=== PATIENT | female | born 1960 | race Caucasian/White ===

== ENCOUNTER 2021-12-31 16:18 | Inpatient (IN) ==
[2021-12-31] MEDS ORDERED: IOPAMIDOL 100 ML BOTTLE IV ONE (16:19)
[2021-12-31] MEDS ORDERED: IPRATROPIUM/ALBUTEROL 3 ML AMPUL.NEB NEB ONE ×3 (16:24→20:20)
[2021-12-31] MEDS ORDERED: methylPREDNISolone SOD SUCC 125 MG/2 ML VIAL IV ONE (16:35)
--- NOTE | 2021-12-31 16:43 | Emergency Department Note ---
SOB HPI General Chief Complaint: Shortness of Breath/Dyspnea Stated Complaint: shortness of breath Time Seen by Provider: 12/31/21 16:24 Source: patient Mode of arrival: wheelchair Limitations: no limitations History of Present Illness HPI Narrative: Narrative: 62-year-old female who with a history of suprapubic catheter, degenerative disc disease, chronic pain, asthma, hypertension, psoriasis and anxiety disorder presents the ER from the [facility] where she had oxygen saturations in the 70s. She states her asthma has been flaring up a lot lately and she uses albuterol as needed but it has not been helping her today. She also takes fluticasone. But this is intranasally for allergies. She denies chest pain, chest pressure, fever or chills. She states she has been wheezing significantly and has a hard time breathing. Related Data Home Medications Medication Instructions Recorded Confirmed albuterol sulfate 90 mcg/actuation 2 puff INHALATION .Q4-6H g 04/03/20 12/31/21 aerosol inhaler (ProAir HFA) fluticasone propionate 50 1 spray INTRANASAL PRN ml 04/03/20 12/31/21 mcg/actuation nasal spray,suspension gabapentin 800 mg tablet 800 mg PO TID 04/03/20 12/31/21 (Neurontin) hydrocodone 10 mg-acetaminophen 1 tab PO TID tab 04/03/20 12/31/21 325 mg tablet ([place]) omeprazole 40 mg capsule,delayed 40 mg PO QDAY 04/03/20 12/31/21 release clonazepam 1 mg tablet 1 tab PO TID PRN 12/31/21 12/31/21 cyclobenzaprine 10 mg tablet 1 tab PO HS 12/31/21 12/31/21 tizanidine 4 mg tablet 1 tab PO TID 12/31/21 12/31/21 Previous Rx's Medication Instructions Recorded guaifenesin 400 mg tablet 400 mg PO .q6 hours PRN #30 tab 07/09/18 Allergies Allergy/AdvReac Type Severity Reaction Status Date / Time codeine Allergy Severe Headache Verified 12/31/21 16:21 Sulfa (Sulfonamide Allergy Mild Unknown Verified 12/31/21 16:21 Antibiotics) methylprednisolone AdvReac Severe Nausea Verified 12/31/21 16:21 Review of Systems ROS ROS Narrative: Narrative: All systems ED: reviewed and negative except as stated. PFSH Narrative Patient History Narrative: Narrative: Medical/Surgical/Family History All Active Problems (Updated 12/31/21 @ 19:22 by Collin Moctezuma PA-C) Asthma exacerbation (Acute) Acute hypoxemic respiratory failure (Acute) Acute exacerbation of chronic obstructive pulmonary disease (COPD) (Acute) Current smoker (Acute) Suprapubic catheter dysfunction (Acute) Encounter for suprapubic catheter care (Acute) Chronic suprapubic catheter (Acute) History of mandibular surgery (Acute) History of surgery (Chronic ~2011) Chronic pain syndrome (Chronic) Degenerative disc disease (Chronic) Acute retention of urine (Chronic) Ovarian mass (Chronic) Neurogenic bladder (Chronic) Abnormal weight loss (Acute) Lumbar back pain with radiculopathy affecting left lower extremity (Chronic) Muscle cramps (Chronic) Hypomagnesemia (Chronic) Vitamin D deficiency (Chronic) Spasm of back muscles (Chronic) Hypertension (Chronic) Vitamin B 12 deficiency (Chronic 09/12/13) Allergic rhinitis (Chronic) Psoriasis (Chronic) Peripheral neuropathy (Chronic 09/12/13) Osteoporosis (Chronic 06/15/13) Migraine (Chronic) Menopausal syndrome (Chronic 04/18/13) Low back pain (Chronic) snf current use of anticoagulant (Chronic) Gastroesophageal reflux (Chronic) Depression (Chronic) Chronic pain (Chronic) Breast pain (Chronic 04/18/13) Asthma (Chronic) Anxiety disorder (Chronic) Alcohol abuse, in remission (Chronic) Medical History (Updated 12/31/21 @ 19:22 by Collin Moctezuma PA-C) Acute retention of urine Alcohol abuse, in remission Allergic rhinitis Anemia Angioedema (09/19/14) Anxiety disorder Arthropathy Asthma Breast pain (04/18/13) Capsular contracture of breast implant (04/18/13) Chronic pain Chronic pain syndrome Degenerative disc disease Depression Edema Encounter for routine gynecological examination (04/18/13) Family history of diabetes mellitus (03/16/13) Fatigue Gastric ulcer, chronic (08/23/11) [facility] Dr. 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 Spasm of back muscles Thrombosis/embolism, venous Tobacco abuse (12/14/13) still smoking advised to quit, counselled for 5 mins UTI (urinary tract infection) Vitamin B 12 deficiency (09/12/13) on 1,000mcg daily check b12 levels Vitamin D deficiency Surgical History History of breast augmentation (~1987) bilateral implants, with intracapsular leaks, but not extracapsular. History of colonoscopy done in jul 2011, while patient was inpatient for GI bleed. as per note in system, no abnormalities detected History of esophagogastroduodenoscopy (08/23/11) [facility] Dr. Cooper did an exploratory laparotomy with enterotomy and oversew of bleeding duodenal ulcer converted to Bilroth II partial gastric resection with gastrojejunostomy History of mandibular surgery History of surgery (~2011) Perforated ulcer; partial pancreas, partial liver, partial small intestine and partial stomach removal Family History Brother Alcohol abuse Grandfather Alcohol abuse Maternal Uncle Alcohol abuse Mother Alzheimer's disease Type 2 diabetes mellitus Manic affective disorder, recurrent episode, unspecified degree Diabetes mellitus Unknown No problems noted. Father Cardiac disease Malignant neoplasm of pancreas May have had but does not know details Schizophrenia Social History Smoking Status: Current every day smoker Alcohol Intake Frequency: does not drink Substance Use: marijuana Exam Narrative Narrative: Narrative: Gen: Patient is tripoding having difficulty breathing Eyes: PERRL, no conjunctival injection , and symmetrical lids. Sclerae non icteric HENMT: Normocephalic Atraumatic head, external nose and ears. Moist MM. Neck: Symmetric, trachea midline, no accessory muscle use CVS: +S1/S2, No murmurs or gallops. Radial pulses 2+ and equal bilat. No swelling RESP: Patient has very poor air movement with diffuse wheezing heard throughout GI: Nontender/Nondistended (NTND), No focal tenderness suprapubic catheter in place MSK: Extremities w/o deformity or ttp. No cyanosis or clubbing. Skin: Warm, Dry . No rashes or lesions . Cap refill less than 2. Neuro: No focal neurological deficit Psych: Awake, Alert, & Oriented (AAO) x3. Appropriate mood and affect . General Limitations: no limitations Course Vital Signs Vital signs: Vital Signs Temperature 97.2 F 12/31/21 16:18 Pulse Rate 119 H 12/31/21 16:18 Respiratory Rate 22 12/31/21 16:18 Blood Pressure 148/90 12/31/21 16:18 Pulse Oximetry (%) 70 L 12/31/21 16:18 Temperature 97.2 F 12/31/21 16:18 Pulse Rate 96 H 12/31/21 19:17 Respiratory Rate 16 12/31/21 19:17 Blood Pressure 132/87 12/31/21 16:46 Pulse Oximetry (%) 95 12/31/21 19:17 [facility] MDM Narrative Medical decision making narrative: Narrative: Patient presented with oxygen saturation in the 70s, she was placed on high flow oxygen, she was given [id number] DuoNeb's and 125 mg of Solu-Medrol. An EKG and chest x-ray was obtained as well as CBC, CMP and troponin. As well as venous blood gas and COVID testing. CBC: Unremarkable CMP: Hyponatremia 126 otherwise unremarkable CXR: Normal Troponin: Low Venous blood gas: Lactate normal, CO2 64, chronic retention COVID: EKG: Sinus tachycardia at a rate of 102 with right atrial enlargement, posterior fascicular block, no ST changes to suggest ischemia, computer is falsely calling artifact possible acute pericarditis Patient got up and ambulated to the bathroom under her own accord and had saturations in the 60s. Patient will also be given magnesium at this time and another DuoNeb to round out 3 DuoNeb's. Hospitalist will be consulted for admission. She remains to be extremely wheezy with very poor air movement. Hospitalist: Dr Marvin Graciously agreed to admit the patient Lab Data Result diagrams: 12/31/21 16:40 12/31/21 16:40 Labs: Lab Results 12/31/21 12/31/21 12/31/21 Range/Units 16:40 16:40 16:44 WBC 7.7 (4.5-11.0) K/mcL RBC 4.25 (3.59-5.38) M/mcL Hgb 14.1 (11.2-15.7) g/dL Hct 42.3 (34.1-44.9) % MCV 99.5 (80.0-100.0) fL MCH 33.2 (26.0-34.0) pg MCHC 33.3 (31.0-36.0) g/dL RDW 10.8 L (11.5-14.5) % Plt Count 248 (140-440) K/mcL MPV 8.7 (7.4-10.4) fL Neut % (Auto) 67.1 (38.0-78.0) % Lymph % (Auto) 22.9 (15.5-49.0) % Dane % (Auto) 8.0 (1.0-12.0) % Eos % (Auto) 1.6 (0.0-7.0) % Baso % (Auto) 0.4 (0.0-2.0) % Lymph # (Auto) 1.77 (1.50-4.80) K/mcL Dane # (Auto) 0.62 (0.10-0.90) K/mcL Eos # (Auto) 0.12 (0.00-0.70) K/mcL Baso # (Auto) 0.03 (0.00-0.30) K/mcL Absolute Neutrophils 5.18 (1.80-8.00) K/mcL POC VBG pH 7.32 (7.32-7.42) POC VBG pCO2 at Temp 64.4 H* (41-51) POC VBG pO2 100 H (25-40) POC VBG HCO3 33.3 H (24-28) POC VBG Total CO2 35.0 H (25-29) POC Venous O2 Sat 97.0 H (40-70) POC VBG Base Excess 7.0 H* (-2-2) Sodium 126 L (133-145) mmol/L Potassium 4.7 (3.3-5.1) mmol/L Chloride 88 L (96-108) mmol/L Carbon Dioxide 32 H (22-30) mmol/L Anion Gap 6.0 L (8.0-16.0) BUN 8 (8-23) mg/dL Creatinine 0.5 L (0.6-1.1) mg/dL GFR Calculation 104 Glucose 87 (70-105) mg/dL POC Venous Lactate 0.6 (0.5-2) Calcium 8.8 (8.6-10.4) mg/dL Total Bilirubin 0.2 (0.1-1.0) mg/dL AST 16 (<32) U/L ALT 11 (<40) U/L Alkaline Phosphatase 45 (39-117) U/L Total Protein 6.9 (5.9-8.4) gm/dL Albumin 4.3 (3.2-5.2) gm/dL Globulin 2.6 (2.2-3.7) gm/dL Albumin/Globulin Ratio 1.7 (1.0-2.3) POC Troponin I (0.02-0.08) 12/31/21 Range/Units 16:46 WBC (4.5-11.0) K/mcL RBC (3.59-5.38) M/mcL Hgb (11.2-15.7) g/dL Hct (34.1-44.9) % MCV (80.0-100.0) fL MCH (26.0-34.0) pg MCHC (31.0-36.0) g/dL RDW (11.5-14.5) % Plt Count (140-440) K/mcL MPV (7.4-10.4) fL Neut % (Auto) (38.0-78.0) % Lymph % (Auto) (15.5-49.0) % Dane % (Auto) (1.0-12.0) % Eos % (Auto) (0.0-7.0) % Baso % (Auto) (0.0-2.0) % Lymph # (Auto) (1.50-4.80) K/mcL Dane # (Auto) (0.10-0.90) K/mcL Eos # (Auto) (0.00-0.70) K/mcL Baso # (Auto) (0.00-0.30) K/mcL Absolute Neutrophils (1.80-8.00) K/mcL POC VBG pH (7.32-7.42) POC VBG pCO2 at Temp (41-51) POC VBG pO2 (25-40) POC VBG HCO3 (24-28) POC VBG Total CO2 (25-29) POC Venous O2 Sat (40-70) POC VBG Base Excess (-2-2) Sodium (133-145) mmol/L Potassium (3.3-5.1) mmol/L Chloride (96-108) mmol/L Carbon Dioxide (22-30) mmol/L Anion Gap (8.0-16.0) BUN (8-23) mg/dL Creatinine (0.6-1.1) mg/dL GFR Calculation Glucose (70-105) mg/dL POC Venous Lactate (0.5-2) Calcium (8.6-10.4) mg/dL Total Bilirubin (0.1-1.0) mg/dL AST (<32) U/L ALT (<40) U/L Alkaline Phosphatase (39-117) U/L Total Protein (5.9-8.4) gm/dL Albumin (3.2-5.2) gm/dL Globulin (2.2-3.7) gm/dL Albumin/Globulin Ratio (1.0-2.3) POC Troponin I 0.01 L (0.02-0.08) ED POC Tests ED POC Tests: JAXON - SARS Antigen Negative Discharge Plan Patient/Caregiver Discharge Instructions Pt seen by INVESTIGATIVE AGENT/PA only: Yes Clinical Impression: Asthma exacerbation Patient Disposition: Xfer As Inpt ([facility]) Follow up with: Garland Cadena ARNP [Primary Care Provider] - Prescriptions: No Action fluticasone propionate 50 mcg/actuation spray,suspension 1 spray INTRANASAL PRN 0RF Rx Instructions: administer into each nostril omeprazole 40 mg capsule,delayed release(DR/EC) 40 mg PO QDAY 0RF albuterol sulfate [ProAir HFA] 90 mcg/actuation HFA aerosol inhaler 2 puff INHALATION .Q4-6H 0RF gabapentin [Neurontin] 800 mg tablet 800 mg PO TID 0RF hydrocodone-acetaminophen [[place]] 10-325 mg tablet 1 tab PO Q4H 0RF guaifenesin 400 mg tablet 400 mg PO .q6 hours PRN (Reason: congestion) Qty: 30 0RF cyclobenzaprine 10 mg tablet 1 tab PO HS 0RF tizanidine 4 mg tablet 1 tab PO TID 0RF clonazepam 1 mg tablet 1 tab PO TID PRN (Reason: Pain) 0RF Plan of Treatment: At this time, she will be started on duo nebs, and Pulmicort. She received Solu-Medrol 125 mg IV x1. She will be empirically covered with ceftriaxone and Zithromax. In the interim, respiratory panel, COVID-19 PCR, and CT chest angiogram is pending. We will continue supplemental O2 for sat goal greater t peres 92%.
--- NOTE | 2021-12-31 16:48 | XRay Report ---
INDICATION: SOB TECHNIQUE: AP portable supine chest x-ray COMPARISON: Previous chest x-ray dated 01/25/2012 FINDINGS: Lungs:No focal pulmonary parenchymal infiltrate or mass Heart, vascular:No significant cardiomegaly. Pulmonary vascularity is normal. No pulmonary edema or pulmonary congestion Mediastinum, stone:No mediastinal widening. No hilar mass Pleura:No pleural fluid. No pleural-based mass or calcification Skeletal:Negative. There are densely calcified breast implants, unchanged IMPRESSION: 1. No acute abnormality 2. No interval change since 01/25/2012 Interpreted and Authenticated by: Marck Sanchez 12/31/21
[2021-12-31] MEDS ORDERED: MAGNESIUM SULFATE 2 GM/50 ML BAG IV ONE (17:08)
[2021-12-31 17:22] LABS: Basophils # (Auto) 0.03 K/mcL (0.00-0.30); Basophils % (Auto) 0.4 % (0.0-2.0); Eosinophils # (Auto) 0.12 K/mcL (0.00-0.70); Eosinophils % (Auto) 1.6 % (0.0-7.0); Hematocrit 42.3 % (34.1-44.9); Hemoglobin 14.1 g/dL (11.2-15.7); Lymphocytes # (Auto) 1.77 K/mcL (1.50-4.80); Lymphocytes % (Auto) 22.9 % (15.5-49.0); Mean Cell Volume 99.5 fL (80.0-100.0); Mean Corpuscular HGB Conc 33.3 g/dL (31.0-36.0); Mean Platelet Volume 8.7 fL (7.4-10.4); Monocytes # (Auto) 0.62 K/mcL (0.10-0.90); Neutrophils % (Auto) 67.1 % (38.0-78.0); Platelet Count 248 K/mcL (140-440); RBC 4.25 M/mcL (3.59-5.38); Red Cell Distribution Width 10.8 % (11.5-14.5); WBC 7.7 K/mcL (4.5-11.0)
[2021-12-31 17:43] LABS: ALT/SGPT 11 U/L (<40); AST/SGOT 16 U/L (<32); Albumin 4.3 gm/dL (3.2-5.2); Albumin/Globulin Ratio 1.7 (1.0-2.3); Alkaline Phosphatase 45 U/L (39-117); Bilirubin,Total 0.2 mg/dL (0.1-1.0); Blood Urea Nitrogen 8 mg/dL (8-23); Calcium 8.8 mg/dL (8.6-10.4); Carbon Dioxide 32 mmol/L (22-30); Chloride 88 mmol/L (96-108); Globulin 2.6 gm/dL (2.2-3.7); Glomerular Filtration Rate 104; Glucose 87 mg/dL (70-105)
[2021-12-31] MEDS ORDERED: cefTRIAXone 1 GM VIAL IV ONE (17:47)
[2021-12-31] MEDS ORDERED: AZITHROMYCIN 500 MG in DEXTROSE 5% IN WATER 250 ML IV ONE (17:47)
--- NOTE | 2021-12-31 18:03 | Internal Med History&Physical ---
HPI History of Present Illness Patient information: Note initiated : 12/31/21 at 5:59 pm Service Date, if different from initiated Date: [as above] Patient: Dorcas Velasquez a 61 y/o F admitted on for shortness of breath. Chief Complaint: [SOB] Chief complaint: SOB History of present illness: Ms. Velasquez is a 61 year old F smoker with a past medical history significant for COPD, chronic pain syndrome, and anxiety/depression who presents to the hospital with 1 day onset of progressive dyspnea. She states that she has had chronic respiratory issues in the past and is presented to the hospital several times but unfortunately continues to smoke 1 to 5 cigarettes daily. She denied a productive cough, fevers or chills. She denies any sick contacts. In terms of COVID-19, she is only received 1 vaccine and she is not interested in further vaccinations. She states that her rapid COVID-19 was negative. On arrival to the ER, she was hemodynamically tenuous and afebrile. Her O2 sat was in the 60s to 70s. She was placed on supplemental O2 and her O2 recovered quite quickly. The patient's chest x-ray revealed no acute abnormality. The hospitalist service was asked admit the patient for further management and evaluation of her acute hypoxemic respiratory failure in the setting of COPD exacerbation. Review of Systems All systems: reviewed and no additional remarkable complaints except as stated Constitutional Constitutional: Present as per HPI EENT Eyes: Present as per HPI; Absent blurry vision Cardiovascular Cardiovascular: Present as per HPI; Absent chest pain, dyspnea, dyspnea on exertion, leg edema or palpatations Respiratory Respiratory: Present as per HPI, dyspnea, dyspnea on exertion and wheezing; Absent cough or stridor Gastrointestinal Gastrointestinal: Present as per HPI; Absent abdominal pain, diarrhea, dysphagia, hematemesis, melena, nausea or vomiting Musculoskeletal Musculoskeletal: Present as per HPI; Absent joint swelling, limited range of motion, muscle cramps, muscle weakness or myalgias Integumentary Integumentary: Present as per HPI; Absent erythema, new lesions, rash or wounds Neurological Neurological: Present as per HPI; Absent abnormal gait, behavioral changes, focal weakness, headache(s), loss of vision, numbness, sensory deficit or syncope Endocrine Endocrine: Absent change in body appearance, fatigue or heat intolerance Hematologic/Lymphatic Hematologic/Lymphatic: Present as per HPI PFSH PFSH All Active Problems (Updated 12/31/21 @ 18:02 by Doc Wong MD) Acute hypoxemic respiratory failure (Acute) Acute exacerbation of chronic obstructive pulmonary disease (COPD) (Acute) Current smoker (Acute) Suprapubic catheter dysfunction (Acute) Encounter for suprapubic catheter care (Acute) Chronic suprapubic catheter (Acute) History of mandibular surgery (Acute) History of surgery (Chronic ~2011) Chronic pain syndrome (Chronic) Degenerative disc disease (Chronic) Acute retention of urine (Chronic) Ovarian mass (Chronic) Neurogenic bladder (Chronic) Abnormal weight loss (Acute) Lumbar back pain with radiculopathy affecting left lower extremity (Chronic) Muscle cramps (Chronic) Hypomagnesemia (Chronic) Vitamin D deficiency (Chronic) Spasm of back muscles (Chronic) Hypertension (Chronic) Vitamin B 12 deficiency (Chronic 09/12/13) Allergic rhinitis (Chronic) Psoriasis (Chronic) Peripheral neuropathy (Chronic 09/12/13) Osteoporosis (Chronic 06/15/13) Migraine (Chronic) Menopausal syndrome (Chronic 04/18/13) Low back pain (Chronic) 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) Gastroesophageal reflux (Chronic) Depression (Chronic) Chronic pain (Chronic) Breast pain (Chronic 04/18/13) Asthma (Chronic) Anxiety disorder (Chronic) Alcohol abuse, in remission (Chronic) Medical History (Updated 12/31/21 @ 18:02 by Doc Wong MD) Acute retention of urine Alcohol abuse, in remission Allergic rhinitis Anemia Angioedema (09/19/14) Anxiety disorder Arthropathy Asthma Breast pain (04/18/13) Capsular contracture of breast implant (04/18/13) Chronic pain Chronic pain syndrome Degenerative disc disease Depression Edema Encounter for routine gynecological examination (04/18/13) Family history of diabetes mellitus (03/16/13) Fatigue Gastric ulcer, chronic (08/23/11) [facility] Dr. Cooper did an exploratory laparotomy with enterotomy and oversew of bleeding duodenal ulcer converted to Bilroth II partial gastric resection with gastrojejunostomy Gastroesophageal reflux Hyperkalemia NOrmal now, Hypertension Hypokalemia (09/01/11) As in patient Hypomagnesemia snf current use of anticoagulant Low back pain chr, refer to PT Menopausal syndrome (04/18/13) Migraine Muscle cramps Neurogenic bladder Osteoporosis (06/15/13) Calcium Vit D3 1,000 units Alendronate 70mg q weekly Ovarian mass Pain in joint christian knee pain, refer to PT Pain in joint, lower leg Peripheral neuropathy (09/12/13) Psoriasis Pulmonary embolism s/p treatment for 6 months Routine cervical smear (04/18/13) Spasm of back muscles chr issue, now has been flaring up, remote h/o trauma, notes used to use soma before, will give trial of cyclobenzapril 5mg tid. Spasm of back muscles Thrombosis/embolism, venous Tobacco abuse (12/14/13) still smoking advised to quit, counselled for 5 mins UTI (urinary tract infection) Vitamin B 12 deficiency (09/12/13) on 1,000mcg daily check b12 levels Vitamin D deficiency Surgical History History of breast augmentation (~1987) bilateral implants, with intracapsular leaks, but not extracapsular. History of colonoscopy done in jul 2011, while patient was inpatient for GI bleed. as per note in system, no abnormalities detected History of esophagogastroduodenoscopy (08/23/11) [facility] Dr. Cooper did an exploratory laparotomy with enterotomy and oversew of bleeding duodenal ulcer converted to Bilroth II partial gastric resection with gastrojejunostomy History of mandibular surgery History of surgery (~2011) Perforated ulcer; partial pancreas, partial liver, partial small intestine and partial stomach removal Family History Brother Alcohol abuse Grandfather Alcohol abuse Maternal Uncle Alcohol abuse Mother Alzheimer's disease Type 2 diabetes mellitus Manic affective disorder, recurrent episode, unspecified degree Diabetes mellitus Unknown No problems noted. Father Cardiac disease Malignant neoplasm of pancreas May have had but does not know details Schizophrenia Social History marital status: legally occupational status: disabled physical activity: none alcohol intake frequency: does not drink substance use type: marijuana additional history: Patient has a prescription for medical marijuana. MEDS/ALLERGIES Home Medications and Allergies Home Medications Medication Instructions Recorded Confirmed Type guaifenesin 400 mg tablet 400 mg PO .q6 hours PRN #30 tab 07/09/18 12/31/21 Rx albuterol sulfate 90 mcg/actuation 2 puff INHALATION .Q4-6H g 04/03/20 12/31/21 History aerosol inhaler (ProAir HFA) fluticasone propionate 50 1 spray INTRANASAL PRN ml 04/03/20 12/31/21 History mcg/actuation nasal spray,suspension gabapentin 800 mg tablet 800 mg PO TID 04/03/20 12/31/21 History (Neurontin) hydrocodone 10 mg-acetaminophen 1 tab PO TID tab 04/03/20 12/31/21 History 325 mg tablet ([place]) omeprazole 40 mg capsule,delayed 40 mg PO QDAY 04/03/20 12/31/21 History release alprazolam 2 mg tablet See Rx Instructions PO QDAY tab 04/24/20 12/31/21 History Allergies Allergy/AdvReac Type Severity Reaction Status Date / Time codeine Allergy Severe Headache Verified 12/31/21 16:21 Sulfa (Sulfonamide Allergy Mild Unknown Verified 12/31/21 16:21 Antibiotics) methylprednisolone AdvReac Severe Nausea Verified 12/31/21 16:21 EXAM Constitutional Vitals: Temp Pulse Resp BP Pulse Ox 97.2 F 88 14 132/87 100 12/31/21 16:18 12/31/21 17:34 12/31/21 17:34 12/31/21 16:46 12/31/21 17:34 General appearance: average body habitus Head Head exam: Present atraumatic, normal inspection and normocephalic Eye Eye exam: Present EOMI, normal appearance and PERRL; Absent conjunctival injection ENT ENT exam: Present normal exam; Absent mucous membranes dry Neck Neck exam: Present full ROM; Absent lymphadenopathy Respiratory Respiratory exam: Present decreased breath sounds and prolonged expiratory phase; Absent CTAB, respiratory distress or wheezes Cardiovascular Cardiovascular exam: Present normal rate and rhythm and RRR; Absent JVD GI/Abdominal GI/Abdominal exam: Present normal bowel sounds and soft; Absent diminished bowel sounds, distended, guarding, mass, rebound or tenderness Neurological Exam Neurological exam: Present alert, CN II-XII intact and oriented X3 Psychiatric Psychiatric exam: Present normal affect and normal mood Skin Skin exam: Present intact and warm; Absent erythema, pallor, petechiae or rash DATA Data Completed and Pending Labs: Labs from last 24 hours 12/31/21 12/31/2122 16:46 16:44 16:40 WBC RBC Hgb Hct MCV MCH MCHC RDW Plt Count MPV Neut % (Auto) Lymph % (Auto) [place] % (Auto) Eos % (Auto) Baso % (Auto) Lymph # (Auto) [place] # (Auto) Eos # (Auto) Baso # (Auto) Absolute Neutrophils POC VBG pH 7.32 POC VBG pCO2 at Temp 64.4 H* POC VBG pO2 100 H POC VBG HCO3 33.3 H POC VBG Total CO2 35.0 H POC Venous O2 Sat 97.0 H POC VBG Base Excess 7.0 H* Sodium 126 L Potassium 4.7 Chloride 88 L Carbon Dioxide 32 H Anion Gap 6.0 L BUN 8 Creatinine 0.5 L GFR Calculation 104 Glucose 87 POC Venous Lactate 0.6 Calcium 8.8 Total Bilirubin 0.2 AST 16 ALT 11 Alkaline Phosphatase 45 Total Protein 6.9 Albumin 4.3 Globulin 2.6 Albumin/Globulin Ratio 1.7 POC Troponin I 0.01 L 12/31/21 16:40 WBC 7.7 RBC 4.25 Hgb 14.1 Hct 42.3 MCV 99.5 MCH 33.2 MCHC 33.3 RDW 10.8 L Plt Count 248 MPV 8.7 Neut % (Auto) 67.1 Lymph % (Auto) 22.9 [place] % (Auto) 8.0 Eos % (Auto) 1.6 Baso % (Auto) 0.4 Lymph # (Auto) 1.77 [place] # (Auto) 0.62 Eos # (Auto) 0.12 Baso # (Auto) 0.03 Absolute Neutrophils 5.18 POC VBG pH POC VBG pCO2 at Temp POC VBG pO2 POC VBG HCO3 POC VBG Total CO2 POC Venous O2 Sat POC VBG Base Excess Sodium Potassium Chloride Carbon Dioxide Anion Gap BUN Creatinine GFR Calculation Glucose POC Venous Lactate Calcium Total Bilirubin AST ALT Alkaline Phosphatase Total Protein Albumin Globulin Albumin/Globulin Ratio POC Troponin I A/P Assessment and plan (1) Current smoker: Status: Acute (2) Acute exacerbation of chronic obstructive pulmonary disease (COPD): Status: Acute (3) Acute hypoxemic respiratory failure: Status: Acute (4) Depression: Status: Chronic (5) Chronic pain: Status: Chronic (6) Anxiety disorder: Status: Chronic (7) Alcohol abuse, in remission: Status: Chronic Narrative A/P Narrative: The patient has acute hypoxemic respiratory failure in the setting of COPD exacerbation she continues to smoke. Smoking cessation counseling was provided. Plan of Treatment: At this time, she will be started on duo nebs, and Pulmicort. She received Solu-Medrol 125 mg IV x1. She will be empirically covered with ceftriaxone and Zithromax. In the interim, respiratory panel, COVID-19 PCR, and CT chest angiogram is pending. We will continue supplemental O2 for sat goal greater than 92%. Time Spent With Patient Time: Total time spent is greater than 50% in coordination of care (as documented) at patient's floor/unit and/or counseling patient: Total time spent with greater than 50% in coordination of care (as documented) at patient's floor/unit and/or counseling patient:: 50 - 70 minutes
--- NOTE | 2021-12-31 19:49 | Cat Scan Report ---
INDICATION: hypoxic resp failure COMPARISON: Previous chest x-ray dated 03/02/2022. Previous chest CTA dated 01/25/2012 TECHNIQUE: Axial images obtained through the chest. 80ml Isovue 370 injected intravenously, and scanning was performed during pulmonary arterial phase. Sagittally and coronally reformatted images were obtained. MIP reformatted images. FINDINGS: Lungs:Severe centrilobular emphysema. No focal pulmonary parenchymal mass or infiltrate. No focal abnormality. Mediastinum, vascular:Main pulmonary artery, right pulmonary artery, left pulmonary artery are negative. No intraluminal filling defects. No lobar, segmental, or subsegmental emboli. Thoracic aorta is negative. No aneurysmal dilatation No pathologic mediastinal or hilar adenopathy Main pulmonary artery measures 3.0 cm in cross-sectional diameter. This is borderline enlarged Heart:No cardiomegaly. No pericardial effusion. There is no reflux of contrast material into the inferior vena cava or hepatic veins Pleura:No significant pleural effusion. No pleural mass or calcification Axilla, supraclavicular regions, chest wall:No pathologic axillary or supraclavicular adenopathy. Musculoskeletal:Compression deformities of T7 and T8 vertebral bodies are new since previous examination. Appearance is consistent with benign osteoporotic fractures. Sternum is negative. Ribs are negative. No fracture. Incidental note is made of densely calcified breast implants Upper Abdomen:Negative IMPRESSION: 1. Severe centrilobular emphysema 2. Negative pulmonary CTA 3. Compression deformities of the T7 and T8 vertebral bodies, consistent with benign osteoporotic fractures. These are new since 2011 The exam was performed using radiation dose optimization techniques including, but not limited to, automated exposure control, adjustment of the mA and/or kV according to patient size and use of iterative reconstruction technique. Interpreted and Authenticated by: Marck Sanchez 12/31/21
[2021-12-31] MEDS ORDERED: SENNOSIDES 1 TABLET PO PRN (20:03)
[2021-12-31] MEDS ORDERED: ACETAMINOPHEN 325 MG TABLET PO PRN (20:03)
[2021-12-31] MEDS ORDERED: ONDANSETRON 4 MG/2 ML VIAL IV PRN (20:03)
[2021-12-31] MEDS ORDERED: LACTULOSE 20 GM/30 ML ORAL.SOL PO PRN (20:03)
[2021-12-31] MEDS: IPRATROPIUM/ALBUTEROL 3 ML AMPUL.NEB NEB SCH (20:15)
[2021-12-31] MEDS: BUDESONIDE 0.5 MG/2 ML AMPUL.NEB NEB SCH (20:15)
[2021-12-31] MEDS ORDERED: GABAPENTIN 400 MG CAPSULE PO SCH (21:00)
[2021-12-31] MEDS: DOCUSATE SODIUM 100 MG CAPSULE PO SCH (21:36)
[2021-12-31] MEDS: GABAPENTIN 400 MG CAPSULE PO SCH (22:10)
[2021-12-31] MEDS: 0.9 % SODIUM CHLORIDE 10 ML SYRINGE IV SCH (22:11)
[2021-12-31] MEDS ORDERED: GABAPENTIN 300 MG CAPSULE ONE (22:16)
[2021-12-31] MEDS ORDERED: GABAPENTIN 100 MG CAPSULE PO ONE (22:17)
[2022-01-01] MEDS: HYDROcodone/APAP 10/325MG TABLET PO PRN ×5 (00:28→23:24)
[2022-01-01] MEDS: IPRATROPIUM/ALBUTEROL 3 ML AMPUL.NEB NEB SCH ×4 (00:28→19:18)
[2022-01-01] MEDS: 0.9 % SODIUM CHLORIDE 10 ML SYRINGE IV SCH ×3 (05:13→20:21)
[2022-01-01 06:52] LABS: Basophils # (Auto) 0 K/mcL (0.00-0.30); Basophils % (Auto) 0 % (0.0-2.0); Eosinophils # (Auto) 0 K/mcL (0.00-0.70); Eosinophils % (Auto) 0 % (0.0-7.0); Hematocrit 41.4 % (34.1-44.9); Hemoglobin 13.7 g/dL (11.2-15.7); Lymphocytes # (Auto) 0.67 K/mcL (1.50-4.80); Lymphocytes % (Auto) 13.7 % (15.5-49.0); Mean Corpuscular HGB Conc 33.1 g/dL (31.0-36.0); Mean Platelet Volume 8.7 fL (7.4-10.4); Monocytes # (Auto) 0.11 K/mcL (0.10-0.90); Monocytes % (Auto) 2.3 % (1.0-12.0); Platelet Count 236 K/mcL (140-440); RBC 4.14 M/mcL (3.59-5.38); Red Cell Distribution Width 10.6 % (11.5-14.5); WBC 4.9 K/mcL (4.5-11.0)
[2022-01-01 07:29] LABS: Blood Urea Nitrogen 9 mg/dL (8-23); Calcium 8.7 mg/dL (8.6-10.4); Carbon Dioxide 28 mmol/L (22-30); Chloride 86 mmol/L (96-108); Glomerular Filtration Rate 111; Glucose 117 mg/dL (70-105)
[2022-01-01] MEDS: BUDESONIDE 0.5 MG/2 ML AMPUL.NEB NEB SCH ×2 (07:38→19:18)
[2022-01-01] MEDS: GABAPENTIN 400 MG CAPSULE PO SCH ×3 (07:38→20:21)
[2022-01-01] MEDS: ENOXAPARIN 40 MG/0.4 ML SYRINGE SQ SCH (07:38)
[2022-01-01] MEDS: DOCUSATE SODIUM 100 MG CAPSULE PO SCH ×2 (07:39→20:21)
[2022-01-01] MEDS: OMEPRAZOLE 20 MG CAPSULE PO SCH (07:40)
[2022-01-01] MEDS: AZITHROMYCIN 250 MG TABLET PO SCH (08:56)
[2022-01-01] MEDS: cefTRIAXone 1 GM VIAL IV SCH (08:56)
[2022-01-01] MEDS: NICOTINE 14 MG PATCH TOPICAL SCH (11:48)
--- NOTE | 2022-01-01 13:20 | Internal Med Progress Note ---
SUBJECTIVE Subjective Patient information: Note initiated : 01/01/22 at 1:18 pm Service Date, if different from initiated Date: as above Patient: Dorcas Velasquez 61 y/o F admitted on 12/31/21 for shortness of breath. Chief Complaint: [SOB] Principal diagnosis: Acute COPD exacerbation Interval history: The patient was resting comfortably in bed. She had no active complaints or concerns. She was pleasant, calm and good spirits. We discussed plan of care and disposition. Constitutional Vitals: Vital Signs Temp Pulse Resp BP Pulse Ox 97.2 F 80 16 124/70 95 01/01/22 12:14 01/01/22 13:07 01/01/22 13:07 01/01/22 12:14 01/01/22 12:14 Period Temp Pulse Resp BP Sys/Robles Pulse Ox Last 24 Hr 97.1 F-98.4 F 79-119 9-25 112-155/58-101 70-100 Intake and Output 12/31/21 01/01/22 01/01/22 21:59 05:59 13:59 Intake Total 900 2200 240 Output Total 1200 1400 250 Balance -300 800 -10 Weight 68.402 kg Intake & Output: Intake & Output 12/31/21 01/01/22 01/01/22 21:59 05:59 13:59 Intake Total 900 2200 240 Output Total 1200 1400 250 Balance -300 800 -10 Weight 68.402 kg Intake: IV 300 Zithromax 500 mg In Dextrose 5% 250 in Water 250 ml @ 250 mls/hr IV ONCE ONE Rx#:[id number] Oral 600 2200 240 Output: Urine Catheter Amount 1200 1400 250 Other: Meal Dinner Lunch Percent of Meal Consumed 100% 100% Feeding Ability Independent Urine Appearance Clear Clear Suprapubic Clear Urine Color Pale Pale Suprapubic Pale Urine Odor Normal Normal Head Head exam: Present atraumatic and normal inspection Eye Eye exam: Present normal appearance ENT ENT exam: Present mucous membranes moist, normal exam and normal external ear exam Neck Neck exam: Present normal inspection Respiratory Respiratory exam: Present decreased breath sounds and wheezes Cardiovascular Cardiovascular exam: Present normal rate and rhythm GI/Abdominal GI/Abdominal exam: Present normal bowel sounds Back Exam Back exam: Present normal inspection Neurological Exam Neurological exam: Present alert and oriented X3 Skin Skin exam: Present intact and warm OBJ DATA Labs CBC & Chem 7: 01/01/22 05:15 01/01/22 05:15 Labs: Abnormal Lab Results 01/01/22 01/01/22 12/31/21 05:15 05:15 16:46 RDW 10.6 L Neut % (Auto) 84.0 H Lymph % (Auto) 13.7 L Lymph # (Auto) 0.67 L POC VBG pCO2 at Temp POC VBG pO2 POC VBG HCO3 POC VBG Total CO2 POC Venous O2 Sat POC VBG Base Excess Sodium 125 L Chloride 86 L Carbon Dioxide Anion Gap Creatinine 0.4 L Glucose 117 H POC Troponin I 0.01 L 12/31/21 12/31/21 12/31/21 16:44 16:40 16:40 RDW 10.8 L Neut % (Auto) Lymph % (Auto) Lymph # (Auto) POC VBG pCO2 at Temp 64.4 H* POC VBG pO2 100 H POC VBG HCO3 33.3 H POC VBG Total CO2 35.0 H POC Venous O2 Sat 97.0 H POC VBG Base Excess 7.0 H* Sodium 126 L Chloride 88 L Carbon Dioxide 32 H Anion Gap 6.0 L Creatinine 0.5 L Glucose POC Troponin I Meds: Medications Acetaminophen (Acetaminophen 325 Mg Tablet) 650 mg PO Q6HP PRN; Protocol PRN Reason: Per Pain Protocol/Fever > 101 Hydrocodone Bitart/Acetaminophen (Hydrocodone/Apap 10/325mg Tablet) 1 tab PO Q4HP PRN; Protocol PRN Reason: Pain Last Admin: 01/01/22 07:38 Dose: 1 tab Documented by: Albuterol/Ipratropium (Ipratropium/Albuterol 3 Ml Ampul.Neb) 3 ml NEB Q6HRT [facility] Last Admin: 01/01/22 13:04 Dose: 3 ml Documented by: Azithromycin (Azithromycin 250 Mg Tablet) 250 mg PO DAILY KAYA; Protocol Stop: 01/04/22 09:01 Last Admin: 01/01/22 08:56 Dose: 250 mg Documented by: Budesonide (Budesonide 0.5 Mg/2 Ml Ampul.Neb) 0.5 mg NEB Q12 KAYA Last Admin: 01/01/22 07:38 Dose: 0.5 mg Documented by: Ceftriaxone Sodium (Ceftriaxone 1 Gm Vial) 1 gm IV Q24H KAYA; Protocol Last Admin: 01/01/22 08:56 Dose: 1 gm Documented by: Docusate Sodium (Docusate Sodium 100 Mg Capsule) 100 mg PO BID [facility] Last Admin: 01/01/22 07:39 Dose: Not Given Documented by: Enoxaparin Sodium (Enoxaparin 40 Mg/0.4 Ml Syringe) 40 mg SQ DAILY [facility] Last Admin: 01/01/22 07:38 Dose: 40 mg Documented by: Gabapentin (Gabapentin 400 Mg Capsule) 400 mg PO TID [facility] Last Admin: 01/01/22 07:38 Dose: 400 mg Documented by: Lactulose (Lactulose 20 Gm/30 Ml Oral.Emilie) 10 gm PO DAILYP PRN PRN Reason: Constipation Nicotine (Nicotine 14 Mg Patch) 14 mg TOPICAL DAILY@1000 [facility] Last Admin: 01/01/22 11:48 Dose: 14 mg Documented by: Omeprazole (Omeprazole 20 Mg Capsule) 40 mg PO ACB [facility] Last Admin: 01/01/22 07:40 Dose: 40 mg Documented by: Ondansetron HCl (Ondansetron 4 Mg/2 Ml Vial) 4 mg IV Q4HP PRN; Protocol PRN Reason: Nausea And Vomiting Prednisone (Prednisone 20 Mg Tablet) 40 mg PO [facility] Senna (Sennosides 1 Tablet) 2 tab PO HSP PRN PRN Reason: Constipation Sodium Chloride (0.9 % Sodium Chloride 10 Ml Syringe) 10 ml IV Q8 [facility] Last Admin: 01/01/22 05:13 Dose: 10 ml Documented by: A/P Assessment and plan (1) Current smoker: Status: Acute (2) Acute exacerbation of chronic obstructive pulmonary disease (COPD): Status: Acute (3) Acute hypoxemic respiratory failure: Status: Acute (4) Depression: Status: Chronic (5) Chronic pain: Status: Chronic (6) Anxiety disorder: Status: Chronic (7) Alcohol abuse, in remission: Status: Chronic Narrative A/P Narrative: The patient has acute hypoxemic respiratory failure in the setting of COPD exacerbation she continues to smoke. Smoking cessation counseling was provided. Plan of Treatment: At this time, she will be started on duo nebs, and Pulmicort. She received Solu-Medrol 125 mg IV x1. She will be empirically covered with ceftriaxone and Zithromax. In the interim, respiratory panel, COVID-19 PCR, and CT chest angiogram is pending. We will continue supplemental O2 for sat goal greater than 92%. 01/01: The patient is slowly improve however there is slightly better air entry on auscultation bilaterally. Continue duo nebs, Pulmicort, ceftriaxone, and Zithromax. She will be transition to prednisone 40 mg p.o. daily for 5 days. Encourage pulmonary toileting. Of note, she will be transferred out of the ICU to [facility] today Time Spent With Patient Time: Total time spent is greater than 50% in coordination of care (as documented) at patient's floor/unit and/or counseling patient: Total time spent with greater than 50% in coordination of care (as documented) at patient's floor/unit and/or counseling patient:: 25 - 35 minutes QUALITY VTE Deep Vein Thrombosis/Pulmonary Embolism Present on Admission: No
[2022-01-01] MEDS: clonazePAM 1 MG TABLET PO PRN (21:57)
[2022-01-02] MEDS: IPRATROPIUM/ALBUTEROL 3 ML AMPUL.NEB NEB SCH ×5 (01:15→23:54)
[2022-01-02] MEDS: HYDROcodone/APAP 10/325MG TABLET PO PRN ×5 (03:46→23:51)
[2022-01-02] MEDS: 0.9 % SODIUM CHLORIDE 10 ML SYRINGE IV SCH ×3 (05:06→19:59)
[2022-01-02] MEDS: OMEPRAZOLE 20 MG CAPSULE PO SCH (07:33)
[2022-01-02] MEDS: BUDESONIDE 0.5 MG/2 ML AMPUL.NEB NEB SCH ×2 (07:37→19:25)
[2022-01-02] MEDS: cefTRIAXone 1 GM VIAL IV SCH (09:34)
[2022-01-02] MEDS: GABAPENTIN 400 MG CAPSULE PO SCH ×3 (09:34→19:58)
[2022-01-02] MEDS: predniSONE 20 MG TABLET PO SCH (09:34)
[2022-01-02] MEDS: ENOXAPARIN 40 MG/0.4 ML SYRINGE SQ SCH (09:34)
[2022-01-02] MEDS: AZITHROMYCIN 250 MG TABLET PO SCH (09:35)
[2022-01-02] MEDS: DOCUSATE SODIUM 100 MG CAPSULE PO SCH ×2 (09:35→19:58)
[2022-01-02] MEDS: NICOTINE 14 MG PATCH TOPICAL SCH (09:37)
--- NOTE | 2022-01-02 10:25 | Internal Med Progress Note ---
SUBJECTIVE Subjective Patient information: Note initiated : 01/02/22 at 10:21 am Service Date, if different from initiated Date: [] Patient: Dorcas Velasquez 61 y/o F admitted on 12/31/21 for shortness of breath. Chief Complaint: [] Principal diagnosis: Acute COPD exacerbation Interval history: This morning, the patient was complaining of some dizziness. Overall her breathing remained stable. We discussed disposition and she was agreeable to lay staying another day. Constitutional Vitals: Vital Signs Temp Pulse Resp BP Pulse Ox 98.3 F 78 17 116/80 93 01/02/22 08:51 01/02/22 08:51 01/02/22 08:51 01/02/22 08:51 01/02/22 08:51 Period Temp Pulse Resp BP Sys/Robles Pulse Ox Last 24 Hr 97.2 F-98.3 F 70-94 16-20 116-154/70-105 90-98 Intake and Output 01/01/22 01/02/22 01/02/22 21:59 05:59 13:59 Intake Total 1480 840 Output Total 1300 2075 850 Balance -1300 -595 -10 Weight 68.991 kg Intake & Output: Intake & Output 01/01/22 01/02/22 01/02/22 21:59 05:59 13:59 Intake Total 1480 840 Output Total 1300 2075 850 Balance -1300 -595 -10 Weight 68.991 kg Intake: Oral 1480 840 Output: Urine Catheter Amount 1300 2075 850 Other: Meal Breakfast Percent of Meal Consumed 100% Urine Appearance Clear Clear Suprapubic Clear Urine Color Bright Yellow Bright Yellow Suprapubic Bright Yellow Urine Odor Normal # Bowel Movements 0 # of times incontinent of 0 Bowels Head Head exam: Present atraumatic and normal inspection Eye Eye exam: Present normal appearance ENT ENT exam: Present mucous membranes moist, normal exam and normal external ear exam Neck Neck exam: Present normal inspection Respiratory Respiratory exam: Present decreased breath sounds and wheezes; Absent normal respiratory exam Cardiovascular Cardiovascular exam: Present normal rate and rhythm GI/Abdominal GI/Abdominal exam: Present normal bowel sounds Back Exam Back exam: Present normal inspection Neurological Exam Neurological exam: Present alert and oriented X3 Skin Skin exam: Present intact and warm OBJ DATA Labs CBC & Chem 7: 01/01/22 05:15 01/01/22 05:15 Labs: Abnormal Lab Results 01/01/22 01/01/22 12/31/21 05:15 05:15 16:46 RDW 10.6 L Neut % (Auto) 84.0 H Lymph % (Auto) 13.7 L Lymph # (Auto) 0.67 L POC VBG pCO2 at Temp POC VBG pO2 POC VBG HCO3 POC VBG Total CO2 POC Venous O2 Sat POC VBG Base Excess Sodium 125 L Chloride 86 L Carbon Dioxide Anion Gap Creatinine 0.4 L Glucose 117 H POC Troponin I 0.01 L 12/31/21 12/31/21 12/31/21 16:44 16:40 16:40 RDW 10.8 L Neut % (Auto) Lymph % (Auto) Lymph # (Auto) POC VBG pCO2 at Temp 64.4 H* POC VBG pO2 100 H POC VBG HCO3 33.3 H POC VBG Total CO2 35.0 H POC Venous O2 Sat 97.0 H POC VBG Base Excess 7.0 H* Sodium 126 L Chloride 88 L Carbon Dioxide 32 H Anion Gap 6.0 L Creatinine 0.5 L Glucose POC Troponin I Meds: Medications Acetaminophen (Acetaminophen 325 Mg Tablet) 650 mg PO Q6HP PRN; Protocol PRN Reason: Per Pain Protocol/Fever > 101 Hydrocodone Bitart/Acetaminophen (Hydrocodone/Apap 10/325mg Tablet) 1 tab PO Q4HP PRN; Protocol PRN Reason: Pain Last Admin: 01/02/22 07:25 Dose: 1 tab Documented by: Albuterol/Ipratropium (Ipratropium/Albuterol 3 Ml Ampul.Neb) 3 ml NEB Q6HRT KAYA Last Admin: 01/02/22 07:37 Dose: 3 ml Documented by: Azithromycin (Azithromycin 250 Mg Tablet) 250 mg PO DAILY KAYA; Protocol Stop: 01/04/22 09:01 Last Admin: 01/02/22 09:35 Dose: 250 mg Documented by: Budesonide (Budesonide 0.5 Mg/2 Ml Ampul.Neb) 0.5 mg NEB Q12 KAYA Last Admin: 01/02/22 07:37 Dose: 0.5 mg Documented by: Ceftriaxone Sodium (Ceftriaxone 1 Gm Vial) 1 gm IV Q24H KAYA; Protocol Last Admin: 01/02/22 09:34 Dose: 1 gm Documented by: Clonazepam (Clonazepam 1 Mg Tablet) 1 mg PO TIDP PRN PRN Reason: Anxiety Last Admin: 01/01/22 21:57 Dose: 1 mg Documented by: Docusate Sodium (Docusate Sodium 100 Mg Capsule) 100 mg PO BID [facility] Last Admin: 01/02/22 09:35 Dose: 100 mg Documented by: Enoxaparin Sodium (Enoxaparin 40 Mg/0.4 Ml Syringe) 40 mg SQ DAILY [facility] Last Admin: 01/02/22 09:34 Dose: 40 mg Documented by: Gabapentin (Gabapentin 400 Mg Capsule) 400 mg PO TID [facility] Last Admin: 01/02/22 09:34 Dose: 400 mg Documented by: Sodium Chloride (Sodium Chloride 0.9%) 1,000 mls @ 75 mls/hr IV .[id number] [facility] Lactulose (Lactulose 20 Gm/30 Ml Oral.Emilie) 10 gm PO DAILYP PRN PRN Reason: Constipation Nicotine (Nicotine 14 Mg Patch) 14 mg TOPICAL DAILY@1000 [facility] Last Admin: 01/02/22 09:37 Dose: 14 mg Documented by: Omeprazole (Omeprazole 20 Mg Capsule) 40 mg PO ACB [facility] Last Admin: 01/02/22 07:33 Dose: 40 mg Documented by: Ondansetron HCl (Ondansetron 4 Mg/2 Ml Vial) 4 mg IV Q4HP PRN; Protocol PRN Reason: Nausea And Vomiting Prednisone (Prednisone 20 Mg Tablet) 40 mg PO QAMCC [facility] Last Admin: 01/02/22 09:34 Dose: 40 mg Documented by: Senna (Sennosides 1 Tablet) 2 tab PO HSP PRN PRN Reason: Constipation Sodium Chloride (0.9 % Sodium Chloride 10 Ml Syringe) 10 ml IV Q8 [facility] Last Admin: 01/02/22 05:06 Dose: Not Given Documented by: A/P Assessment and plan (1) Current smoker: Status: Acute (2) Acute exacerbation of chronic obstructive pulmonary disease (COPD): Status: Acute (3) Acute hypoxemic respiratory failure: Status: Acute (4) Depression: Status: Chronic (5) Chronic pain: Status: Chronic (6) Anxiety disorder: Status: Chronic (7) Alcohol abuse, in remission: Status: Chronic (8) Hyponatremia: Status: Acute Narrative A/P Narrative: The patient has acute hypoxemic respiratory failure in the setting of COPD exacerbation she continues to smoke. Smoking cessation counseling was provided. Plan of Treatment: At this time, she will be started on duo nebs, and Pulmicort. She received Solu-Medrol 125 mg IV x1. She will be empirically covered with ceftriaxone and Zithromax. In the interim, respiratory panel, COVID-19 PCR, and CT chest angiogram is pending. We will continue supplemental O2 for sat goal greater than 92%. 01/01: The patient is slowly improve however there is slightly better air entry on auscultation bilaterally. Continue duo nebs, Pulmicort, ceftriaxone, and Zithromax. She will be transition to prednisone 40 mg p.o. daily for 5 days. Encourage pulmonary toileting. Of note, she will be transferred out of the ICU to [facility] today 01/02: We will continue her respiratory regimen as above. She is very slow to improve. There is concerns for poor p.o. intake and she is experiencing likely some orthostatic hypotension and will start NS 75 cc an hour. We will repeat her BMP tomorrow morning as her sodium most recently has been trending down towards 125. Time Spent With Patient Time: Total time spent is greater than 50% in coordination of care (as documented) at patient's floor/unit and/or counseling patient: Total time spent with greater than 50% in coordination of care (as documented) at patient's floor/unit and/or counseling patient:: 25 - 35 minutes QUALITY VTE Deep Vein Thrombosis/Pulmonary Embolism Present on Admission: No
[2022-01-02] MEDS: 0.9 % SODIUM CHLORIDE 1,000 ML IV SCH ×2 (10:53→23:51)
[2022-01-02] MEDS: MAG HYDROX/AL HYDROX/SIMETH 30 ML ORAL.SUSP PO PRN ×2 (11:05→19:11)
--- NOTE | 2022-01-02 12:33 | EKG ---
[facility] Test Date: 2021-12-31 Pat Name: Dorcas Velasquez Department: ED Room: Gender: Female Manager Cost: : 1960 Requested By: Walter Conway Order Number: [id number] Reading MD: Andrews Solano Measurements Intervals [place] Rate: 102 P: 85 HI: 133 QRS: 123 QRSD: 102 T: 64 QT: 325 QTc: 424 Interpretive Statements Sinus tachycardia Right atrial enlargement Electronically Signed On 01-02-2022 12:33:12 PDT by Andrews Solano /store/[email or web address]/[id number]/[id number]
[2022-01-02] MEDS: clonazePAM 1 MG TABLET PO PRN (13:58)
[2022-01-02] MEDS ORDERED: BISACODYL 10 MG SUPP.RECT PR PRN (15:21)
[2022-01-02] MEDS ORDERED: MAGNESIUM HYDROXIDE 30 ML ORAL.SUSP PO PRN (15:21)
[2022-01-02] MEDS ORDERED: MINERAL OIL 1 DOSE ENEMA PR PRN (15:22)
[2022-01-03] MEDS: 0.9 % SODIUM CHLORIDE 10 ML SYRINGE IV SCH ×3 (04:07→20:43)
[2022-01-03] MEDS: OMEPRAZOLE 20 MG CAPSULE PO SCH (07:20)
[2022-01-03] MEDS: HYDROcodone/APAP 10/325MG TABLET PO PRN ×4 (07:21→19:46)
[2022-01-03] MEDS: BUDESONIDE 0.5 MG/2 ML AMPUL.NEB NEB SCH ×2 (07:41→19:15)
[2022-01-03] MEDS: IPRATROPIUM/ALBUTEROL 3 ML AMPUL.NEB NEB SCH ×3 (07:41→19:15)
[2022-01-03 07:48] LABS: Blood Urea Nitrogen 10 mg/dL (8-23); Calcium 8.6 mg/dL (8.6-10.4); Carbon Dioxide 30 mmol/L (22-30); Chloride 93 mmol/L (96-108); Glomerular Filtration Rate 111; Glucose 67 mg/dL (70-105)
[2022-01-03] MEDS: ENOXAPARIN 40 MG/0.4 ML SYRINGE SQ SCH (08:54)
[2022-01-03] MEDS: GABAPENTIN 400 MG CAPSULE PO SCH ×3 (08:54→20:43)
[2022-01-03] MEDS: AZITHROMYCIN 250 MG TABLET PO SCH (08:54)
[2022-01-03] MEDS: DOCUSATE SODIUM 100 MG CAPSULE PO SCH ×2 (08:54→20:43)
[2022-01-03] MEDS: predniSONE 20 MG TABLET PO SCH (08:54)
[2022-01-03] MEDS: NICOTINE 14 MG PATCH TOPICAL SCH (09:06)
[2022-01-03] MEDS: cefTRIAXone 1 GM VIAL IV SCH (09:08)
--- NOTE | 2022-01-03 13:40 | Internal Med Progress Note ---
SUBJECTIVE Subjective Patient information: Note initiated : 01/03/22 at 1:38 pm Service Date, if different from initiated Date: [] Patient: Dorcas Velasquez 61 y/o F admitted on 12/31/21 for shortness of breath. Chief Complaint: [SOB] Principal diagnosis: Acute COPD exacerbation Interval history: The patient was resting comfortably in bed. She states that her dizziness had improved. We discussed plan of care and disposition. She also showed me how she was doing with the incentive spirometer. She got up to 1999. The patient prefers to discharge home tomorrow. Constitutional Vitals: Vital Signs Temp Pulse Resp BP Pulse Ox 97.1 F 96 H 20 132/83 92 01/03/22 11:00 01/03/22 13:28 01/03/22 13:28 01/03/22 11:00 01/03/22 13:28 Period Temp Pulse Resp BP Sys/Robles Pulse Ox Last 24 Hr 97.1 F-98.6 F 85-102 16-20 132-177/83-96 92-100 Intake and Output 01/02/22 01/03/22 01/03/22 21:59 05:59 13:59 Intake Total 400 1933 450 Output Total 3150 2325 2024 Balance -2753 -392 -1575 Weight 70.307 kg Intake & Output: Intake & Output 01/02/22 01/03/22 01/03/22 21:59 05:59 13:59 Intake Total 400 1933 450 Output Total 3150 2325 5 Balance -2750 -392 -1575 Weight 70.307 kg Intake: IV 973 Sodium Chloride 0.9% 1,000 ml @ 973 75 mls/hr IV .[id number] [facility] Rx#: [id number] Oral 400 960 450 Output: Urine Catheter Amount 3150 1375 2024 Void Amount 950 Other: Meal Lunch Percent of Meal Consumed 100% Feeding Ability Independent Urine Appearance Clear Clear Clear Suprapubic Clear Urine Color Pale Pale Dark Yellow Suprapubic Bright Yellow Urine Odor Normal Normal Stool Size Copious Stool Color Brown Stool Consistency Soft Formed Head Head exam: Present atraumatic and normal inspection Eye Eye exam: Present normal appearance ENT ENT exam: Present mucous membranes moist, normal exam and normal external ear exam Neck Neck exam: Present normal inspection Respiratory Respiratory exam: Present decreased breath sounds and wheezes; Absent normal respiratory exam Cardiovascular Cardiovascular exam: Present normal rate and rhythm GI/Abdominal GI/Abdominal exam: Present normal bowel sounds Back Exam Back exam: Present normal inspection Neurological Exam Neurological exam: Present alert and oriented X3 Skin Skin exam: Present intact and warm OBJ DATA Labs CBC & Chem 7: 01/01/22 05:15 01/03/22 05:20 Labs: Abnormal Lab Results 01/03/22 01/01/22 01/01/22 05:20 05:15 05:15 RDW 10.6 L Neut % (Auto) 84.0 H Lymph % (Auto) 13.7 L Lymph # (Auto) 0.67 L POC VBG pCO2 at Temp POC VBG pO2 POC VBG HCO3 POC VBG Total CO2 POC Venous O2 Sat POC VBG Base Excess Sodium 125 L Chloride 93 L 86 L Carbon Dioxide Anion Gap Creatinine 0.4 L 0.4 L Glucose 67 L 117 H POC Troponin I 12/31/21 12/31/21 12/31/21 16:46 16:44 16:40 RDW Neut % (Auto) Lymph % (Auto) Lymph # (Auto) POC VBG pCO2 at Temp 64.4 H* POC VBG pO2 100 H POC VBG HCO3 33.3 H POC VBG Total CO2 35.0 H POC Venous O2 Sat 97.0 H POC VBG Base Excess 7.0 H* Sodium 126 L Chloride 88 L Carbon Dioxide 32 H Anion Gap 6.0 L Creatinine 0.5 L Glucose POC Troponin I 0.01 L 12/31/21 16:40 RDW 10.8 L Neut % (Auto) Lymph % (Auto) Lymph # (Auto) POC VBG pCO2 at Temp POC VBG pO2 POC VBG HCO3 POC VBG Total CO2 POC Venous O2 Sat POC VBG Base Excess Sodium Chloride Carbon Dioxide Anion Gap Creatinine Glucose POC Troponin I Meds: Medications Acetaminophen (Acetaminophen 325 Mg Tablet) 650 mg PO Q6HP PRN; Protocol PRN Reason: Per Pain Protocol/Fever > 101 Hydrocodone Bitart/Acetaminophen (Hydrocodone/Apap 10/325mg Tablet) 1 tab PO Q4HP PRN; Protocol PRN Reason: Pain Last Admin: 01/03/22 11:35 Dose: 1 tab Documented by: Al Hydrox/Mg Hydrox/Simethicone (Mag Hydrox/Al Hydrox/Simeth 30 Ml Oral.Susp) 30 ml PO Q4-6HP PRN PRN Reason: Dyspepsia Last Admin: 01/02/22 11:05 Dose: 30 ml Documented by: Albuterol/Ipratropium (Ipratropium/Albuterol 3 Ml Ampul.Neb) 3 ml NEB Q6HRT [facility] Last Admin: 01/03/22 13:25 Dose: 3 ml Documented by: Azithromycin (Azithromycin 250 Mg Tablet) 250 mg PO DAILY [facility]; Protocol Stop: 01/04/22 09:01 Last Admin: 01/03/22 08:54 Dose: 250 mg Documented by: Bisacodyl (Bisacodyl 10 Mg Supp.Rect) 10 mg DE DAILYP PRN PRN Reason: Constipation Budesonide (Budesonide 0.5 Mg/2 Ml Ampul.Neb) 0.5 mg NEB Q12 [facility] Last Admin: 01/03/22 07:41 Dose: 0.5 mg Documented by: Ceftriaxone Sodium (Ceftriaxone 1 Gm Vial) 1 gm IV Q24H [facility]; Protocol Last Admin: 01/03/22 09:08 Dose: 1 gm Documented by: Clonazepam (Clonazepam 1 Mg Tablet) 1 mg PO TIDP PRN PRN Reason: Anxiety Last Admin: 01/02/22 13:58 Dose: 1 mg Documented by: Docusate Sodium (Docusate Sodium 100 Mg Capsule) 100 mg PO BID [facility] Last Admin: 01/03/22 08:54 Dose: 100 mg Documented by: Enoxaparin Sodium (Enoxaparin 40 Mg/0.4 Ml Syringe) 40 mg SQ DAILY [facility] Last Admin: 01/03/22 08:54 Dose: 40 mg Documented by: Gabapentin (Gabapentin 400 Mg Capsule) 400 mg PO TID [facility] Last Admin: 01/03/22 08:54 Dose: 400 mg Documented by: Sodium Chloride (Sodium Chloride 0.9%) 1,000 mls @ 75 mls/hr IV .[id number] [facility] Last Admin: 01/02/22 23:51 Dose: 75 mls/hr Documented by: Lactulose (Lactulose 20 Gm/30 Ml Oral.Emilie) 10 gm PO DAILYP PRN PRN Reason: Constipation Magnesium Hydroxide (Magnesium Hydroxide 30 Ml Oral.Susp) 30 ml PO DAILYP PRN PRN Reason: Constipation Mineral Oil (Mineral Oil 1 Dose Enema) 1 dose DE DAILYP PRN PRN Reason: Constipation Stop: 01/12/22 15:21 Nicotine (Nicotine 14 Mg Patch) 14 mg TOPICAL DAILY@1000 [facility] Last Admin: 01/03/22 09:06 Dose: 14 mg Documented by: Omeprazole (Omeprazole 20 Mg Capsule) 40 mg PO ACB [facility] Last Admin: 01/03/22 07:20 Dose: 40 mg Documented by: Ondansetron HCl (Ondansetron 4 Mg/2 Ml Vial) 4 mg IV Q4HP PRN; Protocol PRN Reason: Nausea And Vomiting Prednisone (Prednisone 20 Mg Tablet) [facility] Last Admin: 01/03/22 08:54 Dose: 40 mg Documented by: Senna (Sennosides 1 Tablet) 2 tab PO HSP PRN PRN Reason: Constipation Sodium Chloride (0.9 % Sodium Chloride 10 Ml Syringe) 10 ml IV Q8 [facility] Last Admin: 01/03/22 04:07 Dose: Not Given Documented by: A/P Narrative Plan of Treatment: At this time, she will be started on duo nebs, and Pulmicort. She received Solu-Medrol 125 mg IV x1. She will be empirically covered with ceftriaxone and Zithromax. In the interim, respiratory panel, COVID-19 PCR, and CT chest angiogram is pending. We will continue supplemental O2 for sat goal greater than 92%. 01/01: The patient is slowly improve however there is slightly better air entry on auscultation bilaterally. Continue duo nebs, Pulmicort, ceftriaxone, and Zithromax. She will be transition to prednisone 40 mg p.o. daily for 5 days. Encourage pulmonary toileting. Of note, she will be transferred out of the ICU to [facility] today 01/02: We will continue her respiratory regimen as above. She is very slow to improve. There is concerns for poor p.o. intake and she is experiencing likely some orthostatic hypotension and will start NS 75 cc an hour. We will repeat her BMP tomorrow morning as her sodium most recently has been trending down towards 125. 01/03: Continue to encourage use of incentive spirometry. There is improved air entry on auscultation as there is wheezing noted. The patient will require home O2 eval prior to discharge. Of note, her sodium has improved to 134 with IV fluid resuscitation. She will likely discharge home tomorrow morning. Time Spent With Patient Time: Total time spent is greater than 50% in coordination of care (as documented) at patient's floor/unit and/or counseling patient: Total time spent with greater than 50% in coordination of care (as documented) at patient's floor/unit and/or counseling patient:: 25 - 35 minutes QUALITY VTE Deep Vein Thrombosis/Pulmonary Embolism Present on Admission: No
[2022-01-03] MEDS: 0.9 % SODIUM CHLORIDE 1,000 ML IV SCH (13:54)
--- NOTE | 2022-01-03 14:03 | Discharge Summary ---
Discharge Provider Provider IMPORTANT FOLLOW-UP INFORMATION FOR PCP: Patient information: Note initiated : 01/03/22 at 2:03 pm Service Date, if different from initiated Date: [] Patient: Dorcas Velasquez 61 y/o F admitted on 12/31/21 for shortness of breath. Chief Complaint: [] Date of admission: 12/31/21 19:43 Primary care physician: GIORGI Lopez Consults: 12/31/21 Consult to Physician [CONS] Stat Comment: Consulting Provider: Doc Wong Reason For Exam: Physician to Consult COURSE Time Spent with Patient Time attestation: Total time spent providing and/or coordinating discharge services: EXAM Constitutional Vitals: Temp Pulse Resp BP Pulse Ox 97.1 F 96 H 20 132/83 92 01/03/22 11:00 01/03/22 13:28 01/03/22 13:28 01/03/22 11:00 01/03/22 13:28 Discharge Data Data Completed and Pending Labs on day of discharge: Labs from last 24 hours 01/03/22 05:20 Sodium 134 Potassium 3.8 Chloride 93 L Carbon Dioxide 30 Anion Gap 11.0 BUN 10 Creatinine 0.4 L GFR Calculation 111 Glucose 67 L Calcium 8.6 Discharge Plan Patient/Caregiver Discharge Instructions Activity: increase activity as tolerated Diet: Consistent Carbohydrate Instructions: Diabetic Gastroparesis (DC) Prescriptions: Continued fluticasone propionate 50 mcg/actuation spray,suspension 1 spray INTRANASAL PRN 0RF Rx Instructions: administer into each nostril omeprazole 40 mg capsule,delayed release(DR/EC) 40 mg PO QDAY 0RF albuterol sulfate [ProAir HFA] 90 mcg/actuation HFA aerosol inhaler 2 puff INHALATION Q2-4HP PRN (Reason: Respiratory Distress) 0RF hydrocodone-acetaminophen [[place]] 10-325 mg tablet 1 tab PO Q4H PRN (Reason: Pain) 0RF guaifenesin 400 mg tablet 400 mg PO .q6 hours PRN (Reason: congestion) Qty: 30 0RF cyclobenzaprine 10 mg tablet 1 tab PO HS 0RF tizanidine 4 mg tablet 1 tab PO TID 0RF clonazepam 1 mg tablet 1 tab PO TID PRN (Reason: Pain) 0RF gabapentin 400 mg Capsule 400 mg PO TID 0RF Follow Up Plan Follow up with: Garland Cadena ARNP [Primary Care Provider] - Patient Disposition: Home, Self-Care Rehab Potential: Good I certify that the patient requires SNF services: No Overall status at discharge: patient is progressing back to baseline QUALITY VTE Deep Vein Thrombosis/Pulmonary Embolism Present on Admission: No
[2022-01-04] MEDS: IPRATROPIUM/ALBUTEROL 3 ML AMPUL.NEB NEB SCH ×3 (01:01→13:15)
[2022-01-04] MEDS: HYDROcodone/APAP 10/325MG TABLET PO PRN ×2 (01:13→05:16)
[2022-01-04] MEDS: 0.9 % SODIUM CHLORIDE 1,000 ML IV SCH (03:34)
[2022-01-04] MEDS: clonazePAM 1 MG TABLET PO PRN ×2 (03:35→08:38)
[2022-01-04] MEDS: 0.9 % SODIUM CHLORIDE 10 ML SYRINGE IV SCH ×2 (05:01→13:07)
[2022-01-04] MEDS: OMEPRAZOLE 20 MG CAPSULE PO SCH (07:08)
[2022-01-04] MEDS: BUDESONIDE 0.5 MG/2 ML AMPUL.NEB NEB SCH (07:47)
[2022-01-04] MEDS: AZITHROMYCIN 250 MG TABLET PO SCH (08:28)
[2022-01-04] MEDS: GABAPENTIN 400 MG CAPSULE PO SCH (08:29)
[2022-01-04] MEDS: ENOXAPARIN 40 MG/0.4 ML SYRINGE SQ SCH (08:29)
[2022-01-04] MEDS: DOCUSATE SODIUM 100 MG CAPSULE PO SCH (08:29)
[2022-01-04] MEDS: predniSONE 20 MG TABLET PO SCH (08:29)
[2022-01-04] MEDS: cefTRIAXone 1 GM VIAL IV SCH (08:38)
[2022-01-04] MEDS: NICOTINE 14 MG PATCH TOPICAL SCH (08:38)
--- NOTE | 2022-01-04 10:07 | Discharge Summary ---
Discharge Provider Provider IMPORTANT FOLLOW-UP INFORMATION FOR PCP: 1. Referral to Pulmonology 2. PFTs 3. Repeat home O2 eval in 1 months' time. Patient information: Note initiated : 01/04/22 at 10:05 am Service Date, if different from initiated Date: [] Patient: Dorcas Velasquez 61 y/o F admitted on 12/31/21 for shortness of breath. Chief Complaint: [SOB] Date of admission: 12/31/21 19:43 Discharge date: 01/04/22 Primary care physician: GIORGI Lopez Admitting clinician: Doc Wong Consults: 12/31/21 Consult to Physician [CONS] Stat Comment: Consulting Provider: Doc Wong Reason For Exam: Physician to Consult Attending physician on discharge: Doc Wong COURSE Hospital Course Hospital course: Ms. Velasquez is a 61 year old F smoker with a past medical history significant for COPD, chronic pain syndrome, and anxiety/depression who presents to the hospital with 1 day onset of progressive dyspnea. She states that she has had chronic respiratory issues in the past and is presented to the hospital several times but unfortunately continues to smoke 1 to 5 cigarettes daily. She denied a productive cough, fevers or chills. She denies any sick contacts. In terms of COVID-19, she is only received 1 vaccine and she is not interested in further vaccinations. She states that her rapid COVID-19 was negative. On arrival to the ER, she was hemodynamically tenuous and afebrile. Her O2 sat was in the 60s to 70s. She was placed on supplemental O2 and her O2 recovered quite quickly. The patient's chest x-ray revealed no acute abnormality. The hospitalist service was asked admit the patient for further management and evaluation of her acute hypoxemic respiratory failure in the setting of COPD exacerbation. Plan of Treatment: At this time, she will be started on duo nebs, and Pulmicort. She received Solu-Medrol 125 mg IV x1. She will be empirically covered with ceftriaxone and Zithromax. In the interim, respiratory panel, COVID-19 PCR, and CT chest angiogram is pending. We will continue supplemental O2 for sat goal greater than 92%. 01/01: The patient is slowly improve however there is slightly better air entry on auscultation bilaterally. Continue duo nebs, Pulmicort, ceftriaxone, and Zithromax. She will be transition to prednisone 40 mg p.o. daily for 5 days. Encourage pulmonary toileting. Of note, she will be transferred out of the ICU to [facility] today 01/02: We will continue her respiratory regimen as above. She is very slow to improve. There is concerns for poor p.o. intake and she is experiencing likely some orthostatic hypotension and will start NS 75 cc an hour. We will repeat her BMP tomorrow morning as her sodium most recently has been trending down t owards 125. 01/03: Continue to encourage use of incentive spirometry. There is improved air entry on auscultation as there is wheezing noted. The patient will require home O2 eval prior to discharge. Of note, her sodium has improved to 134 with IV fluid resuscitation. She will likely discharge home tomorrow morning. 01/04: The patient is doing much better. She will complete a total of 5 days of prednisone and 5 days of Zithromax. She has 1 day remaining of each. She will be discharged on Advair and continue home albuterol. She will be prescribed nicotine patches. She will require supplemental O2 upon discharge. She should follow-up with pulmonary in an outpatient setting. She should have a baseline set of PFTs. She will need a repeat home O2 eval in approximately 4 to 6 weeks time. She should follow-up with her primary care physician in 1 week's time. Discharge plan was discussed and she was in agreement. Discharge diagnosis: Acute hypoxemic respiratory failure, acute exacerbation of COPD Time spent discussing smoking cessation with patient: 3 to 10 minutes Time Spent with Patient Time attestation: Total time spent providing and/or coordinating discharge services: Time spent: Greater than 30 minutes EXAM Constitutional Vitals: Temp Pulse Resp BP Pulse Ox 97.6 F 87 16 134/82 98 01/04/22 06:57 01/04/22 08:13 01/04/22 08:13 01/04/22 06:57 01/04/22 06:57 General appearance: average body habitus Head Head exam: Present atraumatic, normal inspection and normocephalic Eye Eye exam: Present EOMI, normal appearance and PERRL; Absent conjunctival inj ection ENT ENT exam: Present normal exam; Absent mucous membranes dry Neck Neck exam: Present full ROM; Absent lymphadenopathy Respiratory Respiratory exam: Present decreased breath sounds, prolonged expiratory phase and wheezes; Absent normal respiratory exam, CTAB or respiratory distress Cardiovascular Cardiovascular exam: Present normal rate and rhythm and RRR; Absent JVD GI/Abdominal GI/Abdominal exam: Present normal bowel sounds and soft; Absent diminished bowel sounds, distended, guarding, mass, rebound or tenderness Neurological Exam Neurological exam: Present alert, CN II-XII intact and oriented X3 Psychiatric Psychiatric exam: Present normal affect and normal mood Skin Skin exam: Present intact and warm; Absent erythema, pallor, petechiae or rash Discharge Plan Patient/Caregiver Discharge Instructions Activity: increase activity as tolerated Diet: Regular Diet Instructions: Using Oxygen at Home (DC), COPD (Chronic Obstructive Pulmonary Disease) (DC), Bronchospasm (GEN), Chronic Lung Disease and Infection Prevention (DC) Prescriptions: New nicotine 14 mg/24 hr Patch 24 Hour 14 mg topical DAILY@1000 Qty: 28 0RF prednisone 20 mg Table[facility] [place] [facility] 2 0RF gabapentin 400 mg Capsule 400 mg PO TID Qty: 90 0RF azithromycin [Zithromax] 250 mg tablet 250 mg PO QDAY 1 Days Qty: 1 0RF Rx Instructions: start on day 2 of therapy fluticasone propion-salmeterol [Advair Diskus] 250-50 mcg/dose blister with device 1 inh inhalation BID Qty: 60 0RF Continued fluticasone propionate 50 mcg/actuation spray,suspension 1 spray INTRANASAL PRN 0RF Rx Instructions: administer into each nostril omeprazole 40 mg capsule,delayed release(DR/EC) 40 mg PO QDAY 0RF albuterol sulfate [ProAir HFA] 90 mcg/actuation HFA aerosol inhaler 2 puff INHALATION Q2-4HP PRN (Reason: Respiratory Distress) 0RF hydrocodone-acetaminophen [[place]] 10-325 mg tablet 1 tab PO Q4H PRN (Reason: Pain) 0RF guaifenesin 400 mg tablet 400 mg PO .q6 hours PRN (Reason: congestion) Qty: 30 0RF cyclobenzaprine 10 mg tablet 1 tab PO HS 0RF tizanidine 4 mg tablet 1 tab PO TID 0RF clonazepam 1 mg tablet 1 tab PO TID PRN (Reason: Pain) 0RF gabapentin 400 mg Capsule 400 mg PO TID 0RF Other Ambulatory Orders: Home Oxygen Order (Routine) Location: None Selected Ordered By: Doc Wong Follow Up Plan Follow up with: Garland Cadena ARNP [Primary Care Provider] - Patient Disposition: Home, Self-Care Prognosis: Good Rehab Potential: Good I certify that the patient requires SNF services: No Overall status at discharge: patient is progressing back to baseline Discharge Orders: Discharge Order (Routine); Ordered 01/04/22 Ordered By: Doc Wong QUALITY VTE Deep Vein Thrombosis/Pulmonary Embolism Present on Admission: No
== END 2022-01-04 13:56 | disposition home or self-care (01) | DRG 190 ==
LOC: ED 16:18 → ICU 19:43 → MEDSUR 01-01 17:56
PROVIDERS: ADMIT Student in an Organized Health Care Education/Training Program; ATTEND Student in an Organized Health Care Education/Training Program

== ENCOUNTER 2022-02-02 23:04 | Inpatient (IN) ==
[2022-02-02] MEDS ORDERED: 0.9 % SODIUM CHLORIDE 1,000 ML IV ONE (23:13)
--- NOTE | 2022-02-02 23:22 | Emergency Department Note ---
Altered Mental Status HPI General Chief Complaint: Altered Mental Status Stated Complaint: confused Time Seen by Provider: 02/02/22 23:13 Source: patient and EMS Mode of arrival: wheelchair Limitations: no limitations History of Present Illness HPI Narrative: Narrative: Patient presents to ED via EMS with family concerns of altered mental status. Family states that she has not been acting right. He states that she is a little sluggish. Patient reports back pain that she rates 6/10. She has a suprapubic catheter in and she does have a history of frequent UTIs. Patient states she is felt feverish. She denies chills, nausea, vomiting, abdominal pain, diarrhea, cardiac chest pain, heart palpitations, shortness of breath, cough, sputum production. She denies [id number] medication. Denies any other alleviating or aggravating factors. Related Data Home Medications Medication Instructions Recorded Confirmed albuterol sulfate 90 mcg/actuation 2 puff inhalation Q2-4HP PRN 04/03/20 01/29/22 aerosol inhaler (ProAir HFA) Respiratory Distress fluticasone propionate 50 1 spray intranasal PRN 04/03/20 01/29/22 mcg/actuation nasal spray,suspension hydrocodone 10 mg-acetaminophen 1 tab PO Q4H PRN Pain 04/03/20 01/29/22 325 mg tablet ([place]) omeprazole 40 mg capsule,delayed 40 mg PO QDAY 04/03/20 01/29/22 release clonazepam 1 mg tablet 1 tab PO TID PRN Pain 12/31/21 01/29/22 cyclobenzaprine 10 mg tablet 1 tab PO HS 12/31/21 01/29/22 gabapentin 400 mg capsule 400 mg PO TID 12/31/21 01/29/22 tizanidine 4 mg tablet 1 tab PO TID 12/31/21 01/29/22 Previous Rx's Medication Instructions Recorded guaifenesin 400 mg tablet 400 mg PO .q6 hours PRN congestion 07/09/18 #30 tabs fluticasone 250 mcg-salmeterol 50 1 inh inhalation BID #60 ea 01/04/22 mcg/dose blistr powdr for inhalation (Advair Diskus) gabapentin 400 mg capsule 400 mg PO TID #90 caps 01/04/22 nicotine 14 mg/24 hr daily 14 mg topical DAILY@1000 #28 ea 01/04/22 transdermal patch prednisone 20 mg tablet 40 mg PO [facility] #2 tabs 01/04/22 Allergies Allergy/AdvReac Type Severity Reaction Status Date / Time Sulfa (Sulfonamide Allergy Mild Rash Verified 01/29/22 15:57 Antibiotics) codeine AdvReac Mild Headache Verified 01/29/22 15:57 methylprednisolone AdvReac Mild Nausea Verified 01/29/22 15:57 Review of Systems ROS ROS Narrative: Narrative: All systems ED: reviewed and negative except as stated. 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) Low back pain (Chronic) Menopausal syndrome (Chronic 04/18/13) Migraine (Chronic) Osteoporosis (Chronic 06/15/13) Peripheral neuropathy (Chronic 09/12/13) Psoriasis (Chronic) Allergic rhinitis (Chronic) Vitamin B 12 deficiency (Chronic 09/12/13) Hypertension (Chronic) Spasm of back muscles (Chronic) Vitamin D deficiency (Chronic) Hypomagnesemia (Chronic) Muscle cramps (Chronic) Lumbar back pain with radiculopathy affecting left lower extremity (Chronic) Abnormal weight loss (Acute) Neurogenic bladder (Chronic) Ovarian mass (Chronic) Acute retention of urine (Chronic) Degenerative disc disease (Chronic) Chronic pain syndrome (Chronic) History of surgery (Chronic ~2011) History of mandibular surgery (Acute) Chronic suprapubic catheter (Acute) Suprapubic catheter dysfunction (Acute) Encounter for suprapubic catheter care (Acute) Current smoker (Acute) Acute exacerbation of chronic obstructive pulmonary disease (COPD) (Acute) Acute hypoxemic respiratory failure (Acute) Asthma exacerbation (Acute) Hyponatremia (Acute) Acute hypokalemia (Acute) AMS (altered mental status) (Acute) Hardness of breast (Acute) UTI (urinary tract infection) (Acute) Medical History (Updated 02/03/22 @ 01:38 by Mark Mae DO) Acute retention of urine Alcohol abuse, in remission Allergic rhinitis Anemia Angioedema (09/19/14) Anxiety disorder Arthropathy Asthma Breast pain (04/18/13) Capsular contracture of breast implant (04/18/13) Chronic pain Chronic pain syndrome Degenerative disc disease Depression Edema Encounter for routine gynecological examination (04/18/13) Family history of diabetes mellitus (03/16/13) Fatigue Gastric ulcer, chronic (08/23/11) [facility] Dr. 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 Spasm of back muscles Thrombosis/embolism, venous Tobacco abuse (12/14/13) still smoking advised to quit, counselled for 5 mins UTI (urinary tract infection) Vitamin B 12 deficiency (09/12/13) on 1,000mcg daily check b12 levels Vitamin D deficiency Surgical History History of breast augmentation (~1987) bilateral implants, with intracapsular leaks, but not extracapsular. History of colonoscopy done in jul 2011, while patient was inpatient for GI bleed. as per note in system, no abnormalities detected History of esophagogastroduodenoscopy (08/23/11) [facility] Dr. Cooper did an exploratory laparotomy with enterotomy and oversew of bleeding duodenal ulcer converted to Bilroth II partial gastric resection with gastrojejunostomy History of mandibular surgery History of surgery (~2011) Perforated ulcer; partial pancreas, partial liver, partial small intestine and partial stomach removal Family History Brother Alcohol abuse Grandfather Alcohol abuse Maternal Uncle Alcohol abuse Mother Alzheimer's disease Type 2 diabetes mellitus Manic affective disorder, recurrent episode, unspecified degree Diabetes mellitus Unknown No problems noted. Father Cardiac disease Malignant neoplasm of pancreas May have had but does not know details Schizophrenia Social History Smoking Status: Current every day smoker Alcohol Intake Frequency: does not drink Substance Use: marijuana Exam Narrative Narrative: Narrative: General Limitations: no limitations General appearance: Present alert Head Head: Present atraumatic and normocephalic Eye Eye: Present PERRL and EOMI ENT ENT: Present normal exam and normal oropharynx Neck Neck: Present normal inspection and full ROM; Absent meningismus Chest Chest: Present other (Breast are rockhard with no erythema or tenderness to palpation) Respiratory Respiratory: Present normal lung sounds bilaterally and other (Tachypnea); Absent respiratory distress, wheezes or stridor Cardiovascular Cardiovascular: Present normal rhythm and tachycardia Adbominal Abdominal: Present soft and normal bowel sounds; Absent tenderness Extremities Extremities: Present normal capillary refill Neurological Neurological: Present oriented X3 Psychiatric Psychiatric: Present flat affect and poor eye contact Skin Skin: Present warm (WNL) and intact Course Course Course Narrative: Patient was evaluated for altered mental status. Patient is alert and oriented x3 but little bit slow. Labs show that she was hyponatremic with a sodium level 117. CT of the head was obtained with image reviewed myself with no acute abnormalities. Patient also has a mild UTI. She is given IV fluids and also some IV Rocephin. Blood pressure was elevated and she did meet hypertensive urgency criteria so she was given some IV Lopressor and labetalol. Case was discussed with hospitalist has agreed to admit the patient. Patient be admitted to PCU. Patient is agreement with plan Reevaluation(s) Reevaluation #1: Patient remains hemodynamically stable. No new complaints at this time Time: 00:20 Vital Signs Vital signs: Vital Signs Temperature 96.8 F L 02/02/22 23:05 Pulse Rate 115 H 02/02/22 23:05 Respiratory Rate 24 H 02/02/22 23:05 Blood Pressure 163/123 02/02/22 23:05 Pulse Oximetry (%) 94 02/02/22 23:05 Oxygen Delivery Method 02/02/22 23:05 Temperature 96.8 F L 02/02/22 23:05 Pulse Rate 80 02/03/22 04:31 Respiratory Rate 27 H 02/03/22 04:21 Blood Pressure 201/101 02/03/22 04:31 Pulse Oximetry (%) 93 02/03/22 04:31 Oxygen Delivery Method 02/03/22 01:00 Oxygen Flow Rate (L/min) 1 02/03/22 01:00 MDM MDM Narrative Medical decision making narrative: Narrative: Differential Diagnosis Differential Diagnosis: Viral illness, altered mental status, stroke, urinary tract infection, seps Medical Records Medical records reviewed: Yes I reviewed the patient's medical records. Lab Data Lab results reviewed: Yes I reviewed the patient's lab results. Result diagrams: 02/02/22 23:38 02/02/22 23:38 Labs: Lab Results 02/02/22 02/02/22 02/02/22 Range/Units 23:30 23:30 23:30 WBC (4.5-11.0) K/mcL RBC (3.59-5.38) M/mcL Hgb (11.2-15.7) g/dL Hct (34.1-44.9) % POC Hct (36-48) MCV (80.0-100.0) fL MCH (26.0-34.0) pg MCHC (31.0-36.0) g/dL RDW (11.5-14.5) % Plt Count (140-440) K/mcL MPV (7.4-10.4) fL Immature Gran % (Auto) (0.0-0.5) % Neut % (Auto) (38.0-78.0) % Lymph % (Auto) (15.5-49.0) % [place] % (Auto) (1.0-12.0) % Eos % (Auto) (0.0-7.0) % Baso % (Auto) (0.0-2.0) % Lymph # (Auto) (1.50-4.80) K/mcL [place] # (Auto) (0.10-0.90) K/mcL Eos # (Auto) (0.00-0.70) K/mcL Baso # (Auto) (0.00-0.30) K/mcL Immature Gran # (0.00-0.05) K/mcl Absolute Neutrophils (1.80-8.00) K/mcL D-Dimer (0.27-0.5) ug/mL POC VBG pH (7.32-7.42) POC VBG pCO2 at Temp (41-51) POC VBG pO2 (25-40) POC VBG HCO3 (24-28) POC VBG Total CO2 (25-29) POC Venous O2 Sat (40-70) POC VBG Base Excess (-2-2) VBG Lactic Acid (0.5-2) POC Sodium (133-145) Sodium (133-145) mmol/L POC Potassium (3.3-5.1) Potassium (3.3-5.1) mmol/L POC Chloride (96-108) Chloride (96-108) mmol/L Carbon Dioxide (22-30) mmol/L POC Total CO2 (22-30) Anion Gap (8.0-16.0) POC BUN (6-20) BUN (8-23) mg/dL Creatinine (0.6-1.1) mg/dL POC Creatinine (0.6-1.2) GFR Calculation Glucose (70-105) mg/dL POC Glucose (70-105) Osmolality (280-300) mOSM/kg Calcium (8.6-10.4) mg/dL POC WB Ioniz Calcium (1.16-1.32) Total Bilirubin (0.1-1.0) mg/dL AST (<32) U/L ALT (<40) U/L Alkaline Phosphatase (39-117) U/L Total Protein (5.9-8.4) gm/dL Albumin (3.2-5.2) gm/dL Globulin (2.2-3.7) gm/dL Albumin/Globulin Ratio (1.0-2.3) Procalcitonin (<0.10) ng/mL Urine Color Yellow Urine Appearance Cloudy A (Clear) Urine pH 6.0 (5.0-9.0) Ur Specific [place] 1.023 (1.000-1.035) Urine Protein >=500 A (Negative) mg/dL Urine Glucose (UA) Negative (Negative) mg/dL Urine Ketones 80 A (Negative) mg/dL Urine Occult Blood 0.03 (Negative) mg/dL Urine Nitrate Negative (Negative) Urine Bilirubin Negative (Negative) mg/dL Urine Urobilinogen Negative mg/dL Ur Leukocyte Esterase 500 A (Negative) /uL Urine RBC 12 H (0-3) /hpf Urine WBC 97 H (0-4) /hpf Ur Squamous Epith Cells 0 (0-4) /hpf Urine Bacteria Few A (0) /hpf Urine Mucus Many A (None) /hpf Ur Culture Indicated? yes Urine Osmolality 663 (80-1000) mOSM/kg Ur Random Sodium 10 mmol/L Ethyl Alcohol mg/dL mg/dL Ethyl Alcohol g/dL (<0.010) gm/dL 02/02/22 02/02/22 02/02/22 Range/Units 23:38 23:38 23:38 WBC 9.6 (4.5-11.0) K/mcL RBC 4.36 (3.59-5.38) M/mcL Hgb 14.3 (11.2-15.7) g/dL Hct 39.0 (34.1-44.9) % POC Hct (36-48) MCV 89.4 (80.0-100.0) fL MCH 32.8 (26.0-34.0) pg MCHC 36.7 H (31.0-36.0) g/dL RDW 9.7 L (11.5-14.5) % Plt Count 261 (140-440) K/mcL MPV 9.1 (7.4-10.4) fL Immature Gran % (Auto) 0.4 (0.0-0.5) % Neut % (Auto) 82.3 H (38.0-78.0) % Lymph % (Auto) 10.5 L (15.5-49.0) % [place] % (Auto) 6.7 (1.0-12.0) % Eos % (Auto) 0 (0.0-7.0) % Baso % (Auto) 0.1 (0.0-2.0) % Lymph # (Auto) 1.01 L (1.50-4.80) K/mcL [place] # (Auto) 0.65 (0.10-0.90) K/mcL Eos # (Auto) 0 (0.00-0.70) K/mcL Baso # (Auto) 0.01 (0.00-0.30) K/mcL Immature Gran # 0.04 (0.00-0.05) K/mcl Absolute Neutrophils 7.97 (1.80-8.00) K/mcL D-Dimer (0.27-0.5) ug/mL POC VBG pH (7.32-7.42) POC VBG pCO2 at Temp (41-51) POC VBG pO2 (25-40) POC VBG HCO3 (24-28) POC VBG Total CO2 (25-29) POC Venous O2 Sat (40-70) POC VBG Base Excess (-2-2) VBG Lactic Acid (0.5-2) POC Sodium (133-145) Sodium 117 L* (133-145) mmol/L POC Potassium (3.3-5.1) Potassium 3.5 (3.3-5.1) mmol/L POC Chloride (96-108) Chloride 71 L (96-108) mmol/L Carbon Dioxide 32 H (22-30) mmol/L POC Total CO2 (22-30) Anion Gap 14.0 (8.0-16.0) POC BUN (6-20) BUN 14 (8-23) mg/dL Creatinine 0.5 L (0.6-1.1) mg/dL POC Creatinine (0.6-1.2) GFR Calculation 104 Glucose 179 H (70-105) mg/dL POC Glucose (70-105) Osmolality (280-300) mOSM/kg Calcium 9.6 (8.6-10.4) mg/dL POC WB Ioniz Calcium (1.16-1.32) Total Bilirubin 0.7 (0.1-1.0) mg/dL AST 32 H (<32) U/L ALT 22 (<40) U/L Alkaline Phosphatase 62 (39-117) U/L Total Protein 7.5 (5.9-8.4) gm/dL Albumin 4.8 (3.2-5.2) gm/dL Globulin 2.7 (2.2-3.7) gm/dL Albumin/Globulin Ratio 1.8 (1.0-2.3) Procalcitonin 0.03 (<0.10) ng/mL Urine Color Urine Appearance (Clear) Urine pH (5.0-9.0) Ur Specific [place] (1.000-1.035) Urine Protein (Negative) mg/dL Urine Glucose (UA) (Negative) mg/dL Urine Ketones (Negative) mg/dL Urine Occult Blood (Negative) mg/dL Urine Nitrate (Negative) Urine Bilirubin (Negative) mg/dL Urine Urobilinogen mg/dL Ur Leukocyte Esterase (Negative) /uL Urine RBC (0-3) /hpf Urine WBC (0-4) /hpf Ur Squamous Epith Cells (0-4) /hpf Urine Bacteria (0) /hpf Urine Mucus (None) /hpf Ur Culture Indicated? Urine Osmolality (80-1000) mOSM/kg Ur Random Sodium mmol/L Ethyl Alcohol mg/dL mg/dL Ethyl Alcohol g/dL (<0.010) gm/dL 02/02/22 02/02/22 02/02/22 Range/Units 23:38 23:38 23:38 WBC (4.5-11.0) K/mcL RBC (3.59-5.38) M/mcL Hgb (11.2-15.7) g/dL Hct (34.1-44.9) % POC Hct (36-48) MCV (80.0-100.0) fL MCH (26.0-34.0) pg MCHC (31.0-36.0) g/dL RDW (11.5-14.5) % Plt Count (140-440) K/mcL MPV (7.4-10.4) fL Immature Gran % (Auto) (0.0-0.5) % Neut % (Auto) (38.0-78.0) % Lymph % (Auto) (15.5-49.0) % [place] % (Auto) (1.0-12.0) % Eos % (Auto) (0.0-7.0) % Baso % (Auto) (0.0-2.0) % Lymph # (Auto) (1.50-4.80) K/mcL [place] # (Auto) (0.10-0.90) K/mcL Eos # (Auto) (0.00-0.70) K/mcL Baso # (Auto) (0.00-0.30) K/mcL Immature Gran # (0.00-0.05) K/mcl Absolute Neutrophils (1.80-8.00) K/mcL D-Dimer < 0.27 L (0.27-0.5) ug/mL POC VBG pH (7.32-7.42) POC VBG pCO2 at Temp (41-51) POC VBG pO2 (25-40) POC VBG HCO3 (24-28) POC VBG Total CO2 (25-29) POC Venous O2 Sat (40-70) POC VBG Base Excess (-2-2) VBG Lactic Acid (0.5-2) POC Sodium (133-145) Sodium (133-145) mmol/L POC Potassium (3.3-5.1) Potassium (3.3-5.1) mmol/L POC Chloride (96-108) Chloride (96-108) mmol/L Carbon Dioxide (22-30) mmol/L POC Total CO2 (22-30) Anion Gap (8.0-16.0) POC BUN (6-20) BUN (8-23) mg/dL Creatinine (0.6-1.1) mg/dL POC Creatinine (0.6-1.2) GFR Calculation Glucose (70-105) mg/dL POC Glucose (70-105) Osmolality 249 L (280-300) mOSM/kg Calcium (8.6-10.4) mg/dL POC WB Ioniz Calcium (1.16-1.32) Total Bilirubin (0.1-1.0) mg/dL AST (<32) U/L ALT (<40) U/L Alkaline Phosphatase (39-117) U/L Total Protein (5.9-8.4) gm/dL Albumin (3.2-5.2) gm/dL Globulin (2.2-3.7) gm/dL Albumin/Globulin Ratio (1.0-2.3) Procalcitonin (<0.10) ng/mL Urine Color Urine Appearance (Clear) Urine pH (5.0-9.0) Ur Specific [place] (1.000-1.035) Urine Protein (Negative) mg/dL Urine Glucose (UA) (Negative) mg/dL Urine Ketones (Negative) mg/dL Urine Occult Blood (Negative) mg/dL Urine Nitrate (Negative) Urine Bilirubin (Negative) mg/dL Urine Urobilinogen mg/dL Ur Leukocyte Esterase (Negative) /uL Urine RBC (0-3) /hpf Urine WBC (0-4) /hpf Ur Squamous Epith Cells (0-4) /hpf Urine Bacteria (0) /hpf Urine Mucus (None) /hpf Ur Culture Indicated? Urine Osmolality (80-1000) mOSM/kg Ur Random Sodium mmol/L Ethyl Alcohol mg/dL < 10.0 mg/dL Ethyl Alcohol g/dL < 0.010 (<0.010) gm/dL 02/03/22 02/03/22 Range/Units 01:31 01:36 WBC (4.5-11.0) K/mcL RBC (3.59-5.38) M/mcL Hgb (11.2-15.7) g/dL Hct (34.1-44.9) % POC Hct 41.0 (36-48) MCV (80.0-100.0) fL MCH (26.0-34.0) pg MCHC (31.0-36.0) g/dL RDW (11.5-14.5) % Plt Count (140-440) K/mcL MPV (7.4-10.4) fL Immature Gran % (Auto) (0.0-0.5) % Neut % (Auto) (38.0-78.0) % Lymph % (Auto) (15.5-49.0) % [place] % (Auto) (1.0-12.0) % Eos % (Auto) (0.0-7.0) % Baso % (Auto) (0.0-2.0) % Lymph # (Auto) (1.50-4.80) K/mcL [place] # (Auto) (0.10-0.90) K/mcL Eos # (Auto) (0.00-0.70) K/mcL Baso # (Auto) (0.00-0.30) K/mcL Immature Gran # (0.00-0.05) K/mcl Absolute Neutrophils (1.80-8.00) K/mcL D-Dimer (0.27-0.5) ug/mL POC VBG pH 7.40 (7.32-7.42) POC VBG pCO2 at Temp 56.7 H (41-51) POC VBG pO2 158 H (25-40) POC VBG HCO3 35.3 H (24-28) POC VBG Total CO2 37.0 H (25-29) POC Venous O2 Sat 99.0 H (40-70) POC VBG Base Excess 11.0 H* (-2-2) VBG Lactic Acid 2.0 (0.5-2) POC Sodium 118 L* (133-145) Sodium (133-145) mmol/L POC Potassium 3.5 (3.3-5.1) Potassium (3.3-5.1) mmol/L POC Chloride 75 L (96-108) Chloride (96-108) mmol/L Carbon Dioxide (22-30) mmol/L POC Total CO2 32.0 H (22-30) Anion Gap (8.0-16.0) POC BUN 14 (6-20) BUN (8-23) mg/dL Creatinine (0.6-1.1) mg/dL POC Creatinine 0.4 L (0.6-1.2) GFR Calculation Glucose (70-105) mg/dL POC Glucose 142 H (70-105) Osmolality (280-300) mOSM/kg Calcium (8.6-10.4) mg/dL POC WB Ioniz Calcium 1.07 L (1.16-1.32) Total Bilirubin (0.1-1.0) mg/dL AST (<32) U/L ALT (<40) U/L Alkaline Phosphatase (39-117) U/L Total Protein (5.9-8.4) gm/dL Albumin (3.2-5.2) gm/dL Globulin (2.2-3.7) gm/dL Albumin/Globulin Ratio (1.0-2.3) Procalcitonin (<0.10) ng/mL Urine Color Urine Appearance (Clear) Urine pH (5.0-9.0) Ur Specific [place] (1.000-1.035) Urine Protein (Negative) mg/dL Urine Glucose (UA) (Negative) mg/dL Urine Ketones (Negative) mg/dL Urine Occult Blood (Negative) mg/dL Urine Nitrate (Negative) Urine Bilirubin (Negative) mg/dL Urine Urobilinogen mg/dL Ur Leukocyte Esterase (Negative) /uL Urine RBC (0-3) /hpf Urine WBC (0-4) /hpf Ur Squamous Epith Cells (0-4) /hpf Urine Bacteria (0) /hpf Urine Mucus (None) /hpf Ur Culture Indicated? Urine Osmolality (80-1000) mOSM/kg Ur Random Sodium mmol/L Ethyl Alcohol mg/dL mg/dL Ethyl Alcohol g/dL (<0.010) gm/dL ED POC Tests ED POC Tests: JAXON - Influenza A Negative JAXON - Influenza B Negative JAXON - SARS Antigen Negative Radiology Data Radiology results reviewed: Yes I reviewed the patient's radiology results. Radiology results narrative: CT of the head obtained with image reviewed myself, no acute findings X-ray of the chest obtained with image reviewed myself, no acute cardiopulmonary findings Core Measures AMI Core Measures Followed: Yes Discharge Plan Patient/Caregiver Discharge Instructions Pt seen by TEST TECHNICIAN/PA only: No Clinical Impression: Acute hypokalemia, Hardness of breast AMS (altered mental status) Qualifiers: Altered mental status type: unspecified Qualified Code(s): R41.82 - Altered mental status, unspecified UTI (urinary tract infection) Qualifiers: Urinary tract infection type: catheter-associated UTI Indwelling urinary catheter type: cystostomy catheter Encounter type: initial encounter Qualified Code(s): T83.510A - Infection and inflammatory reaction due to cystostomy cath eter, initial encounter Patient Disposition: Xfer As Inpt ([facility]) Condition: Fair Discharge Date/Time: 02/03/22 04:37
[2022-02-02] MEDS ORDERED: METOPROLOL TARTRATE 5 MG/5 ML VIAL IV ONE (23:59)
[2022-02-03 00:10] LABS: Basophils # (Auto) 0.01 K/mcL (0.00-0.30); Basophils % (Auto) 0.1 % (0.0-2.0); Eosinophils # (Auto) 0 K/mcL (0.00-0.70); Eosinophils % (Auto) 0 % (0.0-7.0); Hemoglobin 14.3 g/dL (11.2-15.7); Lymphocytes # (Auto) 1.01 K/mcL (1.50-4.80); Lymphocytes % (Auto) 10.5 % (15.5-49.0); Mean Cell Volume 89.4 fL (80.0-100.0); Mean Corpuscular HGB Conc 36.7 g/dL (31.0-36.0); Mean Platelet Volume 9.1 fL (7.4-10.4); Monocytes # (Auto) 0.65 K/mcL (0.10-0.90); Monocytes % (Auto) 6.7 % (1.0-12.0); Neutrophils % (Auto) 82.3 % (38.0-78.0); Platelet Count 261 K/mcL (140-440); RBC 4.36 M/mcL (3.59-5.38); Red Cell Distribution Width 9.7 % (11.5-14.5); WBC 9.6 K/mcL (4.5-11.0)
[2022-02-03 00:16] LABS: Appearance,Urine CLOUDY (Clear); Bacteria,Urine FEW /hpf (0); Bilirubin,Urine Negative (Negative); Color,Urine Yellow; Culture Indicated,Urine yes; Glucose,Urine (UA) Negative (Negative); Ketones,Urine 80 mg/dL (Negative); Leukocyte Esterase,Urine 500 /uL (Negative); Mucus,Urine MANY /hpf; Nitrate,Urine Negative (Negative); Protein,Urine >=500 mg/dL (Negative); Specific Gravity,Urine 1.023 (1.000-1.035); Urine Blood 0.03 mg/dL (Negative); Urine RBC 12 /hpf (0-3); Urine Squamous Epithelial Cell 0 /hpf (0-4); Urine WBC 97 /hpf (0-4); Urobilinogen,Urine Negative
[2022-02-03 00:45] LABS: ALT/SGPT 22 U/L (<40); AST/SGOT 32 U/L (<32); Albumin 4.8 gm/dL (3.2-5.2); Albumin/Globulin Ratio 1.8 (1.0-2.3); Alkaline Phosphatase 62 U/L (39-117); Bilirubin,Total 0.7 mg/dL (0.1-1.0); Blood Urea Nitrogen 14 mg/dL (8-23); Calcium 9.6 mg/dL (8.6-10.4); Carbon Dioxide 32 mmol/L (22-30); Chloride 71 mmol/L (96-108); Globulin 2.7 gm/dL (2.2-3.7); Glomerular Filtration Rate 104; Glucose 179 mg/dL (70-105)
[2022-02-03 01:34] LABS: POC Calcium, Ionized 1.07 (1.16-1.32); POC Creatinine 0.4 (0.6-1.2); POC Potassium 3.5 (3.3-5.1)
[2022-02-03] MEDS ORDERED: METOPROLOL TARTRATE 5 MG/5 ML VIAL IV ONE (02:40)
[2022-02-03] MEDS ORDERED: LABETALOL 5 MG/ML ML IV ONE (03:44)
[2022-02-03] MEDS ORDERED: ENALAPRILAT 1.25 MG/ML VIAL IV ONE (03:44)
[2022-02-03] MEDS ORDERED: 0.9 % SODIUM CHLORIDE 1,000 ML IV SCH (04:00)
[2022-02-03 04:27] LABS: Alcohol, Blood < 10.0 mg/dL; Alcohol,Blood < 0.010 gm/dL (<0.010)
[2022-02-03] MEDS: METOPROLOL TARTRATE 5 MG/5 ML VIAL IV PRN ×2 (05:16→12:17)
--- NOTE | 2022-02-03 05:57 | Cat Scan Report ---
INDICATION: ams COMPARISON: None. TECHNIQUE: Axial noncontrast-enhanced images through the brain. Sagittally and coronally reformatted images. FINDINGS: Examination was initially interpreted by [facility]. Examination is significantly limited as this patient was unable to hold still. Cerebral hemispheres:No detectable acute intracranial hemorrhage. No intra-axial abnormality.Brain volume is within normal limits for age. Periventricular white matter is negative without significant attenuation abnormality. Brainstem and cerebellum:No intra-axial abnormality Extra-axial:No acute hemorrhage. No subdural or epidural hematoma. No subarachnoid hemorrhage. Basilar cisterns are normal Calvarial:No calvarial fracture. No lytic lesion Temporal bones are negative. No destructive lesions Soft tissue, orbits, sinuses:Orbits and visualized facial soft tissues and paranasal sinuses are negative IMPRESSION: 1. Very limited evaluation due to patient motion 2. No acute or focal abnormality identified The exam was performed using radiation dose optimization techniques including, but not limited to, automated exposure control, adjustment of the mA and/or kV according to patient size and use of iterative reconstruction technique. Interpreted and Authenticated by: Marck Sanchez 02/03/22
--- NOTE | 2022-02-03 05:59 | XRay Report ---
INDICATION: ams TECHNIQUE: AP upright chest x-ray COMPARISON: Previous examination dated 12/31/2021 FINDINGS: Lungs:Lungs are negative. No focal pulmonary parenchymal infiltrate or mass Heart, vascular:No significant cardiomegaly. Pulmonary vascularity is normal. No pulmonary edema or pulmonary congestion Mediastinum, stone:No mediastinal widening. No hilar mass Pleura:No pleural fluid. No pleural-based mass or calcification Skeletal:Negative. There are densely calcified breast implants, unchanged IMPRESSION: No acute abnormality Interpreted and Authenticated by: Marck Sanchez 02/03/22
--- NOTE | 2022-02-03 06:12 | Cat Scan Report ---
INDICATION: sob, hard breast COMPARISON: Previous chest x-ray dated 02/02/2022. Previous chest CT scan dated 12/31/2021 TECHNIQUE: Axial images obtained through the chest. 80ml Isovue 370 injected intravenously, and scanning was performed during pulmonary arterial phase. Sagittally and coronally reformatted images were obtained. MIP reformatted images. FINDINGS: Lungs:Panlobar emphysema. No focal mass. No consolidation. No acute abnormality Mediastinum, vascular:Main pulmonary artery, right pulmonary artery, left pulmonary artery are negative. No intraluminal filling defects. No lobar, segmental, or subsegmental emboli. Main pulmonary artery is mildly enlarged and measures 3.2 cm in cross-sectional diameter. Pulmonary arterial hypertension is possible. Thoracic aorta is negative. No aneurysmal dilatation. Ascending aorta measures 3.9 cm in cross-sectional diameter. No pathologic mediastinal or hilar adenopathy Heart:No cardiomegaly. No pericardial effusion. There is reflux of contrast material into the inferior vena cava and hepatic veins consistent with right heart strain Pleura:No significant pleural effusion. No pleural mass or calcification Axilla, supraclavicular regions, chest wall:No pathologic axillary or supraclavicular adenopathy. There are densely calcified breast implants Musculoskeletal:Compression fractures of the T8 and T9 vertebral bodies are unchanged since 12/31/2021. New mild compression deformity of the T7 vertebral body. There are no lytic lesions. Findings are consistent with benign osteoporotic fractures Upper Abdomen:Negative IMPRESSION: 1. Negative pulmonary CTA. No pulmonary emboli 2. Mildly dilated main pulmonary artery suggests pulmonary arterial hypertension 3. Panlobar emphysema 4. Reflux of contrast material into the inferior vena cava and hepatic veins consistent with right heart strain 5. Mild T7 compression deformity, new since 12/31/2021. Chronic compression deformities of T8 and T9 vertebral bodies The exam was performed using radiation dose optimization techniques including, but not limited to, automated exposure control, adjustment of the mA and/or kV according to patient size and use of iterative reconstruction technique. Interpreted and Authenticated by: Marck Sanchez 02/03/22
[2022-02-03] MEDS ORDERED: ALBUTEROL SULFATE 200 PUFF INHALER INH PRN (08:20)
[2022-02-03] MEDS ORDERED: ONDANSETRON 4 MG/2 ML VIAL IV PRN (08:29)
[2022-02-03] MEDS ORDERED: LACTULOSE 20 GM/30 ML ORAL.SOL PO PRN (08:29)
[2022-02-03] MEDS ORDERED: SENNOSIDES 1 TABLET PO PRN (08:29)
[2022-02-03] MEDS ORDERED: cefTRIAXone 1 GM in DEXTROSE 5% IN WATER 50 ML IV SCH (08:30)
[2022-02-03] MEDS: 0.9 % SODIUM CHLORIDE 1,000 ML IV SCH ×2 (08:31→17:39)
[2022-02-03] MEDS: cefTRIAXone 1 GM VIAL IV SCH (08:41)
[2022-02-03] MEDS ORDERED: ESCITALOPRAM 10 MG TABLET PO SCH (09:00)
[2022-02-03] MEDS ORDERED: NON FORMULARY MEDICATION 1 DOSE MISCELL (Omeprazole 40 mg capsule,delayed release(DR/EC)) PO SCH (09:00)
[2022-02-03] MEDS ORDERED: ESCITALOPRAM OXALATE 5 MG PO SCH (09:00)
[2022-02-03] MEDS: FLUTICASONE/SALMETEROL 250/50 INHALER #14 INH SCH ×2 (11:22→20:04)
[2022-02-03] MEDS: DOCUSATE SODIUM 100 MG CAPSULE PO SCH ×2 (11:22→19:59)
[2022-02-03] MEDS: ENOXAPARIN 40 MG/0.4 ML SYRINGE SQ SCH (11:51)
[2022-02-03] MEDS: OMEPRAZOLE 20 MG CAPSULE PO SCH (11:52)
[2022-02-03] MEDS: 0.9 % SODIUM CHLORIDE 10 ML SYRINGE IV SCH ×2 (12:17→20:03)
[2022-02-03] MEDS ORDERED: methylPREDNISolone SOD SUCC 125 MG/2 ML VIAL IV SCH (12:50)
--- NOTE | 2022-02-03 12:52 | Internal Med History&Physical ---
HPI History of Present Illness Patient information: Note initiated : 02/03/22 at 12:43 pm Service Date, if different from initiated Date: [] Patient: Dorcas Velasquez a 61 y/o F admitted on 02/03/22 for confused. Chief Complaint: [ALOC] Chief complaint: Toxic metabolic encephalopathy History of present illness: Ms. Velasquez is a 61 year old F past medical history significant for polypharmacy, anxiety/depression, failure to thrive, and end-stage COPD with chronic hypoxemic respiratory failure requiring supplemental O2 who is admitted again this month to the hospital for altered sensorium. The patient is a poor historian. There has been concerns for short-term memory impairment. It is unclear if she is able to look after herself at home. She states that she continues to take multiple sedatives including gabapentin, tizanidine, lorazepam, and Coggon. It is unclear whether she has had worsening CO2 retention resulting in altered mental status. With her ongoing issues with memory and sedation, it is likely that she has had poor p.o. intake. On arrival she was hemodynamically stable however was severely hyponatremic with a sodium of 118. There is also concerns that she may have a UTI as her UA was grossly abnormal. The hospitalist service has been asked admit the patient for further management and evaluation. Review of Systems All systems: reviewed and no additional remarkable complaints except as stated Constitutional Constitutional: Present as per HPI EENT Eyes: Present as per HPI; Absent blurry vision Cardiovascular Cardiovascular: Present as per HPI; Absent chest pain, dyspnea, dyspnea on exertion, leg edema or palpatations Respiratory Respiratory: Present as per HPI, dyspnea and dyspnea on exertion; Absent cough or stridor Gastrointestinal Gastrointestinal: Present as per HPI; Absent abdominal pain, diarrhea, dysphagia, hematemesis, melena, nausea or vomiting Musculoskeletal Musculoskeletal: Present as per HPI; Absent joint swelling, limited range of motion, muscle cramps, muscle weakness or myalgias Integumentary Integumentary: Present as per HPI; Absent erythema, new lesions, rash or wounds Neurological Neurological: Present as per HPI; Absent abnormal gait, behavioral changes, focal weakness, headache(s), loss of vision, numbness, sensory deficit or syncope Endocrine Endocrine: Absent change in body appearance, fatigue or heat intolerance Hematologic/Lymphatic Hematologic/Lymphatic: Present as per HPI PFSH PFSH All Active Problems (Updated 02/03/22 @ 12:50 by Doc Wong MD) End stage COPD (Acute) Toxic metabolic encephalopathy (Acute) Alcohol abuse, in remission (Chronic) Anxiety disorder (Chronic) Asthma (Chronic) Breast pain (Chronic 04/18/13) Chronic pain (Chronic) Depression (Chronic) Gastroesophageal reflux (Chronic) 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) Low back pain (Chronic) Menopausal syndrome (Chronic 04/18/13) Migraine (Chronic) Osteoporosis (Chronic 06/15/13) Peripheral neuropathy (Chronic 09/12/13) Psoriasis (Chronic) Allergic rhinitis (Chronic) Vitamin B 12 deficiency (Chronic 09/12/13) Hypertension (Chronic) Spasm of back muscles (Chronic) Vitamin D deficiency (Chronic) Hypomagnesemia (Chronic) Muscle cramps (Chronic) Lumbar back pain with radiculopathy affecting left lower extremity (Chronic) Abnormal weight loss (Acute) Neurogenic bladder (Chronic) Ovarian mass (Chronic) Acute retention of urine (Chronic) Degenerative disc disease (Chronic) Chronic pain syndrome (Chronic) History of surgery (Chronic ~2011) History of mandibular surgery (Acute) Chronic suprapubic catheter (Acute) Suprapubic catheter dysfunction (Acute) Encounter for suprapubic catheter care (Acute) Current smoker (Acute) Acute exacerbation of chronic obstructive pulmonary disease (COPD) (Acute) Acute hypoxemic respiratory failure (Acute) Asthma exacerbation (Acute) Hyponatremia (Acute) Acute hypokalemia (Acute) AMS (altered mental status) (Acute) Hardness of breast (Acute) UTI (urinary tract infection) (Acute) Medical History (Updated 02/03/22 @ 12:50 by Doc Wong MD) Acute retention of urine Alcohol abuse, in remission Allergic rhinitis Anemia Angioedema (09/19/14) Anxiety disorder Arthropathy Asthma Breast pain (04/18/13) Capsular contracture of breast implant (04/18/13) Chronic pain Chronic pain syndrome Degenerative disc disease Depression Edema Encounter for routine gynecological examination (04/18/13) Family history of diabetes mellitus (03/16/13) Fatigue Gastric ulcer, chronic (08/23/11) [facility] Dr. Cooper did an exploratory laparotomy with enterotomy and oversew of bleeding duodenal ulcer converted to Bilroth II partial gastric resection with gastrojejunostomy Gastroesophageal reflux Hyperkalemia NOrmal now, Hypertension Hypokalemia (09/01/11) As in patient Hypomagnesemia [facility] current use of anticoagulant Low back pain chr, refer to PT Menopausal syndrome (04/18/13) Migraine Muscle cramps Neurogenic bladder Osteoporosis (06/15/13) Calcium Vit D3 1,000 units Alendronate 70mg q weekly Ovarian mass Pain in joint christian knee pain, refer to PT Pain in joint, lower leg Peripheral neuropathy (09/12/13) Psoriasis Pulmonary embolism s/p treatment for 6 months Routine cervical smear (04/18/13) Spasm of back muscles chr issue, now has been flaring up, remote h/o trauma, notes used to use soma before, will give trial of cyclobenzapril 5mg tid. Spasm of back muscles Thrombosis/embolism, venous Tobacco abuse (12/14/13) still smoking advised to quit, counselled for 5 mins UTI (urinary tract infection) Vitamin B 12 deficiency (09/12/13) on 1,000mcg daily check b12 levels Vitamin D deficiency Surgical History History of breast augmentation (~1987) bilateral implants, with intracapsular leaks, but not extracapsular. History of colonoscopy done in jul 2011, while patient was inpatient for GI bleed. as per note in system, no abnormalities detected History of esophagogastroduodenoscopy (08/23/11) [facility] Dr. Cooper did an exploratory laparotomy with enterotomy and oversew of bleeding duodenal ulcer converted to Bilroth II partial gastric resection with gastrojejunostomy History of mandibular surgery History of surgery (~2011) Perforated ulcer; partial pancreas, partial liver, partial small intestine and partial stomach removal Family History Brother Alcohol abuse Grandfather Alcohol abuse Maternal Uncle Alcohol abuse Mother Alzheimer's disease Type 2 diabetes mellitus Manic affective disorder, recurrent episode, unspecified degree Diabetes mellitus Unknown No problems noted. Father Cardiac disease Malignant neoplasm of pancreas May have had but does not know details Schizophrenia Social History marital status: legally occupational status: disabled physical activity: none alcohol intake frequency: does not drink substance use type: marijuana additional history: Patient has a prescription for medical marijuana. MEDS/ALLERGIES Home Medications and Allergies Home Medications Medication Instructions Recorded Confirmed Type albuterol sulfate 90 mcg/actuation 2 puff inhalation Q4-6HP PRN 04/03/20 02/03/22 History aerosol inhaler (ProAir HFA) Respiratory Distress fluticasone propionate 50 1 spray intranasal Q12H PRN 04/03/20 02/03/22 History mcg/actuation nasal Congestion spray,suspension hydrocodone 10 mg-acetaminophen 1 tab PO Q4H PRN Pain 04/03/20 02/03/22 History 325 mg tablet (Coggon) fluticasone 250 mcg-salmeterol 50 1 inh inhalation BID #60 ea 01/04/22 02/03/22 Rx mcg/dose blistr powdr for inhalation (Advair Diskus) gabapentin 400 mg capsule 400 mg PO TID #90 caps 01/04/22 02/03/22 Rx clonazepam 1 mg tablet 1 tab PO TID 02/03/22 02/03/22 History doxepin 50 mg capsule 1 cap PO HS 02/03/22 02/03/22 History escitalopram oxalate 10 mg tablet 1 tab PO QDAY 02/03/22 02/03/22 History escitalopram oxalate 5 mg tablet 1 tab PO QDAY 02/03/22 02/03/22 History lorazepam 1 mg tablet 1 tab PO BID 02/03/22 02/03/22 History omeprazole 20 mg capsule,delayed 1 cap PO QDAY PRN Heartburn 02/03/22 02/03/22 History release tizanidine 4 mg tablet 1 tab PO TID 02/03/22 02/03/22 History Allergies Allergy/AdvReac Type Severity Reaction Status Date / Time Sulfa (Sulfonamide Allergy Mild Rash Verified 01/29/22 15:57 Antibiotics) codeine AdvReac Mild Headache Verified 01/29/22 15:57 methylprednisolone AdvReac Mild Nausea Verified 01/29/22 15:57 EXAM Constitutional Vitals: Temp Pulse Resp BP Pulse Ox O2 Del Method O2 Flow Rate 97.9 F 96 H 23 H 189/97 95 2 02/03/22 12:01 02/03/22 12:01 02/03/22 12:01 02/03/22 12:01 02/03/22 12:01 02/03/22 07:21 02/03/22 12:01 General appearance: average body habitus Head Head exam: Present atraumatic, normal inspection and normocephalic Eye Eye exam: Present EOMI, normal appearance and PERRL; Absent conjunctival injection ENT ENT exam: Present normal exam; Absent mucous membranes dry Neck Neck exam: Present full ROM; Absent lymphadenopathy Respiratory Respiratory exam: Present decreased breath sounds, prolonged expiratory phase, respiratory distress, rhonchi and wheezes; Absent normal respiratory exam or CTAB Cardiovascular Cardiovascular exam: Present normal rate and rhythm and RRR; Absent JVD GI/Abdominal GI/Abdominal exam: Present normal bowel sounds and soft; Absent diminished bowel sounds, distended, guarding, mass, rebound or tenderness Neurological Exam Neurological exam: Present alert, CN II-XII intact and oriented X3 Psychiatric Psychiatric exam: Present normal affect and normal mood Skin Skin exam: Present intact and warm; Absent erythema, pallor, petechiae or rash DATA Data Completed and Pending Labs: Labs from last 24 hours 02/03/22 02/03/22 02/03/22 09:09 01:36 01:31 WBC RBC Hgb Hct POC Hct 41.0 MCV MCH MCHC RDW Plt Count MPV Immature Gran % (Auto) Neut % (Auto) Lymph % (Auto) [place] % (Auto) Eos % (Auto) Baso % (Auto) Lymph # (Auto) [place] # (Auto) Eos # (Auto) Baso # (Auto) Immature Gran # Absolute Neutrophils D-Dimer POC VBG pH 7.40 POC VBG pCO2 at Temp 56.7 H POC VBG pO2 158 H POC VBG HCO3 35.3 H POC VBG Total CO2 37.0 H POC Venous O2 Sat 99.0 H POC VBG Base Excess 11.0 H* VBG Lactic Acid 2.0 POC Sodium 118 L* Sodium Pending POC Potassium 3.5 Potassium Pending POC Chloride 75 L Chloride Pending Carbon Dioxide Pending POC Total CO2 32.0 H Anion Gap Pending POC BUN 14 BUN Pending Creatinine Pending POC Creatinine 0.4 L GFR Calculation Pending Glucose Pending POC Glucose 142 H Osmolality Calcium Pending POC WB Ioniz Calcium 1.07 L Total Bilirubin AST ALT Alkaline Phosphatase Total Protein Albumin Globulin Albumin/Globulin Ratio Procalcitonin Urine Color Urine Appearance Urine pH Ur Specific Sears Urine Protein Urine Glucose (UA) Urine Ketones Urine Occult Blood Urine Nitrate Urine Bilirubin Urine Urobilinogen Ur Leukocyte Esterase Urine RBC Urine WBC Ur Squamous Epith Cells Urine Bacteria Urine Mucus Ur Culture Indicated? Urine Osmolality Ur Random Sodium Ethyl Alcohol mg/dL Ethyl Alcohol g/dL 02/02/22 02/02/22 02/02/22 23:38 23:38 23:38 WBC RBC Hgb Hct POC Hct MCV MCH MCHC RDW Plt Count MPV Immature Gran % (Auto) Neut % (Auto) Lymph % (Auto) [place] % (Auto) Eos % (Auto) Baso % (Auto) Lymph # (Auto) [place] # (Auto) Eos # (Auto) Baso # (Auto) Immature Gran # Absolute Neutrophils D-Dimer < 0.27 L POC VBG pH POC VBG pCO2 at Temp POC VBG pO2 POC VBG HCO3 POC VBG Total CO2 POC Venous O2 Sat POC VBG Base Excess VBG Lactic Acid POC Sodium Sodium POC Potassium Potassium POC Chloride Chloride Carbon Dioxide POC Total CO2 Anion Gap POC BUN BUN Creatinine POC Creatinine GFR Calculation Glucose POC Glucose Osmolality 249 L Calcium POC WB Ioniz Calcium Total Bilirubin AST ALT Alkaline Phosphatase Total Protein Albumin Globulin Albumin/Globulin Ratio Procalcitonin Urine Color Urine Appearance Urine pH Ur Specific Sears Urine Protein Urine Glucose (UA) Urine Ketones Urine Occult Blood Urine Nitrate Urine Bilirubin Urine Urobilinogen Ur Leukocyte Esterase Urine RBC Urine WBC Ur Squamous Epith Cells Urine Bacteria Urine Mucus Ur Culture Indicated? Urine Osmolality Ur Random Sodium Ethyl Alcohol mg/dL < 10.0 Ethyl Alcohol g/dL < 0.010 02/02/22 02/02/22 02/02/22 23:38 23:38 23:38 WBC 9.6 RBC 4.36 Hgb 14.3 Hct 39.0 POC Hct MCV 89.4 MCH 32.8 MCHC 36.7 H RDW 9.7 L Plt Count 261 MPV 9.1 Immature Gran % (Auto) 0.4 Neut % (Auto) 82.3 H Lymph % (Auto) 10.5 L [place] % (Auto) 6.7 Eos % (Auto) 0 Baso % (Auto) 0.1 Lymph # (Auto) 1.01 L [place] # (Auto) 0.65 Eos # (Auto) 0 Baso # (Auto) 0.01 Immature Gran # 0.04 Absolute Neutrophils 7.97 D-Dimer POC VBG pH POC VBG pCO2 at Temp POC VBG pO2 POC VBG HCO3 POC VBG Total CO2 POC Venous O2 Sat POC VBG Base Excess VBG Lactic Acid POC Sodium Sodium 117 L* POC Potassium Potassium 3.5 POC Chloride Chloride 71 L Carbon Dioxide 32 H POC Total CO2 Anion Gap 14.0 POC BUN BUN 14 Creatinine 0.5 L POC Creatinine GFR Calculation 104 Glucose 179 H POC Glucose Osmolality Calcium 9.6 POC WB Ioniz Calcium Total Bilirubin 0.7 AST 32 H ALT 22 Alkaline Phosphatase 62 Total Protein 7.5 Albumin 4.8 Globulin 2.7 Albumin/Globulin Ratio 1.8 Procalcitonin 0.03 Urine Color Urine Appearance Urine pH Ur Specific Sears Urine Protein Urine Glucose (UA) Urine Ketones Urine Occult Blood Urine Nitrate Urine Bilirubin Urine Urobilinogen Ur Leukocyte Esterase Urine RBC Urine WBC Ur Squamous Epith Cells Urine Bacteria Urine Mucus Ur Culture Indicated? Urine Osmolality Ur Random Sodium Ethyl Alcohol mg/dL Ethyl Alcohol g/dL 02/02/22 02/02/22 02/02/22 23:30 23:30 23:30 WBC RBC Hgb Hct POC Hct MCV MCH MCHC RDW Plt Count MPV Immature Gran % (Auto) Neut % (Auto) Lymph % (Auto) [place] % (Auto) Eos % (Auto) Baso % (Auto) Lymph # (Auto) [place] # (Auto) Eos # (Auto) Baso # (Auto) Immature Gran # Absolute Neutrophils D-Dimer POC VBG pH POC VBG pCO2 at Temp POC VBG pO2 POC VBG HCO3 POC VBG Total CO2 POC Venous O2 Sat POC VBG Base Excess VBG Lactic Acid POC Sodium Sodium POC Potassium Potassium POC Chloride Chloride Carbon Dioxide POC Total CO2 Anion Gap POC BUN BUN Creatinine POC Creatinine GFR Calculation Glucose POC Glucose Osmolality Calcium POC WB Ioniz Calcium Total Bilirubin AST ALT Alkaline Phosphatase Total Protein Albumin Globulin Albumin/Globulin Ratio Procalcitonin Urine Color Yellow Urine Appearance Cloudy A Urine pH 6.0 Ur Specific Sears 1.023 Urine Protein >=500 A Urine Glucose (UA) Negative Urine Ketones 80 A Urine Occult Blood 0.03 Urine Nitrate Negative Urine Bilirubin Negative Urine Urobilinogen Negative Ur Leukocyte Esterase 500 A Urine RBC 12 H Urine WBC 97 H Ur Squamous Epith Cells 0 Urine Bacteria Few A Urine Mucus Many A Ur Culture Indicated? yes Urine Osmolality 663 Ur Random Sodium 10 Ethyl Alcohol mg/dL Ethyl Alcohol g/dL A/P Assessment and plan (1) Toxic metabolic encephalopathy: Status: Acute (2) UTI (urinary tract infection): Status: Acute Qualifiers: Encounter type: initial encounter Indwelling urinary catheter type: cystostomy catheter Urinary tract infection type: catheter-associated UTI Qualified Code(s): T83.510A - Infection and inflammatory reaction due to cystostomy catheter, initial encounter; N39.0 - Urinary tract infection, site not specified (3) Chronic pain: Status: Chronic (4) Hypertension: Status: Chronic (5) Hyponatremia: Status: Acute (6) End stage COPD: Status: Acute Narrative A/P Narrative: At this point, the patient has multiple medical issues. Firstly, polypharmacy needs to be addressed and I am holding majority of her home sedatives. She would benefit from a cognitive evaluation with a MoCA. There are concerns that she may have a urinary tract infection as well and she is being empirically covered with ceftriaxone. Due to the patient's poor p.o. intake she likely has hypovolemic hyponatremia. We will trial normal saline IV fluid resuscitation. Her urine studies were not completely consistent with SIADH. Lastly, the patient has ongoing issues with her COPD and we will start duo nebs, Pulmicort and give her a dose of Solu-Medrol. Time Spent With Patient Time: Total time spent is greater than 50% in coordination of care (as documented) at patient's floor/unit and/or counseling patient: Total time spent with greater than 50% in coordination of care (as documented) at patient's floor/unit and/or counseling patient:: 50 - 70 minutes QUALITY VTE Deep Vein Thrombosis/Pulmonary Embolism Present on Admission: No
[2022-02-03] MEDS: ACETAMINOPHEN 325 MG TABLET PO PRN ×2 (13:51→20:03)
[2022-02-03] MEDS: ESCITALOPRAM 10 MG TABLET PO SCH (13:52)
[2022-02-03] MEDS: IPRATROPIUM/ALBUTEROL 3 ML AMPUL.NEB NEB SCH ×2 (14:02→18:37)
[2022-02-03 14:16] LABS: Blood Urea Nitrogen 16 mg/dL (8-23); Calcium 9.1 mg/dL (8.6-10.4); Carbon Dioxide 36 mmol/L (22-30); Chloride 77 mmol/L (96-108); Glomerular Filtration Rate 111; Glucose 181 mg/dL (70-105)
[2022-02-03] MEDS: NICOTINE 14 MG PATCH TOPICAL SCH (14:32)
[2022-02-03 16:10] LABS: Blood Urea Nitrogen 18 mg/dL (8-23); Carbon Dioxide 37 mmol/L (22-30); Chloride 80 mmol/L (96-108); Glomerular Filtration Rate 104; Glucose 146 mg/dL (70-105)
[2022-02-03] MEDS: BUDESONIDE 0.5 MG/2 ML AMPUL.NEB NEB SCH (19:31)
[2022-02-03 21:23] LABS: Blood Urea Nitrogen 14 mg/dL (8-23); Calcium 8.5 mg/dL (8.6-10.4); Carbon Dioxide 31 mmol/L (22-30); Chloride 81 mmol/L (96-108); Glomerular Filtration Rate 111; Glucose 164 mg/dL (70-105)
[2022-02-04] MEDS: IPRATROPIUM/ALBUTEROL 3 ML AMPUL.NEB NEB SCH ×4 (00:47→20:07)
[2022-02-04] MEDS: ACETAMINOPHEN 325 MG TABLET PO PRN (01:13)
[2022-02-04] MEDS: 0.9 % SODIUM CHLORIDE 1,000 ML IV SCH ×4 (03:35→23:38)
[2022-02-04] MEDS: 0.9 % SODIUM CHLORIDE 10 ML SYRINGE IV SCH ×3 (05:24→21:52)
[2022-02-04] MEDS: METOPROLOL TARTRATE 5 MG/5 ML VIAL IV PRN (06:36)
[2022-02-04] MEDS: BUDESONIDE 0.5 MG/2 ML AMPUL.NEB NEB SCH ×2 (07:08→20:07)
[2022-02-04 07:45] LABS: Blood Urea Nitrogen 16 mg/dL (8-23); Calcium 8.6 mg/dL (8.6-10.4); Carbon Dioxide 30 mmol/L (22-30); Chloride 85 mmol/L (96-108); Glomerular Filtration Rate 111; Glucose 159 mg/dL (70-105)
[2022-02-04 07:59] LABS: Basophils # (Auto) 0.01 K/mcL (0.00-0.30); Basophils % (Auto) 0.1 % (0.0-2.0); Eosinophils # (Auto) 0 K/mcL (0.00-0.70); Eosinophils % (Auto) 0 % (0.0-7.0); Hematocrit 34.3 % (34.1-44.9); Hemoglobin 12.1 g/dL (11.2-15.7); Lymphocytes # (Auto) 0.85 K/mcL (1.50-4.80); Lymphocytes % (Auto) 11.4 % (15.5-49.0); Mean Corpuscular HGB Conc 35.3 g/dL (31.0-36.0); Mean Platelet Volume 9.3 fL (7.4-10.4); Monocytes # (Auto) 1.18 K/mcL (0.10-0.90); Monocytes % (Auto) 15.9 % (1.0-12.0); Neutrophils % (Auto) 72.3 % (38.0-78.0); Platelet Count 227 K/mcL (140-440); RBC 3.69 M/mcL (3.59-5.38); WBC 7.4 K/mcL (4.5-11.0)
[2022-02-04] MEDS: FLUTICASONE/SALMETEROL 250/50 INHALER #14 INH SCH ×2 (09:31→20:00)
[2022-02-04] MEDS: DOCUSATE SODIUM 100 MG CAPSULE PO SCH ×2 (09:32→20:01)
[2022-02-04] MEDS: ENOXAPARIN 40 MG/0.4 ML SYRINGE SQ SCH (09:38)
[2022-02-04] MEDS: OMEPRAZOLE 20 MG CAPSULE PO SCH (09:38)
[2022-02-04] MEDS: ESCITALOPRAM 10 MG TABLET PO SCH (09:38)
[2022-02-04] MEDS: amLODIPine 10 MG TABLET PO SCH (09:38)
[2022-02-04] MEDS: cefTRIAXone 1 GM VIAL IV SCH (09:39)
[2022-02-04] MEDS: NICOTINE 14 MG PATCH TOPICAL SCH (09:42)
--- NOTE | 2022-02-04 10:15 | EKG ---
[facility] Minor Care Test Date: 2022-02-02 Pat Name: Dorcas Velasquez Department: ED Room: Gender: Female Cotton Header: carmencita : 1960 Requested By: Mark Mae Order Number: [id number] Reading MD: Andrews Solano Measurements Intervals [place] Rate: 115 P: 85 [place]: 127 QRS: 0 QRSD: 99 T: 55 QT: 334 QTc: 462 Interpretive Statements Excessive artifact Sinus tachycardia Atrial premature complex Indeterminate axis Abnormal R-wave progression, late transition Artifact in lead(s) III,aVL,V2,V3,V4,V5,V6 Electronically Signed On 02-04-2022 10:14:48 PDT by Andrews Solano /store/M0/[id number]
--- NOTE | 2022-02-04 12:08 | Internal Med Progress Note ---
SUBJECTIVE Subjective Patient information: Note initiated : 02/04/22 at 12:03 pm Service Date, if different from initiated Date: [] Patient: Dorcas Velasquez 61 y/o F admitted on 02/03/22 for confused. Chief Complaint: [AMS] Principal diagnosis: Acute hyponatremia, polypharmacy Interval history: The patient's mentation is much improved. She is tachycardic and slightly diaphoretic. We will reinstitute her home Turlock and benzodiazepine to prevent any withdrawal. Constitutional Vitals: Vital Signs Temp Pulse Resp BP Pulse Ox O2 Del Method O2 Flow Rate 99.6 F H 103 H 23 H 152/95 97 2 02/04/22 08:01 02/04/22 10:01 02/04/22 10:01 02/04/22 10:01 02/04/22 10:01 02/04/22 06:45 02/04/22 10:01 Period Temp Pulse Resp BP Sys/Robles Pulse Ox O2 Del Method O2 Flow Rate Last 24 Hr 98.0 F-99.7 F 51-111 17-27 114-187/67-127 89-100 Nasal Cannula-Nasal Cannula 1-2 Intake and Output 02/03/22 02/04/22 02/04/22 21:59 05:59 13:59 Intake Total 913 1573 480 Output Total 625 270 Balance 288 1303 480 Weight 66.933 kg Intake & Output: Intake & Output 02/03/22 02/04/22 02/04/22 21:59 05:59 13:59 Intake Total 913 1573 480 Output Total 625 270 Balance 288 1303 480 Weight 66.933 kg Intake: Nourishment/Supplement quantity 240 (ml) IV 913 993 Sodium Chloride 0.9% 1,000 ml @ 913 993 100 mls/hr IV .Q10H [facility] Rx#: [id number] Oral 340 480 Output: Urine Catheter Amount 625 270 Other: Meal Dinner Nourishment/Supplement Breakfast Percent of Meal Consumed Refused 100% 75% Feeding Ability Independent Independent Nourishment/Supplement name ensure Urine Appearance Clear Cloudy Clear Sediment Suprapubic Cloudy Sediment Urine Color Bright Yellow Dark Yellow Bright Yellow Suprapubic Dark Yellow Urine Odor Strong Normal Stool Size Large Small Stool Color Brown Brown Stool Consistency Liquid Liquid Loose Loose # Bowel Movements 1 1 Head Head exam: Present atraumatic and normal inspection Eye Eye exam: Present normal appearance ENT ENT exam: Present mucous membranes moist, normal exam and normal external ear exam Neck Neck exam: Present normal inspection Respiratory Respiratory exam: Present decreased breath sounds and prolonged expiratory phase ; Absent respiratory distress Cardiovascular Cardiovascular exam: Present normal rate and rhythm GI/Abdominal GI/Abdominal exam: Present normal bowel sounds Back Exam Back exam: Present normal inspection Neurological Exam Neurological exam: Present alert and oriented X3 Skin Skin exam: Present intact and warm OBJ DATA Labs CBC & Chem 7: 02/04/22 05:13 02/04/22 05:16 Labs: Abnormal Lab Results 02/04/22 02/04/22 02/03/22 05:16 05:13 20:31 MCHC RDW 10.0 L Neut % (Auto) Lymph % (Auto) 11.4 L Drew % (Auto) 15.9 H Lymph # (Auto) 0.85 L Drew # (Auto) 1.18 H D-Dimer POC VBG pCO2 at Temp POC VBG pO2 POC VBG HCO3 POC VBG Total CO2 POC Venous O2 Sat POC VBG Base Excess POC Sodium Sodium 126 L 123 L Potassium 3.1 L POC Chloride Chloride 85 L 81 L Carbon Dioxide 31 H POC Total CO2 Anion Gap Creatinine 0.4 L 0.4 L POC Creatinine Glucose 159 H 164 H POC Glucose Osmolality Calcium 8.5 L POC WB Ioniz Calcium AST Urine Appearance Urine Protein Urine Ketones Ur Leukocyte Esterase Urine RBC Urine WBC Urine Bacteria Urine Mucus 02/03/22 02/03/22 02/03/22 14:34 09:09 01:36 MCHC RDW Neut % (Auto) Lymph % (Auto) Drew % (Auto) Lymph # (Auto) Drew # (Auto) D-Dimer POC VBG pCO2 at Temp 56.7 H POC VBG pO2 158 H POC VBG HCO3 35.3 H POC VBG Total CO2 37.0 H POC Venous O2 Sat 99.0 H POC VBG Base Excess 11.0 H* POC Sodium Sodium 121 L 120 L Potassium POC Chloride Chloride 80 L 77 L Carbon Dioxide 37 H 36 H POC Total CO2 Anion Gap 4.0 L 7.0 L Creatinine 0.5 L 0.4 L POC Creatinine Glucose 146 H 181 H POC Glucose Osmolality Calcium POC WB Ioniz Calcium AST Urine Appearance Urine Protein Urine Ketones Ur Leukocyte Esterase Urine RBC Urine WBC Urine Bacteria Urine Mucus 02/03/22 02/02/22 02/02/22 01:31 23:38 23:38 MCHC RDW Neut % (Auto) Lymph % (Auto) Drew % (Auto) Lymph # (Auto) Drew # (Auto) D-Dimer < 0.27 L POC VBG pCO2 at Temp POC VBG pO2 POC VBG HCO3 POC VBG Total CO2 POC Venous O2 Sat POC VBG Base Excess POC Sodium 118 L* Sodium Potassium POC Chloride 75 L Chloride Carbon Dioxide POC Total CO2 32.0 H Anion Gap Creatinine POC Creatinine 0.4 L Glucose POC Glucose 142 H Osmolality 249 L Calcium POC WB Ioniz Calcium 1.07 L AST Urine Appearance Urine Protein Urine Ketones Ur Leukocyte Esterase Urine RBC Urine WBC Urine Bacteria Urine Mucus 02/02/22 02/02/22 02/02/22 23:38 23:38 23:30 MCHC 36.7 H RDW 9.7 L Neut % (Auto) 82.3 H Lymph % (Auto) 10.5 L Drew % (Auto) Lymph # (Auto) 1.01 L Drew # (Auto) D-Dimer POC VBG pCO2 at Temp POC VBG pO2 POC VBG HCO3 POC VBG Total CO2 POC Venous O2 Sat POC VBG Base Excess POC Sodium Sodium 117 L* Potassium POC Chloride Chloride 71 L Carbon Dioxide 32 H POC Total CO2 Anion Gap Creatinine 0.5 L POC Creatinine Glucose 179 H POC Glucose Osmolality Calcium POC WB Ioniz Calcium AST 32 H Urine Appearance Cloudy A Urine Protein >=500 A Urine Ketones 80 A Ur Leukocyte Esterase 500 A Urine RBC 12 H Urine WBC 97 H Urine Bacteria Few A Urine Mucus Many A Meds: Medications Acetaminophen (Acetaminophen 325 Mg Tablet) 650 mg PO Q6HP PRN; Protocol PRN Reason: Per Pain Protocol/Fever > 101 Last Admin: 02/04/22 01:13 Dose: 650 mg Albuterol Sulfate (Albuterol Sulfate 200 Puff Inhaler) 2 puff INH Q2-4HP PRN PRN Reason: Respiratory Distress Albuterol/Ipratropium (Ipratropium/Albuterol 3 Ml Ampul.Neb) 3 ml NEB Q6HRT [facility] Last Admin: 02/04/22 07:08 Dose: 3 ml Amlodipine Besylate (Amlodipine 10 Mg Tablet) 10 mg PO DAILY [facility] Last Admin: 02/04/22 09:38 Dose: 10 mg Budesonide (Budesonide 0.5 Mg/2 Ml Ampul.Neb) 0.5 mg NEB Q12 [facility] Last Admin: 02/04/22 07:08 Dose: 0.5 mg Ceftriaxone Sodium (Ceftriaxone 1 Gm Vial) 1 gm IV Q24H [facility] Last Admin: 02/04/22 09:39 Dose: 1 gm Docusate Sodium (Docusate Sodium 100 Mg Capsule) 100 mg PO BID [facility] Last Admin: 02/04/22 09:32 Dose: Not Given Enoxaparin Sodium (Enoxaparin 40 Mg/0.4 Ml Syringe) 40 mg SQ DAILY [facility] Last Admin: 02/04/22 09:38 Dose: 40 mg Escitalopram Oxalate (Escitalopram 10 Mg Tablet) 5 mg PO QDAY [facility] Last Admin: 02/04/22 09:38 Dose: 5 mg Sodium Chloride (Sodium Chloride 0.9%) 1,000 mls @ 100 mls/hr IV .Q10H [facility] Last Admin: 02/04/22 03:35 Dose: 100 mls/hr Lactulose (Lactulose 20 Gm/30 Ml Oral.Emilie) 10 gm PO DAILYP PRN PRN Reason: Constipation Metoprolol Tartrate (Metoprolol Tartrate 5 Mg/5 Ml Vial) 5 mg IV Q4HP PRN PRN Reason: Tachyarrhythmias Last Admin: 02/04/22 06:36 Dose: 5 mg Nicotine (Nicotine 14 Mg Patch) 14 mg TOPICAL DAILY@1000 [facility] Last Admin: 02/04/22 09:42 Dose: 14 mg Omeprazole (Omeprazole 20 Mg Capsule) 20 mg PO QDAY [facility] Last Admin: 02/04/22 09:38 Dose: 20 mg Ondansetron HCl (Ondansetron 4 Mg/2 Ml Vial) 4 mg IV Q4HP PRN; Protocol PRN Reason: Nausea And Vomiting Fluticasone/Salmeterol (Fluticasone/Salmeterol 250/50 Inhaler #14) 1 puff INH BID [facility] Last Admin: 02/04/22 09:31 Dose: Not Given Senna (Sennosides 1 Tablet) 2 tab PO HSP PRN PRN Reason: Constipation Sodium Chloride (0.9 % Sodium Chloride 10 Ml Syringe) 10 ml IV Q8 [facility] Last Admin: 02/04/22 05:24 Dose: 10 ml A/P Assessment and plan (1) Toxic metabolic encephalopathy: Status: Acute (2) UTI (urinary tract infection): Status: Acute Qualifiers: Encounter type: initial encounter Indwelling urinary catheter type: cystostomy catheter Urinary tract infection type: catheter-associated UTI Qualified Code(s): T83.510A - Infection and inflammatory reaction due to cystostomy catheter, initial encounter; N39.0 - Urinary tract infection, site not specified (3) Chronic pain: Status: Chronic (4) Hypertension: Status: Chronic (5) Hyponatremia: Status: Acute (6) End stage COPD: Status: Acute (7) Polypharmacy: Status: Acute Narrative A/P Narrative: At this point, the patient has multiple medical issues. Firstly, polypharmacy needs to be addressed and I am holding majority of her home sedatives. She would benefit from a cognitive evaluation with a MoCA. There are concerns that she may have a urinary tract infection as well and she is being empirically covered with ceftriaxone. Due to the patient's poor p.o. intake she likely has hypovolemic hyponatremia. We will trial normal saline IV fluid resuscitation. Her urine studies were not completely consistent with SIADH. Lastly, the patient has ongoing issues with her COPD and we will start duo nebs, Pulmicort and give her a dose of Solu-Medrol. 02/04: The patient's mentation is much improved. Her sodium is improving with IV fluids and is up to 126 today. Urine culture is pending and she will continue empiric ceftriaxone. The patient's home sedatives were held including tizanidi ne, gabapentin, lorazepam, Turlock. We will slowly introduce a low-dose lorazepam and Turlock. Polypharmacy should be addressed by her PCP. She does have end- stage COPD and has been started on duo nebs, Pulmicort and prednisone today. Her breathing is much easier today. It is unclear if she can look after herself at home with her end-stage COPD and risk for CO2 retention and poor p.o. intake as she is on several sedatives putting her at high risk for somnolence and falls. Time Spent With Patient Time: Total time spent is greater than 50% in coordination of care (as documented) at patient's floor/unit and/or counseling patient: Total time spent with greater than 50% in coordination of care (as documented) at patient's floor/unit and/or counseling patient:: 35 - 50 minutes QUALITY VTE Deep Vein Thrombosis/Pulmonary Embolism Present on Admission: No
[2022-02-04] MEDS ORDERED: POTASSIUM CHLORIDE 20 MEQ TABLET PO SCH (12:50)
[2022-02-04] MEDS ORDERED: POTASSIUM CHLORIDE 20 MEQ TABLET PO PRN (12:52)
[2022-02-04] MEDS: HYDROcodone/APAP 10/325MG TABLET PO PRN ×2 (12:56→17:35)
[2022-02-04] MEDS ORDERED: predniSONE 20 MG TABLET PO SCH (13:10)
[2022-02-04] MEDS: LORazepam 1 MG TABLET PO SCH (21:52)
[2022-02-05 07:05] LABS: Blood Urea Nitrogen 10 mg/dL (8-23); Calcium 8.2 mg/dL (8.6-10.4); Carbon Dioxide 33 mmol/L (22-30); Chloride 90 mmol/L (96-108); Glomerular Filtration Rate 122; Glucose 91 mg/dL (70-105)
[2022-02-05] MEDS: IPRATROPIUM/ALBUTEROL 3 ML AMPUL.NEB NEB SCH ×4 (07:22→19:49)
[2022-02-05] MEDS: 0.9 % SODIUM CHLORIDE 10 ML SYRINGE IV SCH ×3 (07:22→21:36)
[2022-02-05] MEDS: BUDESONIDE 0.5 MG/2 ML AMPUL.NEB NEB SCH ×2 (07:31→19:49)
--- NOTE | 2022-02-05 07:33 | Internal Med Progress Note ---
SUBJECTIVE Subjective Patient information: Note initiated : 02/05/22 at 7:31 am Service Date, if different from initiated Date: [] Patient: Dorcas Velasquez 61 y/o F admitted on 02/03/22 for confused. Chief Complaint: [ALOC] Principal diagnosis: Acute hyponatremia, polypharmacy Interval history: The patient is resting comfortably in bed. She has no active complaints or concerns today. Constitutional Vitals: Vital Signs Temp Pulse Resp BP Pulse Ox O2 Del Method O2 Flow Rate 97.6 F 81 13 130/72 100 2 02/05/22 04:01 02/05/22 06:01 02/05/22 06:01 02/05/22 06:01 02/05/22 06:01 02/05/22 02:00 02/05/22 06:01 Period Temp Pulse Resp BP Sys/Robles Pulse Ox O2 Del Method O2 Flow Rate Last 24 Hr 97.6 F-99.6 F 80-111 11-25 120-172/69-127 88-100 Nasal Cannula-Nasal Cannula 2-4 Intake and Output 02/04/22 02/05/22 02/05/22 21:59 05:59 13:59 Intake Total 1240 Output Total 800 840 Balance -800 400 Weight 69.938 kg Intake & Output: Intake & Output 02/04/22 02/05/22 02/05/22 21:59 05:59 13:59 Intake Total 1240 Output Total 800 840 Balance -800 400 Weight 69.938 kg Intake: IV 1000 Sodium Chloride 0.9% 1,000 ml @ 1000 100 mls/hr IV .Q10H [facility] Rx#: [id number] Oral 240 Output: Urine Catheter Amount 800 840 Other: Urine Appearance Clear Clear Suprapubic Clear Urine Color Bright Yellow Bright Yellow Suprapubic Bright Yellow Urine Odor Normal Head Head exam: Present atraumatic and normal inspection Eye Eye exam: Present normal appearance ENT ENT exam: Present mucous membranes moist, normal exam and normal external ear exam Neck Neck exam: Present normal inspection Respiratory Respiratory exam: Present decreased breath sounds Cardiovascular Cardiovascular exam: Present normal rate and rhythm GI/Abdominal GI/Abdominal exam: Present normal bowel sounds Back Exam Back exam: Present normal inspection Neurological Exam Neurological exam: Present alert and oriented X3 Skin Skin exam: Present intact and warm OBJ DATA Labs CBC & Chem 7: 02/04/22 05:13 02/05/22 05:24 Labs: Abnormal Lab Results 02/05/22 02/04/22 02/04/22 05:24 05:16 05:13 MCH RDW 10.0 L Neut % (Auto) Lymph % (Auto) 11.4 L Davie % (Auto) 15.9 H Lymph # (Auto) 0.85 L Davie # (Auto) 1.18 H D-Dimer POC VBG pCO2 at Temp POC VBG pO2 POC VBG HCO3 POC VBG Total CO2 POC Venous O2 Sat POC VBG Base Excess POC Sodium Sodium 130 L 126 L Potassium 3.1 L POC Chloride Chloride 90 L 85 L Carbon Dioxide 33 H POC Total CO2 Anion Gap 7.0 L Creatinine 0.3 L 0.4 L POC Creatinine Glucose 159 H POC Glucose Osmolality Calcium 8.2 L POC WB Ioniz Calcium AST Urine Appearance Urine Protein Urine Ketones Ur Leukocyte Esterase Urine RBC Urine WBC Urine Bacteria Urine Mucus 02/03/22 02/03/22 02/03/22 20:31 14:34 09:09 [facility] RDW Neut % (Auto) Lymph % (Auto) Davie % (Auto) Lymph # (Auto) Davie # (Auto) D-Dimer POC VBG pCO2 at Temp POC VBG pO2 POC VBG HCO3 POC VBG Total CO2 POC Venous O2 Sat POC VBG Base Excess POC Sodium Sodium 123 L 121 L 120 L Potassium POC Chloride Chloride 81 L 80 L 77 L Carbon Dioxide 31 H 37 H 36 H POC Total CO2 Anion Gap 4.0 L 7.0 L Creatinine 0.4 L 0.5 L 0.4 L POC Creatinine Glucose 164 H 146 H 181 H POC Glucose Osmolality Calcium 8.5 L POC WB Ioniz Calcium AST Urine Appearance Urine Protein Urine Ketones Ur Leukocyte Esterase Urine RBC Urine WBC Urine Bacteria Urine Mucus 02/03/22 02/03/22 02/02/22 01:36 01:31 23:38 [facility] RDW Neut % (Auto) Lymph % (Auto) Davie % (Auto) Lymph # (Auto) Davie # (Auto) D-Dimer POC VBG pCO2 at Temp 56.7 H POC VBG pO2 158 H POC VBG HCO3 35.3 H POC VBG Total CO2 37.0 H POC Venous O2 Sat 99.0 H POC VBG Base Excess 11.0 H* POC Sodium 118 L* Sodium Potassium POC Chloride 75 L Chloride Carbon Dioxide POC Total CO2 32.0 H Anion Gap Creatinine POC Creatinine 0.4 L Glucose POC Glucose 142 H Osmolality 249 L Calcium POC WB Ioniz Calcium 1.07 L AST Urine Appearance Urine Protein Urine Ketones Ur Leukocyte Esterase Urine RBC Urine WBC Urine Bacteria Urine Mucus 02/02/22 02/02/22 02/02/22 23:38 23:38 23:38 MCHC 36.7 H RDW 9.7 L Neut % (Auto) 82.3 H Lymph % (Auto) 10.5 L Davie % (Auto) Lymph # (Auto) 1.01 L Davie # (Auto) D-Dimer < 0.27 L POC VBG pCO2 at Temp POC VBG pO2 POC VBG HCO3 POC VBG Total CO2 POC Venous O2 Sat POC VBG Base Excess POC Sodium Sodium 117 L* Potassium POC Chloride Chloride 71 L Carbon Dioxide 32 H POC Total CO2 Anion Gap Creatinine 0.5 L POC Creatinine Glucose 179 H POC Glucose Osmolality Calcium POC WB Ioniz Calcium AST 32 H Urine Appearance Urine Protein Urine Ketones Ur Leukocyte Esterase Urine RBC Urine WBC Urine Bacteria Urine Mucus 02/02/22 23:30 MCHC RDW Neut % (Auto) Lymph % (Auto) Davie % (Auto) Lymph # (Auto) Davie # (Auto) D-Dimer POC VBG pCO2 at Temp POC VBG pO2 POC VBG HCO3 POC VBG Total CO2 POC Venous O2 Sat POC VBG Base Excess POC Sodium Sodium Potassium POC Chloride Chloride Carbon Dioxide POC Total CO2 Anion Gap Creatinine POC Creatinine Glucose POC Glucose Osmolality Calcium POC WB Ioniz Calcium AST Urine Appearance Cloudy A Urine Protein >=500 A Urine Ketones 80 A Ur Leukocyte Esterase 500 A Urine RBC 12 H Urine WBC 97 H Urine Bacteria Few A Urine Mucus Many A Meds: Medications Acetaminophen (Acetaminophen 325 Mg Tablet) 650 mg PO Q6HP PRN; Protocol PRN Reason: Per Pain Protocol/Fever > 101 Last Admin: 02/04/22 01:13 Dose: 650 mg Hydrocodone Bitart/Acetaminophen (Hydrocodone/Apap 10/325mg Tablet) 1 tab PO Q4H PRN; Protocol PRN Reason: Pain Last Admin: 02/04/22 17:35 Dose: 1 tab Albuterol Sulfate (Albuterol Sulfate 200 Puff Inhaler) 2 puff INH Q2-4HP PRN PRN Reason: Respiratory Distress Albuterol/Ipratropium (Ipratropium/Albuterol 3 Ml Ampul.Neb) 3 ml NEB Q6HRT [facility] Last Admin: 02/05/22 07:22 Dose: Not Given Amlodipine Besylate (Amlodipine 10 Mg Tablet) 10 mg PO DAILY [facility] Last Admin: 02/04/22 09:38 Dose: 10 mg Budesonide (Budesonide 0.5 Mg/2 Ml Ampul.Neb) 0.5 mg NEB Q12 [facility] Last Admin: 02/04/22 20:07 Dose: 0.5 mg Ceftriaxone Sodium (Ceftriaxone 1 Gm Vial) 1 gm IV Q24H [facility] Last Admin: 02/04/22 09:39 Dose: 1 gm Docusate Sodium (Docusate Sodium 100 Mg Capsule) 100 mg PO BID [facility] Last Admin: 02/04/22 20:01 Dose: Not Given Enoxaparin Sodium (Enoxaparin 40 Mg/0.4 Ml Syringe) 40 mg SQ DAILY [facility] Last Admin: 02/04/22 09:38 Dose: 40 mg Escitalopram Oxalate (Escitalopram 10 Mg Tablet) 5 mg PO QDAY [facility] Last Admin: 02/04/22 09:38 Dose: 5 mg Sodium Chloride (Sodium Chloride 0.9%) 1,000 mls @ 100 mls/hr IV .Q10H [facility] Last Admin: 02/04/22 23:38 Dose: 100 mls/hr Lactulose (Lactulose 20 Gm/30 Ml Oral.Emilie) 10 gm PO DAILYP PRN PRN Reason: Constipation Lorazepam (Lorazepam 1 Mg Tablet) 1 mg PO BID [facility] Last Admin: 02/04/22 21:52 Dose: 1 mg Metoprolol Tartrate (Metoprolol Tartrate 5 Mg/5 Ml Vial) 5 mg IV Q4HP PRN PRN Reason: Tachyarrhythmias Last Admin: 02/04/22 06:36 Dose: 5 mg Nicotine (Nicotine 14 Mg Patch) 14 mg TOPICAL DAILY@1000 [facility] Last Admin: 02/04/22 09:42 Dose: 14 mg Omeprazole (Omeprazole 20 Mg Capsule) 20 mg PO QDAY [facility] Last Admin: 02/04/22 09:38 Dose: 20 mg Ondansetron HCl (Ondansetron 4 Mg/2 Ml Vial) 4 mg IV Q4HP PRN; Protocol PRN Reason: Nausea And Vomiting Potassium Chloride (Potassium Chloride 20 Meq Tablet) 40 meq PO DAILY PRN PRN Reason: hypokalemia Prednisone (Prednisone 20 Mg Tablet) 40 mg PO [facility] Fluticasone/Salmeterol (Fluticasone/Salmeterol 250/50 Inhaler #14) 1 puff INH BID [facility] Last Admin: 02/04/22 20:00 Dose: Not Given Senna (Sennosides 1 Tablet) 2 tab PO HSP PRN PRN Reason: Constipation Sodium Chloride (0.9 % Sodium Chloride 10 Ml Syringe) 10 ml IV Q8 [facility] Last Admin: 02/05/22 07:22 Dose: Not Given A/P Assessment and plan (1) Toxic metabolic encephalopathy: Status: Acute (2) UTI (urinary tract infection): Status: Acute Qualifiers: Encounter type: initial encounter Indwelling urinary catheter type: cystostomy catheter Urinary tract infection type: catheter-associated UTI Q ualified Code(s): T83.510A - Infection and inflammatory reaction due to cystostomy catheter, initial encounter; N39.0 - Urinary tract infection, site not specified (3) Chronic pain: Status: Chronic (4) Hypertension: Status: Chronic (5) Hyponatremia: Status: Acute (6) End stage COPD: Status: Acute (7) Polypharmacy: Status: Acute Narrative A/P Narrative: At this point, the patient has multiple medical issues. Firstly, polypharmacy needs to be addressed and I am holding majority of her home sedatives. She w ould benefit from a cognitive evaluation with a MoCA. There are concerns that she may have a urinary tract infection as well and she is being empirically covered with ceftriaxone. Due to the patient's poor p.o. intake she likely has hypovolemic hyponatremia. We will trial normal saline IV fluid resuscitation. Her urine studies were not completely consistent with SIADH. Lastly, the patient has ongoing issues with her COPD and we will start duo nebs, Pulmicort and give her a dose of Solu-Medrol. 02/04: The patient's mentation is much improved. Her sodium is improving with IV fluids and is up to 126 today. Urine culture is pending and she will continue empiric ceftriaxone. The patient's home sedatives were held including tizanidine, gabapentin, lorazepam, [place]. We will slowly introduce a low-dose lorazepam and [place]. Polypharmacy should be addressed by her PCP. She does have end-stage COPD and has been started on duo nebs, Pulmicort and prednisone today. Her breathing is much easier today. It is unclear if she can look after herself at home with her end-stage COPD and risk for CO2 retention and poor p.o. intake as she is on several sedatives putting her at high risk for somnolence and falls. 02/05: The patient's hyponatremia is now resolved as her sodium is 130. Urine culture was positive for gram-negative bacillus and she has been maintained on ceftriaxone. Social work and case management will have to work on disposition as there is a concern that she is not able to look after herself at home in the setting of polypharmacy and end-stage COPD. Continue duo nebs, Pulmicort, prednisone and supplemental O2. Time Spent With Patient Time: Total time spent is greater than 50% in coordination of care (as documented) at patient's floor/unit and/or counseling patient: Total time spent with greater than 50% in coordination of care (as documented) at patient's floor/unit and/or counseling patient:: 25 - 35 minutes QUALITY VTE Deep Vein Thrombosis/Pulmonary Embolism Present on Admission: No
[2022-02-05] MEDS: LORazepam 1 MG TABLET PO SCH ×2 (08:03→21:18)
[2022-02-05] MEDS: ENOXAPARIN 40 MG/0.4 ML SYRINGE SQ SCH (08:03)
[2022-02-05] MEDS: OMEPRAZOLE 20 MG CAPSULE PO SCH (08:03)
[2022-02-05] MEDS: amLODIPine 10 MG TABLET PO SCH (08:03)
[2022-02-05] MEDS: ESCITALOPRAM 10 MG TABLET PO SCH (08:03)
[2022-02-05] MEDS: predniSONE 20 MG TABLET PO SCH (09:04)
[2022-02-05] MEDS: FLUTICASONE/SALMETEROL 250/50 INHALER #14 INH SCH ×2 (09:05→21:35)
[2022-02-05] MEDS: cefTRIAXone 1 GM VIAL IV SCH (09:05)
[2022-02-05] MEDS: DOCUSATE SODIUM 100 MG CAPSULE PO SCH ×2 (09:05→21:35)
[2022-02-05] MEDS: 0.9 % SODIUM CHLORIDE 1,000 ML IV SCH ×2 (09:45→21:36)
[2022-02-05] MEDS: NICOTINE 14 MG PATCH TOPICAL SCH (12:02)
[2022-02-05] MEDS: HYDROcodone/APAP 10/325MG TABLET PO PRN (16:35)
[2022-02-05] MEDS ORDERED: MAGNESIUM SULFATE 2 GM/50 ML BAG IV ONE ×2 (18:10→19:25)
[2022-02-05] MEDS: ACETAMINOPHEN 325 MG TABLET PO PRN (19:21)
[2022-02-06] MEDS: IPRATROPIUM/ALBUTEROL 3 ML AMPUL.NEB NEB SCH ×4 (01:02→18:47)
[2022-02-06] MEDS: HYDROcodone/APAP 10/325MG TABLET PO PRN ×3 (06:20→21:07)
[2022-02-06 06:59] LABS: Basophils # (Auto) 0 K/mcL (0.00-0.30); Basophils % (Auto) 0 % (0.0-2.0); Eosinophils # (Auto) 0.06 K/mcL (0.00-0.70); Eosinophils % (Auto) 0.9 % (0.0-7.0); Hematocrit 32.7 % (34.1-44.9); Hemoglobin 11.3 g/dL (11.2-15.7); Lymphocytes # (Auto) 2.29 K/mcL (1.50-4.80); Lymphocytes % (Auto) 34.8 % (15.5-49.0); Mean Corpuscular HGB Conc 34.6 g/dL (31.0-36.0); Mean Platelet Volume 8.8 fL (7.4-10.4); Monocytes # (Auto) 0.89 K/mcL (0.10-0.90); Monocytes % (Auto) 13.5 % (1.0-12.0); Neutrophils % (Auto) 50.5 % (38.0-78.0); Platelet Count 221 K/mcL (140-440); RBC 3.48 M/mcL (3.59-5.38); Red Cell Distribution Width 10.3 % (11.5-14.5); WBC 6.6 K/mcL (4.5-11.0)
[2022-02-06 07:25] LABS: ALT/SGPT 17 U/L (<40); AST/SGOT 19 U/L (<32); Albumin 3.4 gm/dL (3.2-5.2); Albumin/Globulin Ratio 1.6 (1.0-2.3); Alkaline Phosphatase 37 U/L (39-117); Bilirubin,Direct < 0.2 mg/dL (0-0.3); Bilirubin,Total 0.2 mg/dL (0.1-1.0); Blood Urea Nitrogen 5 mg/dL (8-23); Calcium 8.3 mg/dL (8.6-10.4); Carbon Dioxide 38 mmol/L (22-30); Chloride 85 mmol/L (96-108); Globulin 2.1 gm/dL (2.2-3.7); Glomerular Filtration Rate 122; Glucose 86 mg/dL (70-105); Lactate Dehydrogenase 195 U/L (135-225); Phosphorous 2.5 mg/dL (2.5-4.5); Triglycerides 54 mg/dL (<150); Uric Acid 1.6 mg/dL (2.5-8.0)
[2022-02-06] MEDS: 0.9 % SODIUM CHLORIDE 10 ML SYRINGE IV SCH ×3 (08:04→21:07)
[2022-02-06] MEDS: BUDESONIDE 0.5 MG/2 ML AMPUL.NEB NEB SCH ×3 (08:04→22:52)
[2022-02-06] MEDS: 0.9 % SODIUM CHLORIDE 1,000 ML IV SCH (08:05)
[2022-02-06] MEDS: FLUTICASONE/SALMETEROL 250/50 INHALER #14 INH SCH ×2 (08:05→20:27)
[2022-02-06] MEDS: DOCUSATE SODIUM 100 MG CAPSULE PO SCH ×2 (08:06→20:27)
[2022-02-06] MEDS: ESCITALOPRAM 10 MG TABLET PO SCH (08:11)
[2022-02-06] MEDS: predniSONE 20 MG TABLET PO SCH (08:11)
[2022-02-06] MEDS: LACTOBACILLUS 1 CAPSULE PO SCH (08:11)
[2022-02-06] MEDS: LORazepam 1 MG TABLET PO SCH ×2 (08:12→20:26)
[2022-02-06] MEDS: OMEPRAZOLE 20 MG CAPSULE PO SCH (08:12)
[2022-02-06] MEDS: amLODIPine 10 MG TABLET PO SCH (08:12)
[2022-02-06] MEDS: ENOXAPARIN 40 MG/0.4 ML SYRINGE SQ SCH (08:12)
[2022-02-06] MEDS: cefTRIAXone 1 GM VIAL IV SCH (08:18)
[2022-02-06] MEDS ORDERED: POTASSIUM CHLORIDE 20 MEQ TABLET PO ONE ×2 (09:07→12:00)
[2022-02-06] MEDS: NICOTINE 14 MG PATCH TOPICAL SCH (09:27)
[2022-02-06] MEDS: LORazepam 2 MG/ML VIAL IV PRN (11:25)
--- NOTE | 2022-02-06 11:31 | XRay Report ---
INDICATION: Hypoxia/Dyspnea TECHNIQUE: AP portable upright chest x-ray COMPARISON: Previous chest x-ray dated 02/02/2022, chest CT scan dated to 02/03/2022 FINDINGS: Lungs:Driscoll lobar emphysema. No acute pulmonary parenchymal infiltrate. No pulmonary parenchymal mass. Heart, vascular:No significant cardiomegaly. Pulmonary vascularity is normal. No pulmonary edema or pulmonary congestion Mediastinum, stone:No mediastinal widening. No hilar mass Pleura:No pleural fluid. No pleural-based mass or calcification Skeletal:Negative. IMPRESSION: 1. Emphysema 2. No acute or focal abnormality. No interval change since 02/02/2022 Interpreted and Authenticated by: Marck Sanchez 02/06/22
--- NOTE | 2022-02-06 11:34 | Internal Med Progress Note ---
SUBJECTIVE Subjective Patient information: Note initiated : 02/06/22 at 11:32 am Service Date, if different from initiated Date: [] Patient: Dorcas Velasquez 61 y/o F admitted on 02/03/22 for confused. Chief Complaint: [] Principal diagnosis: Acute hyponatremia, polypharmacy Interval history: At this point, the patient has multiple medical issues. Firstly, polypharmacy needs to be addressed and I am holding majority of her home sedatives. She would benefit from a cognitive evaluation with a MoCA. There are concerns that she may have a urinary tract infection as well and she is being empirically covered with ceftriaxone. Due to the patient's poor p.o. intake she likely has hypovolemic hyponatremia. We will trial normal saline IV fluid resuscitation. Her urine studies were not completely consistent with SIADH. Lastly, the patient has ongoing issues with her COPD and we will start duo nebs, Pulmicort and give her a dose of Solu-Medrol. 02/04: The patient's mentation is much improved. Her sodium is improving with IV fluids and is up to 126 today. Urine culture is pending and she will continue empiric ceftriaxone. The patient's home sedatives were held including tizanidine, gabapentin, lorazepam, [place]. We will slowly introduce a low-dose lorazepam and [place]. Polypharmacy should be addressed by her PCP. She does have end-stage COPD and has been started on duo nebs, Pulmicort and prednisone today. Her breathing is much easier today. It is unclear if she can look after herself at home with her end-stage COPD and risk for CO2 retention and poor p.o. intake as she is on several sedatives putting her at high risk for somnolence and falls. 02/05: The patient's hyponatremia is now resolved as her sodium is 130. Urine culture was positive for gram-negative bacillus and she has been maintained on ceftriaxone. Social work and case management will have to work on disposition as there is a concern that she is not able to look after herself at home in the setting of polypharmacy and end-stage COPD. Continue duo nebs, Pulmicort, prednisone and supplemental O2. 02/06- 02/06-patient seen in room. Extremely anxious this morning. Overnight self diuresing, complains of leaking around suprapubic catheter and wants to see urologist Dr. Esparza. patient unsure when the catheter was changed. Nurse expressed concern about patient hyperventilating with sats around 90s. Stat chest x-ray, anxiolytic. Mentation clinically improved. Sodium 128, potassium 3.1 on replacement,Urine culture Serratia multidrug-resistant sensitive to quinolone Constitutional Vitals: Vital Signs Temp Pulse Resp BP Pulse Ox O2 Del Method O2 Flow Rate 98.3 F 98 H 17 158/106 95 1.5 02/06/22 08:01 02/06/22 08:01 02/06/22 08:01 02/06/22 08:01 02/06/22 08:01 02/06/22 07:58 02/06/22 08:01 Period Temp Pulse Resp BP Sys/Robles Pulse Ox O2 Del Method O2 Flow Rate Last 24 Hr 97.2 F-99.1 F 35-102 14-28 113-159/65-106 91-100 Nasal Cannula-Nasal Cannula 1-2 Intake and Output 02/05/22 02/06/22 02/06/22 21:59 05:59 13:59 Intake Total 1890 1837 Output Total 2560 2851 400 Balance -670 -2851 1437 Weight 71.486 kg Alert and respond to commands Very anxious Nonlabored breathing No lymphedema Suprapubic catheter draining clear urine Intake & Output: Intake & Output 02/05/22 02/06/22 02/06/22 21:59 05:59 13:59 Intake Total 1890 1837 Output Total 2560 2851 400 Balance -670 -2851 1437 Weight 71.486 kg Intake: IV 1050 1117 Sodium Chloride 0.9% 1,000 ml @ 1000 1117 100 mls/hr IV .Q10H KAYA Rx#: [id number] Oral 840 720 Output: Urine Catheter Amount 2560 2850 400 # of times incontinent of urine 1 Other: Meal Dinner Breakfast Percent of Meal Consumed 25% 75% Feeding Ability Independent Assist with Tray Set Up Urine Appearance Clear Clear Cloudy Suprapubic Cloudy Urine Color Pale Pale Pale Suprapubic Pale Urine Odor Normal Normal Normal OBJ DATA Labs CBC & Chem 7: 02/06/22 05:44 02/06/22 05:44 Labs: Abnormal Lab Results 02/06/22 02/06/22 02/05/22 05:44 05:44 05:24 RBC 3.48 L Hct 32.7 L RDW 10.3 L Lymph % (Auto) [place] % (Auto) 13.5 H Lymph # (Auto) [place] # (Auto) Sodium 128 L 130 L Potassium 3.1 L Chloride 85 L 90 L Carbon Dioxide 38 H 33 H Anion Gap 5.0 L 7.0 L BUN 5 L Creatinine 0.3 L 0.3 L Glucose Uric Acid 1.6 L Calcium 8.3 L 8.2 L Alkaline Phosphatase 37 L Total Protein 5.5 L Globulin 2.1 L 02/04/22 02/04/22 02/03/22 05:16 05:13 20:31 RBC Hct RDW 10.0 L Lymph % (Auto) 11.4 L [place] % (Auto) 15.9 H Lymph # (Auto) 0.85 L [place] # (Auto) 1.18 H Sodium 126 L 123 L Potassium 3.1 L Chloride 85 L 81 L Carbon Dioxide 31 H Anion Gap BUN Creatinine 0.4 L 0.4 L Glucose 159 H 164 H Uric Acid Calcium 8.5 L Alkaline Phosphatase Total Protein Globulin 02/03/22 02/03/22 14:34 09:09 RBC Hct RDW Lymph % (Auto) [place] % (Auto) Lymph # (Auto) [place] # (Auto) Sodium 121 L 120 L Potassium Chloride 80 L 77 L Carbon Dioxide 37 H 36 H Anion Gap 4.0 L 7.0 L BUN Creatinine 0.5 L 0.4 L Glucose 146 H 181 H Uric Acid Calcium Alkaline Phosphatase Total Protein Globulin Meds: Medications Acetaminophen (Acetaminophen 325 Mg Tablet) 650 mg PO Q6HP PRN; Protocol PRN Reason: Per Pain Protocol/Fever > 101 Last Admin: 02/05/22 19:21 Dose: 650 mg Hydrocodone Bitart/Acetaminophen (Hydrocodone/Apap 10/325mg Tablet) 1 tab PO Q4H PRN; Protocol PRN Reason: Pain Last Admin: 02/06/22 11:25 Dose: 1 tab Albuterol Sulfate (Albuterol Sulfate 200 Puff Inhaler) 2 puff INH Q2-4HP PRN PRN Reason: Respiratory Distress Albuterol/Ipratropium (Ipratropium/Albuterol 3 Ml Ampul.Neb) 3 ml NEB Q6HRT KAYA Last Admin: 02/06/22 08:04 Dose: 3 ml Amlodipine Besylate (Amlodipine 10 Mg Tablet) 10 mg PO DAILY [facility] Last Admin: 02/06/22 08:12 Dose: 10 mg Budesonide (Budesonide 0.5 Mg/2 Ml Ampul.Neb) 0.5 mg NEB Q12 [facility] Last Admin: 02/06/22 08:04 Dose: 0.5 mg Ceftriaxone Sodium (Ceftriaxone 1 Gm Vial) 1 gm IV Q24H [facility] Last Admin: 02/06/22 08:18 Dose: 1 gm Docusate Sodium (Docusate Sodium 100 Mg Capsule) 100 mg PO BID [facility] Last Admin: 02/06/22 08:06 Dose: Not Given Enoxaparin Sodium (Enoxaparin 40 Mg/0.4 Ml Syringe) 40 mg SQ DAILY [facility] Last Admin: 02/06/22 08:12 Dose: 40 mg Escitalopram Oxalate (Escitalopram 10 Mg Tablet) 5 mg PO QDAY [facility] Last Admin: 02/06/22 08:11 Dose: 5 mg Lactobacillus Rhamnosus (Lactobacillus 1 Capsule) 1 cap PO DAILY [facility] Last Admin: 02/06/22 08:11 Dose: 1 cap Lactulose (Lactulose 20 Gm/30 Ml Oral.Emilie) 10 gm PO DAILYP PRN PRN Reason: Constipation Lorazepam (Lorazepam 1 Mg Tablet) 1 mg PO BID [facility] Last Admin: 02/06/22 08:12 Dose: 1 mg Lorazepam (Lorazepam 2 Mg/Ml Vial) 1 mg IV BID PRN PRN Reason: Anxiety Last Admin: 02/06/22 11:25 Dose: 1 mg Metoprolol Tartrate (Metoprolol Tartrate 5 Mg/5 Ml Vial) 5 mg IV Q4HP PRN PRN Reason: Tachyarrhythmias Last Admin: 02/04/22 06:36 Dose: 5 mg Nicotine (Nicotine 14 Mg Patch) 14 mg TOPICAL DAILY@1000 [facility] Last Admin: 02/06/22 09:27 Dose: 14 mg Omeprazole (Omeprazole 20 Mg Capsule) 20 mg PO QDAY [facility] Last Admin: 02/06/22 08:12 Dose: 20 mg Ondansetron HCl (Ondansetron 4 Mg/2 Ml Vial) 4 mg IV Q4HP PRN; Protocol PRN Reason: Nausea And Vomiting Potassium Chloride (Potassium Chloride 20 Meq Tablet) 40 meq PO DAILY PRN PRN Reason: hypokalemia Potassium Chloride (Potassium Chloride 20 Meq Tablet) 40 meq PO ONCE ONE Stop: 02/06/22 12:01 Prednisone (Pred[facility]one 20 Mg Tablet) [facility] Admin: 02/06/22 08:11 Dose: 40 mg Fluticasone/Salmeterol (Fluticasone/Salmeterol 250/50 Inhaler #14) 1 puff INH BID [facility] Last Admin: 02/06/22 08:05 Dose: Not Given Senna (Sennosides 1 Tablet) 2 tab PO HSP PRN PRN Reason: Constipation Sodium Chloride (0.9 % Sodium Chloride 10 Ml Syringe) 10 ml IV Q8 [facility] Last Admin: 02/06/22 08:04 Dose: 10 ml A/P Narrative A/P Narrative: * Complicated hardware related UTI secondary to Serratia multidrug-resistant. * Severe anxiety on escitalopram/benzodiazepine/doxepin * Hypokalemia on replacement * Hyponatremia gradually improving * Hypertension * Advanced COPD on home oxygen/bronchodilators * GERD on PPI * Neurogenic bladder and suprapubic catheter, urology consult for catheter leakage Plan * Switch to quinolone in light of resistance to cephalosporin * Pre-existing medical condition management as above * PT OT/nutrition support * Case management to coordinate SNF placement Time Spent With Patient Time: Total time spent is greater than 50% in coordination of care (as documented) at patient's floor/unit and/or counseling patient: Total time spent with greater than 50% in coordination of care (as documented) at patient's floor/unit and/or counseling patient:: 25 - 35 minutes QUALITY VTE Deep Vein Thrombosis/Pulmonary Embolism Present on Admission: No
[2022-02-06] MEDS: OXYBUTYNIN CHLORIDE 5 MG TAB.XL.24H PO SCH ×3 (12:42→21:06)
--- NOTE | 2022-02-06 14:49 | Urology Consult Note ---
HPI Data of Consult Patient: known to practice within the last 3 years Consult date: 02/06/22 Requesting physician: Doc Wong Primary Care Provider: GIORGI Lopez Consult Narrative Chief complaint: Urinary incontinence despite suprapubic catheter Reason for consult: Urinary incontinence despite suprapubic catheter History of present illness: Dorcas is a 61-year-old woman who was initially seen in my office on April 24, 2020. She has a history of a neurogenic bladder with a suprapubic catheter in place. The catheter is exchanged in the office monthly. She keeps the catheter plugged using a catheter plug. She has been having increasing difficulty with drainage through the catheter and with the catheter becoming clogged with sediment. She also reports that she has had multiple urinary tract infections. She was admitted to the hospital for alteration in her mental status and hyponatremia. Her catheter was last exchanged in my office on January 29. Complains that she is having a significant amount of urine output and that a large amount of it is coming through the urethra rather than draining through the suprapubic catheter.. 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) Low back pain (Chronic) Menopausal syndrome (Chronic 04/18/13) Migraine (Chronic) Osteoporosis (Chronic 06/15/13) Peripheral neuropathy (Chronic 09/12/13) Psoriasis (Chronic) Allergic rhinitis (Chronic) Vitamin B 12 deficiency (Chronic 09/12/13) Hypertension (Chronic) Spasm of back muscles (Chronic) Vitamin D deficiency (Chronic) Hypomagnesemia (Chronic) Muscle cramps (Chronic) Lumbar back pain with radiculopathy affecting left lower extremity (Chronic) Abnormal weight loss (Acute) Neurogenic bladder (Chronic) Ovarian mass (Chronic) Acute retention of urine (Chronic) Degenerative disc disease (Chronic) Chronic pain syndrome (Chronic) History of surgery (Chronic ~2012) History of mandibular surgery (Acute) Chronic suprapubic catheter (Acute) Suprapubic catheter dysfunction (Acute) Encounter for suprapubic catheter care (Acute) Current smoker (Acute) Acute exacerbation of chronic obstructive pulmonary disease (COPD) (Acute) Acute hypoxemic respiratory failure (Acute) Asthma exacerbation (Acute) Hyponatremia (Acute) Medical History (Updated 02/06/22 @ 14:47 by Elliot Esparza MD) Acute retention of urine Alcohol abuse, in remission Allergic rhinitis Anemia Angioedema (09/19/14) Anxiety disorder Arthropathy Asthma Breast pain (04/18/13) Capsular contracture of breast implant (04/18/13) Chronic pain Chronic pain syndrome Degenerative disc disease Depression Edema Encounter for routine gynecological examination (04/18/13) Family history of diabetes mellitus (03/16/13) Fatigue Gastric ulcer, chronic (08/23/11) [facility] Dr. Cooper did an exploratory laparotomy with enterotomy and oversew of bleeding duodenal ulcer converted to Bilroth II partial gastric resection with gastrojejunostomy Gastroesophageal reflux Hyperkalemia NOrmal now, Hypertension Hypokalemia (09/01/11) As in patient Hypomagnesemia longterm current use of anticoagulant Low back pain chr, refer to PT Menopausal syndrome (04/18/13) Migraine Muscle cramps Neurogenic bladder Osteoporosis (06/15/13) Calcium Vit D3 1,000 units Alendronate 70mg q weekly Ovarian mass Pain in joint christian knee pain, refer to PT Pain in joint, lower leg Peripheral neuropathy (09/12/13) Psoriasis Pulmonary embolism s/p treatment for 6 months Routine cervical smear (04/18/13) Spasm of back muscles chr issue, now has been flaring up, remote h/o trauma, notes used to use soma before, will give trial of cyclobenzapril 5mg tid. Spasm of back muscles Thrombosis/embolism, venous Tobacco abuse (12/14/13) still smoking advised to quit, counselled for 5 mins UTI (urinary tract infection) Vitamin B 12 deficiency (09/12/13) on 1,000mcg daily check b12 levels Vitamin D deficiency Surgical History History of breast augmentation (~1987) bilateral implants, with intracapsular leaks, but not extracapsular. History of colonoscopy done in jul 2011, while patient was inpatient for GI bleed. as per note in system, no abnormalities detected History of esophagogastroduodenoscopy (08/23/11) [facility] Dr. Cooper did an exploratory laparotomy with enterotomy and oversew of bleeding duodenal ulcer converted to Bilroth II partial gastric resection with gastrojejunostomy History of mandibular surgery History of surgery (~2011) Perforated ulcer; partial pancreas, partial liver, partial small intestine and partial stomach removal Family History Brother Alcohol abuse Grandfather Alcohol abuse Maternal Uncle Alcohol abuse Mother Alzheimer's disease Type 2 diabetes mellitus Manic affective disorder, recurrent episode, unspecified degree Diabetes mellitus Unknown No problems noted. Father Cardiac disease Malignant neoplasm of pancreas May have had but does not know details Schizophrenia Social History marital status: legally occupational status: disabled physical activity: none alcohol intake frequency: does not drink substance use type: marijuana additional history: Patient has a prescription for medical marijuana. MEDS/ALLERGIES Home Medications and Allergies Home Medications Medication Instructions Recorded Confirmed Type albuterol sulfate 90 mcg/actuation 2 puff inhalation Q4-6HP PRN 04/03/20 02/03/22 History aerosol inhaler (ProAir HFA) Respiratory Distress fluticasone propionate 50 1 spray intranasal Q12H PRN 04/03/20 02/03/22 History mcg/actuation nasal Congestion spray,suspension hydrocodone 10 mg-acetaminophen 1 tab PO Q4H PRN Pain 04/03/20 02/03/22 History 325 mg tablet ([place]) fluticasone 250 mcg-salmeterol 50 1 inh inhalation BID #60 ea 01/04/22 02/03/22 Rx mcg/dose blistr powdr for inhalation (Advair Diskus) gabapentin 400 mg capsule 400 mg PO TID #90 caps 01/04/22 02/03/22 Rx clonazepam 1 mg tablet 1 tab PO TID 02/03/22 02/03/22 History doxepin 50 mg capsule 1 cap PO HS 02/03/22 02/03/22 History escitalopram oxalate 10 mg tablet 1 tab PO QDAY 02/03/22 02/03/22 History escitalopram oxalate 5 mg tablet 1 tab PO QDAY 02/03/22 02/03/22 History lorazepam 1 mg tablet 1 tab PO BID 02/03/22 02/03/22 History omeprazole 20 mg capsule,delayed 1 cap PO QDAY PRN Heartburn 02/03/22 02/03/22 History release tizanidine 4 mg tablet 1 tab PO TID 02/03/22 02/03/22 History Allergies Allergy/AdvReac Type Severity Reaction Status Date / Time Sulfa (Sulfonamide Allergy Mild Rash Verified 01/29/22 15:57 Antibiotics) codeine AdvReac Mild Headache Verified 01/29/22 15:57 methylprednisolone AdvReac Mild Nausea Verified 01/29/22 15:57 Physical Examination Vital Signs Vital signs: Temp Pulse Resp BP Pulse Ox O2 Del Method O2 Flow Rate 98.6 F 95 H 18 146/89 98 2.5 02/06/22 12:01 02/06/22 13:19 02/06/22 13:19 02/06/22 12:01 02/06/22 13:19 02/06/22 13:19 02/06/22 13:19 General physical appearance General physical exam: well developed, well nourished and no distress Cardiovascular Cardiovascular exam IM: Present normal rate and rhythm Respiratory Respiratory exam: normal respiratory effort Genitourinary Genitourinary (Female): Present other (Suprapubic catheter is in place and draining well.) Results Labs Result diagrams: 02/06/22 05:44 02/06/22 05:44 Labs: Abnormal lab results 02/06/22 02/06/22 Range/Units 05:44 05:44 RBC 3.48 L (3.59-5.38) M/mcL Hct 32.7 L (34.1-44.9) % RDW 10.3 L (11.5-14.5) % [place] % (Auto) 13.5 H (1.0-12.0) % Sodium 128 L (133-145) mmol/L Potassium 3.1 L (3.3-5.1) mmol/L Chloride 85 L (96-108) mmol/L Carbon Dioxide 38 H (22-30) mmol/L Anion Gap 5.0 L (8.0-16.0) BUN 5 L (8-23) mg/dL Creatinine 0.3 L (0.6-1.1) mg/dL Uric Acid 1.6 L (2.5-8.0) mg/dL Calcium 8.3 L (8.6-10.4) mg/dL Alkaline Phosphatase 37 L (39-117) U/L Total Protein 5.5 L (5.9-8.4) gm/dL Globulin 2.1 L (2.2-3.7) gm/dL Diabetes panel 02/06/22 Range/Units 05:44 Sodium 128 L (133-145) mmol/L Potassium 3.1 L (3.3-5.1) mmol/L Chloride 85 L (96-108) mmol/L Carbon Dioxide 38 H (22-30) mmol/L BUN 5 L (8-23) mg/dL Creatinine 0.3 L (0.6-1.1) mg/dL Glucose 86 (70-105) mg/dL Calcium 8.3 L (8.6-10.4) mg/dL AST 19 (<32) U/L ALT 17 (<40) U/L Alkaline Phosphatase 37 L (39-117) U/L Total Protein 5.5 L (5.9-8.4) gm/dL Albumin 3.4 (3.2-5.2) gm/dL Triglycerides 54 (<150) mg/dL Calcium panel 02/06/22 Range/Units 05:44 Calcium 8.3 L (8.6-10.4) mg/dL Phosphorus 2.5 (2.5-4.5) mg/dL Albumin 3.4 (3.2-5.2) gm/dL Pituitary panel 02/06/22 Range/Units 05:44 Sodium 128 L (133-145) mmol/L Potassium 3.1 L (3.3-5.1) mmol/L Chloride 85 L (96-108) mmol/L Carbon Dioxide 38 H (22-30) mmol/L BUN 5 L (8-23) mg/dL Creatinine 0.3 L (0.6-1.1) mg/dL Glucose 86 (70-105) mg/dL Calcium 8.3 L (8.6-10.4) mg/dL Adrenal panel 02/06/22 Range/Units 05:44 Sodium 128 L (133-145) mmol/L Potassium 3.1 L (3.3-5.1) mmol/L Chloride 85 L (96-108) mmol/L Carbon Dioxide 38 H (22-30) mmol/L BUN 5 L (8-23) mg/dL Creatinine 0.3 L (0.6-1.1) mg/dL Glucose 86 (70-105) mg/dL Calcium 8.3 L (8.6-10.4) mg/dL Total Bilirubin 0.2 (0.1-1.0) mg/dL AST 19 (<32) U/L ALT 17 (<40) U/L Alkaline Phosphatase 37 L (39-117) U/L Total Protein 5.5 L (5.9-8.4) gm/dL Albumin 3.4 (3.2-5.2) gm/dL All other labs normal. A/P Assessment and plan (1) UTI (urinary tract infection): Status: Acute Qualifiers: Encounter type: initial encounter Indwelling urinary catheter type: cystostomy catheter Urinary tract infection type: catheter-associated UTI Qualified Code(s): T83.510A - Infection and inflammatory reaction due to cystostomy catheter, initial encounter; N39.0 - Urinary tract infection, site not specified (2) Urinary incontinence: Status: Acute Narrative A/P Narrative: Dorcas is a 61-year-old woman who is known to my office. She has a suprapubic catheter in place due to a urinary retention with a neurogenic bladder. The catheter was exchanged in my office monthly. Was last exchanged on January 29. She currently complains that she is having significant leakage from the urethra. The suprapubic catheter is, however, draining well. We discussed that urine takes the path of least resistance. If her bladder is full she may urinate from below or it may come through the suprapubic catheter. The urethra is, however, more dependent than the suprapubic catheter which is at the top of the bladder. We discussed that she may benefit from a medication to help relax the bladder. We discussed a trial of oxybutynin 5 mg, 1 tablet p.o. 3 times daily to see if this helps to relax the bladder which may decrease the leakage from below. If she does not like the side effects or if it does not help we will stop it. Time Spent With Patient Time: Total time spent is greater than 50% in coordination of care (as documented) at patient's floor/unit and/or counseling patient:
[2022-02-06 15:50] LABS: Appearance,Urine CLEAR (Clear); Bilirubin,Urine NEG (Negative); Color,Urine YELLOW; Culture Indicated,Urine No; Glucose,Urine (UA) 150 mg/dL (Negative); Ketones,Urine NEG (Negative); Leukocyte Esterase,Urine NEG /uL (Negative); Nitrate,Urine NEG (Negative); Protein,Urine NEG (Negative); Urine Blood NEG (Negative); Urobilinogen,Urine NEG
[2022-02-07] MEDS: HYDROcodone/APAP 10/325MG TABLET PO PRN (01:46)
[2022-02-07] MEDS: IPRATROPIUM/ALBUTEROL 3 ML AMPUL.NEB NEB SCH ×2 (01:48→08:06)
[2022-02-07] MEDS: 0.9 % SODIUM CHLORIDE 10 ML SYRINGE IV SCH (05:38)
[2022-02-07] MEDS: LORazepam 2 MG/ML VIAL IV PRN ×2 (06:32→11:53)
[2022-02-07 06:53] LABS: Basophils # (Auto) 0 K/mcL (0.00-0.30); Basophils % (Auto) 0 % (0.0-2.0); Eosinophils # (Auto) 0.07 K/mcL (0.00-0.70); Hematocrit 35.8 % (34.1-44.9); Hemoglobin 12.3 g/dL (11.2-15.7); Lymphocytes # (Auto) 2.75 K/mcL (1.50-4.80); Lymphocytes % (Auto) 40.4 % (15.5-49.0); Mean Cell Volume 94.5 fL (80.0-100.0); Mean Corpuscular HGB Conc 34.4 g/dL (31.0-36.0); Mean Platelet Volume 8.8 fL (7.4-10.4); Monocytes # (Auto) 0.83 K/mcL (0.10-0.90); Monocytes % (Auto) 12.2 % (1.0-12.0); Neutrophils % (Auto) 46.3 % (38.0-78.0); Platelet Count 241 K/mcL (140-440); RBC 3.79 M/mcL (3.59-5.38); Red Cell Distribution Width 10.3 % (11.5-14.5); WBC 6.8 K/mcL (4.5-11.0)
[2022-02-07] MEDS: FLUTICASONE/SALMETEROL 250/50 INHALER #14 INH SCH (08:04)
[2022-02-07] MEDS: BUDESONIDE 0.5 MG/2 ML AMPUL.NEB NEB SCH (08:06)
[2022-02-07] MEDS: ENOXAPARIN 40 MG/0.4 ML SYRINGE SQ SCH (08:29)
[2022-02-07] MEDS: OMEPRAZOLE 20 MG CAPSULE PO SCH (08:30)
[2022-02-07] MEDS: ESCITALOPRAM 10 MG TABLET PO SCH (08:30)
[2022-02-07] MEDS: DOCUSATE SODIUM 100 MG CAPSULE PO SCH (08:30)
[2022-02-07] MEDS: LORazepam 1 MG TABLET PO SCH (08:30)
[2022-02-07] MEDS: LACTOBACILLUS 1 CAPSULE PO SCH (08:30)
[2022-02-07] MEDS: OXYBUTYNIN CHLORIDE 5 MG TAB.XL.24H PO SCH (08:30)
[2022-02-07] MEDS: predniSONE 20 MG TABLET PO SCH (08:30)
[2022-02-07] MEDS: amLODIPine 10 MG TABLET PO SCH (08:30)
--- NOTE | 2022-02-07 09:39 | Discharge Summary ---
Discharge Provider Provider IMPORTANT FOLLOW-UP INFORMATION FOR PCP: Patient information: Note initiated : 02/07/22 at 9:38 am Service Date, if different from initiated Date: [] Patient: Dorcas Velasquez 61 y/o F admitted on 02/03/22 for confused. Chief Complaint: [] Date of admission: 02/03/22 04:37 Discharge date: 02/07/22 Primary care physician: GIORGI Lopez Consults: 02/03/22 Consult to Physician [CONS] Stat Comment: Consulting Provider: Doc Wong Reason For Exam: Physician to Consult 02/06/22 09:10 Consult to Physician [CONS] Routine Comment: Consulting Provider: Elliot Esparza Reason For Exam: Physician to Consult COURSE Hospital Course Hospital course: Discharge diagnosis * Acute exacerbation of COPD clinically improved on oxygen/bronchodilators/steroid * Complicated hardware related UTI secondary to Serratia multidrug- resistant.Completed 5 days antibiotics, clinically resolved * Severe anxiety remained stable on home dose escitalopram/benzodiazepine/doxepin * Hypokalemia resolved with replacement * Hyponatremia improving, continue regular diet/salt tabs * Hypertension stable on amlodipine * GERD on PPI * Neurogenic bladder and suprapubic catheter, changed January 29 Brief hospital course At this point, the patient has multiple medical issues. Firstly, polypharmacy needs to be addressed and I am holding majority of her home sedatives. She would benefit from a cognitive evaluation with a MoCA. There are concerns that she may have a urinary tract infection as well and she is being empirically covered with ceftriaxone. Due to the patient's poor p.o. intake she likely has hypovolemic hyponatremia. We will trial normal saline IV fluid resuscitation. Her urine studies were not completely consistent with SIADH. Lastly, the patient has ongoing issues with her COPD and we will start duo nebs, Pulmicort and give her a dose of Solu-Medrol. 02/04: The patient's mentation is much improved. Her sodium is improving with IV fluids and is up to 126 today. Urine culture is pending and she will continue empiric ceftriaxone. The patient's home sedatives were held including tizanidine, gabapentin, lorazepam, [place]. We will slowly introduce a low-dose lorazepam and [place]. Polypharmacy should be addressed by her PCP. She does have end-stage COPD and has been started on duo nebs, Pulmicort and prednisone today. Her breathing is much easier today. It is unclear if she can look after herself at home with her end-stage COPD and risk for CO2 retention and poor p.o. intake as she is on several sedatives putting her at high risk for somnolence and falls. 02/05: The patient's hyponatremia is now resolved as her sodium is 130. Urine culture was positive for gram-negative bacillus and she has been maintained on ceftriaxone. Social work and case management will have to work on disposition as there is a concern that she is not able to look after herself at home in the setting of polypharmacy and end-stage COPD. Continue duo nebs, Pulmicort, prednisone and supplemental O2. 02/06- 02/06-patient seen in room. Extremely anxious this morning. Overnight self diuresing, complains of leaking around suprapubic catheter and wants to see urologist Dr. Esparza. patient unsure when the catheter was changed. Nurse expressed concern about patient hyperventilating with sats around 90s. Stat chest x-ray, anxiolytic. Mentation clinically improved. Sodium 128, potassium 3.1 on replacement,Urine culture Serratia multidrug-resistant sensitive to quinolone 02/07-patient doing well. Discharging to SNF with advised to continue daily physical therapy. Follow-up PCP in 5 to 7 days. Discharge diagnosis: . Time Spent with Patient Time attestation: Total time spent providing and/or coordinating discharge services: Time spent: Greater than 30 minutes EXAM Constitutional Vitals: Temp Pulse Resp BP Pulse Ox O2 Del Method O2 Flow Rate 99.2 F H 110 H 15 136/81 98 2 02/07/22 08:01 02/07/22 09:13 02/07/22 09:13 02/07/22 08:01 02/07/22 09:13 02/07/22 09:13 02/07/22 09:13 Discharge Data Data Completed and Pending Labs on day of discharge: Labs from last 24 hours 02/07/22 02/07/22 02/06/22 05:45 05:40 13:30 WBC 6.8 RBC 3.79 Hgb 12.3 Hct 35.8 MCV 94.5 MCH 32.5 MCHC 34.4 RDW 10.3 L Plt Count 241 MPV 8.8 Immature Gran % (Auto) 0.1 Neut % (Auto) 46.3 Lymph % (Auto) 40.4 [place] % (Auto) 12.2 H Eos % (Auto) 1.0 Baso % (Auto) 0 Lymph # (Auto) 2.75 [place] # (Auto) 0.83 Eos # (Auto) 0.07 Baso # (Auto) 0 Immature Gran # 0.01 Absolute Neutrophils 3.15 Sodium Pending Potassium Pending Chloride Pending Carbon Dioxide Pending Anion Gap Pending BUN Pending Creatinine Pending GFR Calculation Pending Glucose Pending Uric Acid Pending Calcium Pending Phosphorus Pending Magnesium Pending Total Bilirubin Pending Direct Bilirubin Pending GGT Pending AST Pending ALT Pending Alkaline Phosphatase Pending Lactate Dehydrogenase Pending Total Protein Pending Albumin Pending Globulin Pending Albumin/Globulin Ratio Pending Triglycerides Pending Urine Color Yellow Urine Appearance Clear Urine pH 6.0 Ur Specific [place] 1.020 Urine Protein Neg Urine Glucose (UA) 150 A Urine Ketones Neg Urine Occult Blood Neg Urine Nitrate Neg Urine Bilirubin Neg Urine Urobilinogen Neg Ur Leukocyte Esterase Neg Ur Culture Indicated? No Preliminary micro results at discharge 02/03/22 00:18 Blood Culture - Preliminary Blood 02/03/22 00:15 Blood Culture - Preliminary Blood Discharge Plan Patient/Caregiver Discharge Instructions Activity: increase activity as tolerated Diet: Regular Diet Activity Restrictions/Additional Instructions: Continue prednisone for 2 days Continue PT OT at [facility] Nutrition support Follow-up PCP in 5 to 7 days Home oxygen to titrate to sats 88% Prescriptions: New prednisone 20 mg Tablet 40 mg PO [facility] Qty: 2 0RF hydrocodone-acetaminophen 10-325 mg Tablet 1 tab PO Q4H PRN (Reason: Pain) Qty: 14 0RF amlodipine 10 mg Tablet 10 mg PO DAILY Qty: 30 0RF lorazepam 1 mg Tablet 1 mg PO BIDP PRN (Reason: anxiety) Qty: 10 0RF Continued fluticasone propionate 50 mcg/actuation spray,suspension 1 spray INTRANASAL Q12H PRN (Reason: Congestion) Rx Instructions: administer into each nostril albuterol sulfate [ProAir HFA] 90 mcg/actuation HFA aerosol inhaler 2 puff INHALATION Q4-6HP PRN (Reason: Respiratory Distress) hydrocodone-acetaminophen [[place]] 10-325 mg tablet 1 tab PO Q4H PRN (Reason: Pain) Rx Instructions: Take one by mouth four times daily and one tablet at bedtime gabapentin 400 mg Capsule 400 mg PO TID Qty: 90 0RF fluticasone propion-salmeterol [Advair Diskus] 250-50 mcg/dose blister with device 1 inh inhalation BID Qty: 60 0RF lorazepam 1 mg tablet 1 tab PO BID escitalopram oxalate 10 mg tablet 1 tab PO QDAY Rx Instructions: Take 1 tablet by mouth once daily after 5mg escitalopram oxalate 5 mg tablet 1 tab PO QDAY Rx Instructions: Take one tablet by mouth once daily for 5 days. Started 01/30/22 doxepin 50 mg capsule 1 cap PO HS Rx Instructions: Take 1 capsule by mouth at bedtime for 7 nights, then increase to 2 capsules at bedtime thereafter. Started 01/28 tizanidine 4 mg tablet 1 tab PO TID omeprazole 20 mg capsule,delayed release(DR/EC) 1 cap PO QDAY PRN (Reason: Heartburn) Discontinued clonazepam 1 mg tablet 1 tab PO TID Follow Up Plan Follow up with: Garland Cadena ARNP [Primary Care Provider] - Patient Disposition: Xfer SNF Prognosis: Fair Rehab Potential: Fair I certify that the patient requires SNF services: Yes Overall status at discharge: patient is progressing back to baseline Discharge Orders: Discharge Order (Routine); Ordered 02/07/22 Ordered By: Yaron MIN VTE Deep Vein Thrombosis/Pulmonary Embolism Present on Admission: No
[2022-02-07] MEDS: cefTRIAXone 1 GM VIAL IV SCH (10:09)
[2022-02-07] MEDS: NICOTINE 14 MG PATCH TOPICAL SCH (11:18)
[2022-02-07 15:41] LABS: ALT/SGPT 24 U/L (<40); AST/SGOT 22 U/L (<32); Albumin 4.4 gm/dL (3.2-5.2); Albumin/Globulin Ratio 1.8 (1.0-2.3); Alkaline Phosphatase 52 U/L (39-117); Bilirubin,Direct < 0.2 mg/dL (0-0.3); Bilirubin,Total 0.2 mg/dL (0.1-1.0); Blood Urea Nitrogen 16 mg/dL (8-23); Calcium 8.7 mg/dL (8.6-10.4); Carbon Dioxide 37 mmol/L (22-30); Chloride 77 mmol/L (96-108); Globulin 2.5 gm/dL (2.2-3.7); Glomerular Filtration Rate 111; Glucose 139 mg/dL (70-105); Lactate Dehydrogenase 250 U/L (135-225); Phosphorous 3.4 mg/dL (2.5-4.5); Triglycerides 59 mg/dL (<150); Uric Acid 1.3 mg/dL (2.5-8.0)
== END 2022-02-07 13:20 | DRG 190 ==
LOC: ED 23:04 → ICU 02-03 04:37
PROVIDERS: ADMIT Student in an Organized Health Care Education/Training Program; ATTEND Internal Medicine